=== PATIENT | female | born 1945 | race Caucasian/White ===

== ENCOUNTER → 2022-04-28 14:32 | Outpatient (BNVA) | payer MEDICARE, SELFPAY | PROVIDERS: PCP Family Medicine; Referring Provider Family Medicine; Visit Provider Physician Assistant Surgical | DX: Z13.89 Encounter for screening for other disorder (principal) ==

== ENCOUNTER → 2022-05-02 13:25 | Outpatient (BNVA) | payer MEDICARE, SELFPAY | PROVIDERS: PCP Family Medicine; Visit Provider Physician Assistant Surgical | DX: E66.9 Obesity, unspecified (principal); Z68.39 Body mass index [BMI] 39.0-39.9, adult | CPT/HCPCS: 99202 ==

== ENCOUNTER 2022-05-06 08:27 | Outpatient (REF) | payer MEDICARE, SELFPAY ==
--- NOTE | ~2022-05-06 | XR_ITS ---
EXAMINATION: XR CHEST CLINICAL INFORMATION: Obesity COMPARISON: None TECHNIQUE: 2 views of the chest were obtained. FINDINGS: No significant abnormality is noted involving the heart, lungs, mediastinum, bony thorax or soft tissues. XR/XR chest 2V IMPRESSION: Unremarkable chest examination.
--- NOTE | 2022-05-06 08:34 | ECG_ITS ---
Test Reason : e66.09 Blood Pressure : / mmHG Vent. Rate : 075 BPM Atrial Rate : 075 BPM P-R Int : 178 ms QRS Dur : 096 ms QT Int : 380 ms P-R-T Axes : 068 000 050 degrees QTc Int : 424 ms Normal sinus rhythm Inferior infarct , age undetermined Abnormal ECG No previous ECGs available Referred By: Ayo Hilario Electronically Signed By:Vincent Clifford
== END 2022-05-06 08:28 | disposition home or self-care (01) ==
LOC: HO.XRAY 08:27
PROVIDERS: PCP Family Medicine; Visit Provider Physician Assistant Surgical
DX: E66.9 Obesity, unspecified (principal); E11.9 Type 2 diabetes mellitus without complications; I10 Essential (primary) hypertension; E78.00 Pure hypercholesterolemia, unspecified
CPT/HCPCS: 71046; 93005

== ENCOUNTER 2022-05-07 07:00 | Outpatient (REF) | payer MEDICARE, SELFPAY ==
[2022-05-07 07:22] LABS: MANUAL DIFF FLAG NO
[2022-05-07 08:11] LABS: Basophils Absolute Auto 0.1 X10*3/uL (0.0-0.2); Basophils Percent Auto 0.6 % (0-2); Eosinophils Absolute Auto 0.1 X10*3/uL (0.0-0.4); Eosinophils Percent Auto 1.5 % (0-4); Hematocrit 42.8 % (37.0-47.0); Hemoglobin 14.3 g/dl (12.0-16.0); Imm Gran Abs Auto 0.03 X10*3/uL (0.00-0.03); Imm Gran Pct Auto 0.4 % (0.0-0.4); Lymphocytes Absolute Auto 2.8 X10*3/uL (1.2-4.9); Lymphocytes Percent Auto 35.1 % (20-40); Mean Corpuscular HGB Conc 33.4 g/dl (31.0-35.0); Mean Corpuscular Hemoglobin 28.8 pg (27.0-33.0); Mean Corpuscular Volume 86.3 fL (80.0-98.0); Mean Platelet Volume 10.6 fL (9.4-12.3); Monocytes Absolute Auto 0.6 X10*3/uL (0.1-1.2); Monocytes Percent Auto 7.3 % (2-11); Neutrophils Absolute Auto 4.4 x10*3/uL (2.0-8.3); Neutrophils Percent Auto 55.1 % (45-73); PLT CLUMP 1; Red Blood Count 4.96 X10*6/uL (4.20-5.50); Red Cell Distribution Width 13.8 % (11.0-16.0); SCAN SMEAR FLAG 1
[2022-05-07 08:34] LABS: Estimated Average Glucose 140 mg/dL; Hemoglobin A1c % 6.5 %
[2022-05-07 08:42] LABS: Alanine Aminotransferase 31 U/L (0-31); Albumin Level 4.6 g/dL (3.5-5.0); Alkaline Phosphatase 75 U/L (39-117); Anion Gap 20 (12-20); Aspartate Amino Transferase 29 U/L (5-31); Bilirubin Total 0.8 mg/dL (0.0-1.0); Blood Urea Nitrogen 21 mg/dL (9-16); C Reactive Protein 0.13 mg/dL (< or = 0.50); Carbon Dioxide 26 mmol/L (22-29); Chloride 98 mmol/L (96-108); Cholesterol 145 mg/dL; Estimated Glomerular Filt Rate > 60; Glucose Random 167 mg/dL (60-115); HDL Cholesterol 42 mg/dL; Iron 98 mcg/dL (30-160); LDL Cholesterol Calculated 66 mg/dl; Percent Iron Saturation 29 % (15-50); Potassium 3.7 mmol/L (3.3-5.1); Sodium 140 mmol/L (135-145); Total Iron Binding Capacity 337 mcg/dL (228-428); Triglycerides 188 mg/dL; Unsaturated Iron Binding 239 ug/dL
[2022-05-07 09:07] LABS: Ferritin 74 ng/mL (10-250); Folate 18.6 ng/mL (> or = 4.0); Insulin 14 uU/mL (2-29); TSH reflex Free T4 1.11 uIU/mL (0.32-4.0); Vitamin B12 348 pg/mL (200-900); Vitamin D 25-OH Total 44.9 ng/mL (>30)
[2022-05-09 15:44] LABS: PTHI 43 pg/mL (16-77)
[2022-05-11 18:43] LABS: Zinc 102 mcg/dL (60-130)
[2022-05-11 22:52] LABS: Vitamin A 86 mcg/dL (38-98)
[2022-05-14 11:42] LABS: Vitamin B1 10 nmol/L (8-30)
== END 2022-05-07 07:01 | disposition home or self-care (01) ==
LOC: HO.LAB 07:00
PROVIDERS: PCP Family Medicine; Visit Provider Physician Assistant Surgical
DX: I10 Essential (primary) hypertension (principal); E66.9 Obesity, unspecified; E78.00 Pure hypercholesterolemia, unspecified; E11.9 Type 2 diabetes mellitus without complications
CPT/HCPCS: 36415; 80053; 80061; 82306; 82607; 82728; 82746; 83036; 83525; 83540; 83970; 84425; 84443; 84590; 84630; 85025; 86140

== ENCOUNTER → 2022-05-12 10:26 | Outpatient (REF) | payer MEDICARE, SELFPAY ==
--- NOTE | 2022-05-12 10:30 | CA_ITS ---
Acquisition Time: 2022-05-12 11:00:06 Total Exercise Time: 00:05:35 Test Indications: R94.31 - Abnormal electrocardio Medications: Protocol: KATHERINE Max HR: 130 BPM 89% of Pred: 146 BPM Max BP: 162/068 mmHG Max Work Load: 7.0 METS Exercise stress test with exercise 5 min 35 sec of Katherine protocol, achieving 89% MPHR, 7 METs, with moderate sob and need to stop, no chest discomfort, without arrythmia, with normotensive response to exercise, without EKG changes meeting criteria for ischemia. In recovery her breathing quickly improved. Test reviewed with Dr Richardson Referred By: Ayo Hilario Overread By: DONAL JAQUEZ
== END ==
LOC: HO.CARD 10:26
PROVIDERS: Visit Provider Physician Assistant Surgical
DX: Z01.818 Encounter for other preprocedural examination (principal); R06.02 Shortness of breath; R94.31 Abnormal electrocardiogram [ECG] [EKG]
CPT/HCPCS: 93017

== ENCOUNTER → 2022-05-17 12:50 | Outpatient (BNVA) | payer MEDICARE, SELFPAY | PROVIDERS: PCP Family Medicine; Visit Provider Physician Assistant Surgical | DX: E66.9 Obesity, unspecified (principal); Z11.0 Encounter for screening for intestinal infectious diseases; Z68.37 Body mass index [BMI] 37.0-37.9, adult | CPT/HCPCS: 83013; 99211; 99212 ==

== ENCOUNTER 2022-05-17 16:43 | Outpatient (REF) | payer MEDICARE, SELFPAY ==
[2022-05-18 12:05] LABS: H Pylori Breath Test Negative (Negative)
== END 2022-05-17 16:44 | disposition home or self-care (01) ==
LOC: HO.LNP 16:43
PROVIDERS: Visit Provider Physician Assistant Surgical
DX: Z13.89 Encounter for screening for other disorder (principal)
CPT/HCPCS: 83013

== ENCOUNTER → 2022-05-24 13:51 | Outpatient (BNVA) | payer MEDICARE, SELFPAY | PROVIDERS: PCP Family Medicine; Referring Provider Family Medicine; Visit Provider Physician Assistant Surgical | DX: R94.31 Abnormal electrocardiogram [ECG] [EKG] (principal); E11.9 Type 2 diabetes mellitus without complications; E66.9 Obesity, unspecified; E78.00 Pure hypercholesterolemia, unspecified; I10 Essential (primary) hypertension; Z68.37 Body mass index [BMI] 37.0-37.9, adult | CPT/HCPCS: 99202 ==

== ENCOUNTER → 2022-05-31 13:11 | Outpatient (BNVA) | payer MEDICARE, SELFPAY | PROVIDERS: PCP Family Medicine; Visit Provider Dietitian, Registered | DX: E66.9 Obesity, unspecified (principal); Z68.36 Body mass index [BMI] 36.0-36.9, adult; E11.9 Type 2 diabetes mellitus without complications; Z79.4 Long term (current) use of insulin | CPT/HCPCS: 97802 ==

== ENCOUNTER → 2022-06-09 13:00 | Outpatient (BNVA) | payer MEDICARE, SELFPAY | PROVIDERS: PCP Family Medicine; Visit Provider Counselor Mental Health | DX: F43.20 Adjustment disorder, unspecified (principal); E66.9 Obesity, unspecified | CPT/HCPCS: 90791 ==

== ENCOUNTER → 2022-06-10 13:19 | Outpatient (BNVA) | payer MEDICARE, SELFPAY | PROVIDERS: PCP Family Medicine; Visit Provider Physician Assistant Surgical | DX: E66.9 Obesity, unspecified (principal); E11.9 Type 2 diabetes mellitus without complications; Z68.35 Body mass index [BMI] 35.0-35.9, adult | CPT/HCPCS: 99212 ==

== ENCOUNTER 2022-06-16 08:16 | Outpatient (REF) | payer MEDICARE, SELFPAY ==
--- NOTE | ~2022-06-16 | FL_ITS ---
EXAMINATION: XR FLUOROSCOPY UPPER GI WITH AIR CLINICAL INFORMATION: Obesity. COMPARISON: None available. TECHNIQUE: Routine upper GI air-contrast study was performed in upright and lying position. FINDINGS: Following oral administration of thick barium and effervescent gas there is normal propagation of bolus from the oral cavity through the pharynx, esophagus into stomach without any evidence of obstruction, narrowing or stricture. There is small hiatal hernia in upright view. On placing patient supine and prone the course, caliber and peristalsis of the stomach are normal. There is a small hiatal hernia with mild gastroesophageal reflux. There is a prominent duodenal papilloma or mucosal fold at the insertion of CBD. FLUOROSCOPY TIME: 2.2 minutes DOSE AREA PRODUCT: 47.81 uGy-m2 (microgray-meter squared) FL/FL upper GI w air IMPRESSION: Small hiatal hernia in upright and lying position with mild gastroesophageal reflux. Prominent duodenal ampulla at insertion of CBD.
--- NOTE | ~2022-06-16 | US_ITS ---
EXAMINATION: US COMPLETE ABDOMEN WITH LIVER ELASTOGRAPHY CLINICAL INFORMATION: Obesity COMPARISON: None available. TECHNIQUE: Real-time imaging of the abdominal viscera. Noninvasive ultrasound liver fibrosis assessment is performed using Kane ElastPQ point quantification shear wave elastography (2D-SWE) with a C5-2 MHz transducer. Multiple elastography samples are obtained. FINDINGS: PANCREAS: Normal. The visualized pancreatic head and body are normal in appearance. The remainder of the pancreas is obscured from visualization by the overlying bowel gas. ABDOMINAL AORTA: The proximal, middle, and distal aortic segments are normal in caliber. INFERIOR VENA CAVA: Visualized portions are normal. LIVER: Normal. The liver demonstrates normal size, contour and echogenicity. No focal lesion or intrahepatic biliary duct dilatation. The right lobe measures 16.0 cm in length. The left lobe measures 12.0 cm in length. Portal flow is hepatopedal. Shear wave liver elastography median stiffness is 1.3 m/s (reference: normal median stiffness is 1.3 m/s or less). IQR/median stiffness to assess sampling precision is 0.08 (reference: good quality data set is IQR/median stiffness of 0.15 or less). GALLBLADDER: Status post cholecystectomy. COMMON BILE DUCT: Normal in caliber measuring 0.6 cm in diameter. RIGHT KIDNEY: Normal. No hydronephrosis. No renal calculi or focal parenchymal lesions. The kidney measures 11.1 cm in maximum dimension. LEFT KIDNEY: Normal. No hydronephrosis. No renal calculi or focal parenchymal lesions. The kidney measures 10.4 cm in maximum dimension. SPLEEN: Normal. The spleen measures 10.6 cm in maximum dimension. FREE FLUID: None. US/US abdomen comp w elastography IMPRESSION: 1. Normal abdominal ultrasound study. 2. Liver elastography: Measurements are consistent with a high probability of normal liver stiffness. REFERENCE: Society of Radiologists in Ultrasound Liver Stiffness Thresholds (2020): LIVER STIFFNESS THRESHOLDS: *Liver Stiffness equal or less than 1.3 m/s: High probability of being normal. *Liver Stiffness less than 1.7 m/s: In the absence of other known clinical signs, rules out compensated advanced chronic liver disease. *Liver Stiffness 1.7-2.1 m/s: Suggestive of compensated advanced chronic liver disease but need further test for confirmation. *Liver Stiffness over 2.1 m/s: Rules in compensated advanced chronic liver disease. *Liver Stiffness over 2.4 m/s: Suggestive of clinically significant portal hypertension. QUALITY OF DATA SET: *IQR/Median value equal or less than 0.15 implies a quality data set. *IQR/Median value over 0.15 implies a poor quality data set. SIGNIFICANT CHANGE FROM PRIOR EXAM: Significant change if liver stiffness measurement is 10% or greater from prior exam. OTHER CONSIDERATIONS: The stage of liver fibrosis may be overestimated in the setting of acute hepatitis, liver inflammation, elevated liver function tests, hepatic vascular congestion, obstructive cholestasis, non-fasting state, and infiltrative diseases such as amyloidosis and lymphoma. In some patients with NAFLD, the liver stiffness thresholds for compensated advanced chronic liver disease may be lower. In causes other than viral hepatitis and NAFLD, liver stiffness thresholds are not well established.
== END 2022-06-16 08:17 | disposition home or self-care (01) ==
LOC: HO.US 08:16
PROVIDERS: PCP Family Medicine; Visit Provider Physician Assistant Surgical
DX: E66.9 Obesity, unspecified (principal); E11.9 Type 2 diabetes mellitus without complications; E78.00 Pure hypercholesterolemia, unspecified; I10 Essential (primary) hypertension
CPT/HCPCS: 74246; 76705; 76981

== ENCOUNTER → 2022-06-21 13:17 | Outpatient (BNVA) | payer MEDICARE, SELFPAY | PROVIDERS: PCP Family Medicine; Visit Provider Surgery | DX: E66.9 Obesity, unspecified (principal); E11.9 Type 2 diabetes mellitus without complications; K21.9 Gastro-esophageal reflux disease without esophagitis; I10 Essential (primary) hypertension; J45.909 Unspecified asthma, uncomplicated; E78.00 Pure hypercholesterolemia, unspecified; R94.31 Abnormal electrocardiogram [ECG] [EKG]; F43.20 Adjustment disorder, unspecified; Z68.35 Body mass index [BMI] 35.0-35.9, adult | CPT/HCPCS: 99212 ==

== ENCOUNTER → 2022-06-28 13:17 | Outpatient (BNVA) | payer MEDICARE, SELFPAY | PROVIDERS: PCP Family Medicine; Referring Provider Family Medicine; Visit Provider Dietitian, Registered | DX: E66.9 Obesity, unspecified (principal); Z68.34 Body mass index [BMI] 34.0-34.9, adult | CPT/HCPCS: 97803 ==

== ENCOUNTER → 2022-07-04 10:54 | Outpatient (BNVA) | payer MEDICARE, SELFPAY | PROVIDERS: PCP Family Medicine; Visit Provider Counselor Mental Health ==

== ENCOUNTER → 2022-07-05 13:25 | Outpatient (BNVA) | payer MEDICARE, SELFPAY | PROVIDERS: PCP Family Medicine; Visit Provider Physician Assistant Surgical | DX: E66.9 Obesity, unspecified (principal); Z68.34 Body mass index [BMI] 34.0-34.9, adult | CPT/HCPCS: 99212 ==

== ENCOUNTER → 2022-07-11 14:42 | Outpatient (REF) | payer MEDICARE, SELFPAY ==
--- NOTE | 2022-07-11 14:44 | CA_ITS ---
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 Study Quality: Technically Difficult ECG Rhythm: Sinus Conclusions: - 1. Normal LV systolic function with grade I diastolic dysfunction 2. Left atrium is moderately dilated 3. Normal cardiac valvular dopplers. 4. Normal RVSP 5. No pericardial effusion Findings Left Ventricle Normal left ventricular size, thickness, and systolic function. The visually estimated ejection fraction is between 60-65%. Spectral Doppler is indicative of an impaired relaxation filling pattern. E/E prime ratio is <8, consistent with normal filling pressures. Peak GLS is -18.2%, within acceptable limits. Right Ventricle Normal right ventricular cavity size and systolic function. Atria The left atrium is moderately dilated. There is no evidence of interatrial shunt. The right atrium is normal in size. Aortic Valve The aortic valve structure and function is likely normal. There is no aortic valve stenosis. There is no aortic valve regurgitation. Mitral Valve Normal mitral valve structure and function. There is trace mitral valve regurgitation. There is no mitral valve stenosis. Pulmonic Valve The pulmonic valve was not well visualized. Tricuspid Valve Normal tricuspid valve structure. There is trace tricuspid valve regurgitation. The right ventricular systolic pressure is normal. The right ventricular systolic pressure is 22 mmHg. Normal right atrial pressure. There is no evidence of pulmonary hypertension. Great Vessels All visible segments of the aorta are normal in size. The pulmonary artery was not well visualized. Venous The inferior vena cava is normal in size and collapses greater than 50% with inspiration. Pericardium/Pleural There is no evidence of pericardial effusion. Prior Study Comparison No prior study available for comparison. Measurements 2D Linear Measurements IVSd: 1.04 0.6-0.9/0.6-1.0 cm LVIDd: 4.37 3.9-5.3/4.2-5.9 cm LVIDd Index: 2.24 2.4-3.2/2.2-3.1 cm/m2 LVIDs: 2.94 2.0-3.6 cm LVPWd: 0.98 0.7-1.1 cm LA Diam: 3.00 2.7-3.8/3.0-4.0 cm LAIDs Index: 1.54 1.5-2.3 cm/m2 LV Mass: 184.69 67-162/88-224 g LV Mass Index: 94.71 43-95/49-115 g/m2 LVOT Diam: 2.10 3.0+(-)1.3 cm 2D Systolic Function EF 4C: 61.00 >55% EF 2C: 64.30 >55% EF BiP: 61.40 >55% Mitral Valve MV Pk E: 0.82 MV PK A: 1.08 MV Decel Time: 285.00 E/A: 0.80 E'Lateral: 13.20 E'Medial: 7.62 E/E' Med: 10.70 E/E' Lat: 6.20 PHT: 83.00 MVA PHT: 2.65 Decel [place]: 2.86 Aortic Valve AoV Pk Ray[place]undo: 1.62 AoV Mn [place]: 1.10 AoV VTI: 0.40 AoV Pk Grad: 10.00 Aov Mn Grad: 6.00 JIM Cont.VTI: 2.58 LVOT LVOT Pk Ray[place]: 1.26 LVOT Mn [place]: 0.80 LVOT VTI: 0.30 LVOT Pk Grad: 6.00 LVOT Mn Grad: 3.00 LVOT Diam: 2.10 LVOT Area: 3.46 Diastolic Function MV Pk E: 0.82 MV Pk A: 1.08 E/A: 0.80 E'Medial: 7.62 E/E' Med: 10.70 E' Laterial: 13.20 E/E' Lat: 6.20 Right Ventricle TAPSE (mm): 23.80 TVS' Raymundo: 12.30 Tricuspid Valve TR Pk Raymundo: 2.19 TR Pk Grad: 19.00 RA Press: 3.00 RVSP: 22.00 Great Vessels Aorta Sinus of Valsalva: 3.01 2.0-3.5 cm Ao Asc: 3.10 2.1-3.4 cm Updated in Other Vendor System with Status of Final Edward Richardson MD electronically signed on 07/12/2022 12:05:07 PM with status of Final
== END ==
LOC: HO.CARD 14:42
PROVIDERS: PCP Family Medicine; Visit Provider Internal Medicine
DX: I25.10 Atherosclerotic heart disease of native coronary artery without angina pectoris (principal); R94.31 Abnormal electrocardiogram [ECG] [EKG]
CPT/HCPCS: 93306; 93356

== ENCOUNTER → 2022-07-15 12:42 | Outpatient (BNVA) | payer MEDICARE, SELFPAY | PROVIDERS: PCP Family Medicine; Visit Provider Surgery ==

== ENCOUNTER → 2022-07-21 09:22 | Outpatient (BNVA) | payer MEDICARE, SELFPAY | PROVIDERS: PCP Family Medicine; Visit Provider Physician Assistant ==

== ENCOUNTER → 2022-07-22 09:49 | Outpatient (BNVA) | payer MEDICARE, SELFPAY | PROVIDERS: PCP Family Medicine; Visit Provider Dietitian, Registered | DX: E66.9 Obesity, unspecified (principal); Z68.34 Body mass index [BMI] 34.0-34.9, adult | CPT/HCPCS: 97803 ==

== ENCOUNTER → 2022-07-25 09:15 | Outpatient (BNVA) | payer MEDICARE, SELFPAY | PROVIDERS: PCP Family Medicine; Visit Provider Physician Assistant Surgical | DX: Z01.810 Encounter for preprocedural cardiovascular examination (principal); R94.31 Abnormal electrocardiogram [ECG] [EKG]; I10 Essential (primary) hypertension; E11.9 Type 2 diabetes mellitus without complications; E66.01 Morbid (severe) obesity due to excess calories; Z68.35 Body mass index [BMI] 35.0-35.9, adult | CPT/HCPCS: 99212 ==

== ENCOUNTER → 2022-07-27 13:12 | Outpatient (BNVA) | payer MEDICARE, SELFPAY | PROVIDERS: PCP Family Medicine; Visit Provider Surgery | DX: E66.01 Morbid (severe) obesity due to excess calories (principal); E11.9 Type 2 diabetes mellitus without complications; I10 Essential (primary) hypertension; K21.9 Gastro-esophageal reflux disease without esophagitis; J45.909 Unspecified asthma, uncomplicated; E78.00 Pure hypercholesterolemia, unspecified; Z68.35 Body mass index [BMI] 35.0-35.9, adult | CPT/HCPCS: 99212 ==

== ENCOUNTER 2022-08-03 06:13 | Inpatient (IN) | payer MEDICARE, SELFPAY ==
[2022-07-27 11:37] VITALS: BMI 35.4
[2022-07-28 07:00] LABS: MANUAL DIFF FLAG NO
[2022-07-28 07:46] LABS: Basophils Percent Auto 0.4 % (0-2); Eosinophils Absolute Auto 0.2 X10*3/uL (0.0-0.4); Hematocrit 41.5 % (37.0-47.0); Hemoglobin 13.6 g/dl (12.0-16.0); Imm Gran Abs Auto 0.03 X10*3/uL (0.00-0.03); Imm Gran Pct Auto 0.4 % (0.0-0.4); Lymphocytes Absolute Auto 2.8 X10*3/uL (1.2-4.9); Mean Corpuscular HGB Conc 32.8 g/dl (31.0-35.0); Mean Corpuscular Hemoglobin 28.7 pg (27.0-33.0); Mean Corpuscular Volume 87.6 fL (80.0-98.0); Mean Platelet Volume 10.4 fL (9.4-12.3); Monocytes Absolute Auto 0.5 X10*3/uL (0.1-1.2); Monocytes Percent Auto 6.3 % (2-11); Neutrophils Absolute Auto 4.5 x10*3/uL (2.0-8.3); Neutrophils Percent Auto 55.9 % (45-73); Platelet Count 336 X10*3/uL (160-400); Red Blood Count 4.74 X10*6/uL (4.20-5.50); Red Cell Distribution Width 14.6 % (11.0-16.0)
[2022-07-28 07:53] LABS: Prothrombin Time 11.2 SEC (10.0-13.1)
[2022-07-28 07:56] LABS: Estimated Average Glucose 140 mg/dL; Hemoglobin A1c % 6.5 %
[2022-07-28 08:08] LABS: Alanine Aminotransferase 35 U/L (0-31); Albumin Level 4.4 g/dL (3.5-5.0); Alkaline Phosphatase 76 U/L (39-117); Anion Gap 17 (12-20); Aspartate Amino Transferase 21 U/L (5-31); Bilirubin Total 0.8 mg/dL (0.0-1.0); Blood Urea Nitrogen 24 mg/dL (9-16); C Reactive Protein 0.17 mg/dL (< or = 0.50); Calcium 10.4 mg/dL (8.4-10.2); Carbon Dioxide 28 mmol/L (22-29); Chloride 102 mmol/L (96-108); Cholesterol 193 mg/dL; Creatinine Clr Calc Pharmacy 65.7; Estimated Glomerular Filt Rate > 60; Glucose Random 181 mg/dL (60-115); HDL Cholesterol 42 mg/dL; Iron 95 mcg/dL (30-160); LDL Cholesterol Calculated 103 mg/dl; Percent Iron Saturation 31 % (15-50); Potassium 4.7 mmol/L (3.3-5.1); Sodium 142 mmol/L (135-145); Total Iron Binding Capacity 308 mcg/dL (228-428); Total Protein 6.6 g/dL (6.5-8.0); Triglycerides 243 mg/dL; Unsaturated Iron Binding 213 ug/dL
[2022-07-28 08:35] LABS: Ferritin 75 ng/mL (10-250); Vitamin B12 388 pg/mL (200-900); Vitamin D 25-OH Total 55.5 ng/mL (>30)
[2022-07-29 14:08] LABS: Calcium (PTHI) 10.4 mg/dL (8.6-10.4); PTHI 65 pg/mL (16-77)
[2022-08-02 05:09] LABS: Zinc 91 mcg/dL (60-130)
--- NOTE | 2022-08-02 09:47 | HO.ANESPROP2 ---
Documented by User: Esther Sanchez NP 08/02/22 09:51 HPI - Anesthesia Eval Consult details Narrative: 76yo F for Gastrectomy Sleeve, EGD, poss Diaphragmatic hernia, Poss ventral Hernia Poss Open. Cardiac cleared PMFSH Active Problems Active Problems: All Active Problems (Updated 07/27/22 @ 14:06 by Donald White MD) Hiatal hernia (Acute) Obesity (BMI 30-39.9) (Acute) Diabetes (Acute) HTN (hypertension) (Acute) GERD (gastroesophageal reflux disease) (Acute) Asthma (Acute) Hypercholesterolemia (Acute) Abnormal EKG (Acute) Adjustment disorder, unspecified (Acute) Preoperative cardiovascular examination (Acute) Morbid obesity due to excess calories (Acute) Past Medical History Medical History Asthma Diabetes Dry eyes Eczema GERD (gastroesophageal reflux disease) Hiatal hernia HTN (hypertension) Obesity Osteoarthritis Family History Family History Mother No problems noted. Father No problems noted. Brother Diabetes Brother Diabetes Brother Cancer Heart disease Surgical History Surgical History Hx of appendectomy Hx of cholecystectomy Hx of colonoscopy Hx of tonsillectomy Hx of unilateral oophorectomy Hx of unilateral salpingectomy Social History Social History Are you a primary childbirth and infant care teacher to a significant other at home: No Do you presently have visiting nurse or other home services: No Alcohol intake: never Patient Tobacco Use Status: Former Tobacco user Quit Date: 25 yrs ago Tobacco use type: Cigarette Second Hand Smoke Exposure: No Use of substances other than those prescribed or required for medical reasons: No Have you been hit, kicked, punched, or otherwise hurt by someone within the past year? If so, by whom?: No Are you DNR?: No Advance Directives: No Advance Directives Information Provided: Yes (Info Mailed w/ pre-op instructions) Advance Directives on File: No Recently lost weight without trying: No How much weight loss: 14-23 pounds Nutrition Risks: No Nutritional Risk Poor oral hygiene: No (Capped teeth) Meds Allergies Allergy/AdvReac Type Severity Reaction Status Date / Time azithromycin Allergy Mild Hives Verified 07/27/22 13:19 cyclosporine Allergy Mild Hives Verified 07/27/22 13:19 iodine Allergy Mild Anaphylaxis Verified 07/27/22 13:19 Latex, Natural Rubber Allergy Mild Anaphylaxis Verified 07/27/22 13:19 morphine Allergy Mild Headache Verified 07/27/22 13:19 Penicillins Allergy Mild Hives Verified 07/27/22 13:19 umeclidinium Allergy Mild Hives Verified 07/27/22 13:19 [From [place] Ellipta] EPINEPHRINE Allergy Mild RAPID Uncoded 07/25/22 15:11 HEARTBEAT Home Medications Medication Instructions Recorded Confirmed Last Taken Type ZINC 50 mg PO DAILY 04/28/22 07/27/22 Unknown History albuterol sulfate 2.5 mg/3 mL 2.5 mg inhalation BID PRN Wheezing 04/28/22 07/27/22 Unknown History (0.083 %) solution for nebulization albuterol sulfate 90 mcg/actuation 2 inh inhalation Q4-6H PRN Wheezing 04/28/22 07/27/22 Unknown History breath activated powder inhaler amlodipine 10 mg tablet 10 mg PO DAILY 04/28/22 07/27/22 08/03/22 History atorvastatin 40 mg tablet (Lipitor) 40 mg PO QPM 04/28/22 07/27/22 Unknown History cetirizine 10 mg capsule (Zyrtec) 10 mg PO DAILY PRN Allergy Symptoms 04/28/22 07/27/22 Unknown History desoximetasone 0.25 % topical cream 1 appl topical DAILY PRN Rash 04/28/22 07/27/22 Unknown History docusate sodium 100 mg capsule 100 mg PO DAILY 04/28/22 07/27/22 Unknown History (Colace) econazole 1 % topical cream 1 appl topical DAILY 04/28/22 07/27/22 Unknown History epinephrine 0.3 mg/0.3 mL 0.3 mg IM Q4H PRN Anaphylaxis 04/28/22 07/27/22 Unknown History injection, auto-injector (EpiPen) fluocinonide 0.05 % topical 1 appl topical BID-QID PRN as 04/28/22 07/27/22 Unknown History solution directed hydroxyzine HCl 25 mg tablet 25 mg PO BEDTIME 04/28/22 07/27/22 Unknown History losartan 100 mg tablet 100 mg PO DAILY 04/28/22 07/27/22 Unknown History pen needle, diabetic 32 gauge x 04/28/22 07/27/22 Unknown History (BD Ultra-Fine Elisa Pen Needle) fluticasone 250 mcg-salmeterol 50 1 inh inhalation BID 05/24/22 07/27/22 08/03/22 History mcg/dose blistr powdr for inhalation (Advair Diskus) esomeprazole magnesium 40 mg 40 mg PO DAILY 07/05/22 07/27/22 Unknown History capsule,delayed release (Nexium) chlorthalidone 50 mg tablet 50 mg PO DAILY 07/27/22 07/27/22 Unknown History fluticasone propionate 110 1 puff inhalation BID 07/27/22 07/27/22 Unknown History mcg/actuation HFA aerosol inhaler (Flovent HFA) multivitamin 1 tab PO DAILY 07/27/22 07/27/22 Unknown History Exam Exam Date and Time: August 02, 2022 0947 Height,Weight and Vital Signs: Height 5 ft 4.5 in Weight 95.254 kg Pertinent Lab Results Pertinent Lab Results: Laboratory Tests 07/28/22 07/28/22 07/28/22 06:50 06:59 06:59 WBC 8.0 RBC 4.74 Hgb 13.6 Hct 41.5 MCV 87.6 MCH 28.7 MCHC 32.8 RDW 14.6 Plt Count 336 MPV 10.4 Immature Gran % (Auto) 0.4 Neut % (Auto) 55.9 Lymph % (Auto) 35.0 [place] % (Auto) 6.3 Eos % (Auto) 2.0 Baso % (Auto) 0.4 Lymph # (Auto) 2.8 [place] # (Auto) 0.5 Eos # (Auto) 0.2 Baso # (Auto) 0.0 Abs Immat Gran (auto) 0.03 Absolute Neuts (auto) 4.5 Absolute Nucleated RBC 0.000 Nucleated RBC % (auto) 0.0 PT 11.2 INR 1.0 APTT 30.0 Sodium Potassium Chloride Carbon Dioxide Anion Gap BUN Creatinine Estim Creat Clear Calc Estimated GFR Random Glucose Estimat Average Glucose Hemoglobin A1c % Calcium Iron TIBC % Saturation Unsat Iron Binding Ferritin Total Bilirubin AST ALT Alkaline Phosphatase C-Reactive Protein Total Protein Albumin Triglycerides Cholesterol LDL Cholesterol, Calc HDL Cholesterol Vitamin B12 25-OH Vitamin D Total TSH PTH Intact Calcium (PTH Intact) Zinc Blood Type A Positive Antibody Screen NEGATIVE 07/28/22 07/28/22 07/28/22 06:59 06:59 06:59 WBC RBC Hgb Hct MCV MCH MCHC RDW Plt Count MPV Immature Gran % (Auto) Neut % (Auto) Lymph % (Auto) [place] % (Auto) Eos % (Auto) Baso % (Auto) Lymph # (Auto) [place] # (Auto) Eos # (Auto) Baso # (Auto) Abs Immat Gran (auto) Absolute Neuts (auto) Absolute Nucleated RBC Nucleated RBC % (auto) PT INR APTT Sodium 142 Potassium 4.7 D Chloride 102 Carbon Dioxide 28 Anion Gap 17 BUN 24 H Creatinine 0.84 Estim Creat Clear Calc 65.7 Estimated GFR > 60 Random Glucose 181 H Estimat Average Glucose 140 Hemoglobin A1c % 6.5 Calcium 10.4 H Iron 95 TIBC 308 % Saturation 31 Unsat Iron Binding 213 Ferritin 75 Total Bilirubin 0.8 AST 21 ALT 35 H Alkaline Phosphatase 76 C-Reactive Protein 0.17 Total Protein 6.6 Albumin 4.4 Triglycerides 243 Cholesterol 193 LDL Cholesterol, Calc 103 HDL Cholesterol 42 Vitamin B12 388 25-OH Vitamin D Total 55.5 TSH 1.40 PTH Intact 65 Calcium (PTH Intact) 10.4 Zinc Blood Type Antibody Screen 07/28/22 06:59 WBC RBC Hgb Hct MCV MCH MCHC RDW Plt Count MPV Immature Gran % (Auto) Neut % (Auto) Lymph % (Auto) [place] % (Auto) Eos % (Auto) Baso % (Auto) Lymph # (Auto) [place] # (Auto) Eos # (Auto) Baso # (Auto) Abs Immat Gran (auto) Absolute Neuts (auto) Absolute Nucleated RBC Nucleated RBC % (auto) PT INR APTT Sodium Potassium Chloride Carbon Dioxide Anion Gap BUN Creatinine Estim Creat Clear Calc Estimated GFR Random Glucose Estimat Average Glucose Hemoglobin A1c % Calcium Iron TIBC % Saturation Unsat Iron Binding Ferritin Total Bilirubin AST ALT Alkaline Phosphatase C-Reactive Protein Total Protein Albumin Triglycerides Cholesterol LDL Cholesterol, Calc HDL Cholesterol Vitamin B12 25-OH Vitamin D Total TSH PTH Intact Calcium (PTH Intact) Zinc 91 Blood Type Antibody Screen Narrative Narrative: EKG 05/2022 Vent. Rate : 075 BPM ? ? Atrial Rate : 075 BPM ?? P-R Int : 178 ms? QRS Dur : 096 ms ? ? QT Int : 380 ms ? ? ? P-R-T Axes : 068 000 050 degrees ?? QTc Int : 424 ms ? Normal sinus rhythm Inferior infarct , age undetermined Abnormal ECG No previous ECGs available Exercise Stress 05/2022 Protocol: TRU ? Max HR: 130 BPM? 89% of? Pred: 146 BPM Max BP: 162/068 mmHG Max Work Load: 7.0 METS ? Exercise stress test with exercise 5 min 35 sec of Tru protocol, achieving 89% ?MPHR, 7 METs, with moderate sob and need to stop, no chest discomfort, without ?arrythmia, with normotensive response to exercise, without EKG changes meeting ?criteria for ischemia. In recovery her breathing quickly improved.? Test ?reviewed with Dr Richardson ECHO 07/2022 Conclusions: - 1. Normal LV systolic function with grade I diastolic? dysfunction? 2. Left atrium is moderately dilated ? 3. Normal cardiac valvular dopplers. ? 4. Normal RVSP ? 5. No pericardial effusion ?? Assessment and Plan Assessment Anesthesia Assessment: Chart Reviewed Documented by User: Daly Blum MD 08/03/22 09:46 [facility] Active Problems Active Problems: All Active Problems (Updated 08/03/22 @ 14:06 by Daly Blum MD) Hiatal hernia (Acute) Obesity (BMI 30-39.9) (Acute) Diabetes (Acute) HTN (hypertension) (Acute) GERD (gastroesophageal reflux disease) (Acute) Asthma (Acute) Hypercholesterolemia (Acute) Abnormal EKG (Acute) Adjustment disorder, unspecified (Acute) Preoperative cardiovascular examination (Acute) Morbid obesity due to excess calories (Acute) Denies RUEL Past Medical History Medical History Asthma Diabetes Dry eyes Eczema GERD (gastroesophageal reflux disease) Hiatal hernia HTN (hypertension) Obesity Osteoarthritis Family History Family History Mother No problems noted. Father No problems noted. Brother Diabetes Brother Diabetes Brother Cancer Heart disease Family history of problems with anesthesia: No Surgical History Surgical History Hx of appendectomy Hx of cholecystectomy Hx of colonoscopy Hx of tonsillectomy Hx of unilateral oophorectomy Hx of unilateral salpingectomy History of Problems with Anesthesia: No Social History Social History Are you a primary childbirth and infant care teacher to a significant other at home: No Do you presently have visiting nurse or other home services: No Alcohol intake: never Patient Tobacco Use Status: Former Tobacco user Quit Date: 25 yrs ago Tobacco use type: Cigarette Second Hand Smoke Exposure: No Use of substances other than those prescribed or required for medical reasons: No Have you been hit, kicked, punched, or otherwise hurt by someone within the past year? If so, by whom?: No Are you DNR?: No Advance Directives: No Advance Directives Information Provided: Yes (Info Mailed w/ pre-op instructions) Advance Directives on File: No Recently lost weight without trying: No How much weight loss: 14-23 pounds Nutrition Risks: No Nutritional Risk Poor oral hygiene: No (Capped teeth) Meds Allergies Allergy/AdvReac Type Severity Reaction Status Date / Time azithromycin Allergy Mild Hives Verified 07/27/22 13:19 cyclosporine Allergy Mild Hives Verified 07/27/22 13:19 iodine Allergy Mild Anaphylaxis Verified 07/27/22 13:19 Latex, Natural Rubber Allergy Mild Anaphylaxis Verified 07/27/22 13:19 morphine Allergy Mild Headache Verified 07/27/22 13:19 Penicillins Allergy Mild Hives Verified 07/27/22 13:19 umeclidinium Allergy Mild Hives Verified 07/27/22 13:19 [From [place] Ellipta] EPINEPHRINE Allergy Mild RAPID Uncoded 07/25/22 15:11 HEARTBEAT Home Medications Medication Instructions Recorded Confirmed Last Taken Type ZINC 50 mg PO DAILY 04/28/22 07/27/22 Unknown History albuterol sulfate 2.5 mg/3 mL 2.5 mg inhalation BID PRN Wheezing 04/28/22 07/27/22 Unknown History (0.083 %) solution for nebulization albuterol sulfate 90 mcg/actuation 2 inh inhalation Q4-6H PRN Wheezing 04/28/22 07/27/22 Unknown History breath activated powder inhaler amlodipine 10 mg tablet 10 mg PO DAILY 04/28/22 07/27/22 08/03/22 History atorvastatin 40 mg tablet (Lipitor) 40 mg PO QPM 04/28/22 07/27/22 Unknown History cetirizine 10 mg capsule (Zyrtec) 10 mg PO DAILY PRN Allergy Symptoms 04/28/22 07/27/22 Unknown History desoximetasone 0.25 % topical cream 1 appl topical DAILY PRN Rash 04/28/22 07/27/22 Unknown History docusate sodium 100 mg capsule 100 mg PO DAILY 04/28/22 07/27/22 Unknown History (Colace) econazole 1 % topical cream 1 appl topical DAILY 04/28/22 07/27/22 Unknown History epinephrine 0.3 mg/0.3 mL 0.3 mg IM Q4H PRN Anaphylaxis 04/28/22 07/27/22 Unknown History injection, auto-injector (EpiPen) fluocinonide 0.05 % topical 1 appl topical BID-QID PRN as 04/28/22 07/27/22 Unknown History solution directed hydroxyzine HCl 25 mg tablet 25 mg PO BEDTIME 04/28/22 07/27/22 Unknown History losartan 100 mg tablet 100 mg PO DAILY 04/28/22 07/27/22 Unknown History pen needle, diabetic 32 gauge x 04/28/22 07/27/22 Unknown History (BD Ultra-Fine Elisa Pen Needle) fluticasone 250 mcg-salmeterol 50 1 inh inhalation BID 05/24/22 07/27/22 08/03/22 History mcg/dose blistr powdr for inhalation (Advair Diskus) esomeprazole magnesium 40 mg 40 mg PO DAILY 07/05/22 07/27/22 Unknown History capsule,delayed release (Nexium) chlorthalidone 50 mg tablet 50 mg PO DAILY 07/27/22 07/27/22 Unknown History fluticasone propionate 110 1 puff inhalation BID 07/27/22 07/27/22 Unknown History mcg/actuation HFA aerosol inhaler (Flovent HFA) multivitamin 1 tab PO DAILY 07/27/22 07/27/22 Unknown History Exam Height,Weight and Vital Signs: Height 5 ft 4.5 in Weight 95.254 kg Vital Signs Temp Pulse Resp BP Pulse Ox O2 Del Method 08/03/22 06:32 97.0 F 62 18 163/60 H 95 Room Air Pertinent Lab Results Pertinent Lab Results: Laboratory Tests 07/28/22 07/28/22 07/28/22 06:50 06:59 06:59 WBC 8.0 RBC 4.74 Hgb 13.6 Hct 41.5 MCV 87.6 MCH 28.7 MCHC 32.8 RDW 14.6 Plt Count 336 MPV 10.4 Immature Gran % (Auto) 0.4 Neut % (Auto) 55.9 Lymph % (Auto) 35.0 [place] % (Auto) 6.3 Eos % (Auto) 2.0 Baso % (Auto) 0.4 Lymph # (Auto) 2.8 [place] # (Auto) 0.5 Eos # (Auto) 0.2 Baso # (Auto) 0.0 Abs Immat Gran (auto) 0.03 Absolute Neuts (auto) 4.5 Absolute Nucleated RBC 0.000 Nucleated RBC % (auto) 0.0 PT 11.2 INR 1.0 APTT 30.0 Sodium Potassium Chloride Carbon Dioxide Anion Gap BUN Creatinine Estim Creat Clear Calc Estimated GFR Random Glucose Estimat Average Glucose Hemoglobin A1c % Calcium Iron TIBC % Saturation Unsat Iron Binding Ferritin Total Bilirubin AST ALT Alkaline Phosphatase C-Reactive Protein Total Protein Albumin Triglycerides Cholesterol LDL Cholesterol, Calc HDL Cholesterol Vitamin B12 25-OH Vitamin D Total TSH PTH Intact Calcium (PTH Intact) Zinc Blood Type A Positive Antibody Screen NEGATIVE 07/28/22 07/28/22 07/28/22 06:59 06:59 06:59 WBC RBC Hgb Hct MCV MCH MCHC RDW Plt Count MPV Immature Gran % (Auto) Neut % (Auto) Lymph % (Auto) [place] % (Auto) Eos % (Auto) Baso % (Auto) Lymph # (Auto) [place] # (Auto) Eos # (Auto) Baso # (Auto) Abs Immat Gran (auto) Absolute Neuts (auto) Absolute Nucleated RBC Nucleated RBC % (auto) PT INR APTT Sodium 142 Potassium 4.7 D Chloride 102 Carbon Dioxide 28 Anion Gap 17 BUN 24 H Creatinine 0.84 Estim Creat Clear Calc 65.7 Estimated GFR > 60 Random Glucose 181 H Estimat Average Glucose 140 Hemoglobin A1c % 6.5 Calcium 10.4 H Iron 95 TIBC 308 % Saturation 31 Unsat Iron Binding 213 Ferritin 75 Total Bilirubin 0.8 AST 21 ALT 35 H Alkaline Phosphatase 76 C-Reactive Protein 0.17 Total Protein 6.6 Albumin 4.4 Triglycerides 243 Cholesterol 193 LDL Cholesterol, Calc 103 HDL Cholesterol 42 Vitamin B12 388 25-OH Vitamin D Total 55.5 TSH 1.40 PTH Intact 65 Calcium (PTH Intact) 10.4 Zinc Blood Type Antibody Screen 07/28/22 06:59 WBC RBC Hgb Hct MCV MCH MCHC RDW Plt Count MPV Immature Gran % (Auto) Neut % (Auto) Lymph % (Auto) [place] % (Auto) Eos % (Auto) Baso % (Auto) Lymph # (Auto) [place] # (Auto) Eos # (Auto) Baso # (Auto) Abs Immat Gran (auto) Absolute Neuts (auto) Absolute Nucleated RBC Nucleated RBC % (auto) PT INR APTT Sodium Potassium Chloride Carbon Dioxide Anion Gap BUN Creatinine Estim Creat Clear Calc Estimated GFR Random Glucose Estimat Average Glucose Hemoglobin A1c % Calcium Iron TIBC % Saturation Unsat Iron Binding Ferritin Total Bilirubin AST ALT Alkaline Phosphatase C-Reactive Protein Total Protein Albumin Triglycerides Cholesterol LDL Cholesterol, Calc HDL Cholesterol Vitamin B12 25-OH Vitamin D Total TSH PTH Intact Calcium (PTH Intact) Zinc 91 Blood Type Antibody Screen Laboratory Results - last 24 hr 08/02/22 08/03/22 14:00 06:29 POC Glucose 198 H COVID-19 ([facility]) Negative COVID-19 Clin Com See Note Narrative Narrative: EKG 05/2022 Vent. Rate : 075 BPM ? ? Atrial Rate : 075 BPM ?? P-R Int : 178 ms? QRS Dur : 096 ms ? ? QT Int : 380 ms ? ? ? P-R-T Axes : 068 000 050 degrees ?? QTc Int : 424 ms ? Normal sinus rhythm Inferior infarct , age undetermined Abnormal ECG No previous ECGs available Exercise Stress 05/2022 Protocol: TRU ? Max HR: 130 BPM? 89% of? Pred: 146 BPM Max BP: 162/068 mmHG Max Work Load: 7.0 METS ? Exercise stress test with exercise 5 min 35 sec of Tru protocol, achieving 89% MPHR, 7 METs, with moderate sob and need to stop, no chest discomfort, without arrythmia, with normotensive response to exercise, without EKG changes meeting criteria for ischemia. In recovery her breathing quickly improved.? Test reviewed with Dr Richardson ECHO 07/2022 Conclusions: - 1. Normal LV systolic function with grade I diastolic? dysfunction. Impaired relaxation.EF 60-65%? 2. Left atrium is moderately dilated ? 3. Normal cardiac valvular dopplers. ? 4. Normal RVSP ? 5. No pericardial effusion ?? Airway Mallampati Class: III TM Dist: >3cm Neck ROM: Full Loose/Missing/Broken Teeth: Yes (Some extractions. Small teeth with excess space in between. Denies broken or loose teeth) Heart: RRR Lungs: CTAB Assessment and Plan Assessment Anesthesia Assessment: Anesthesia Plan Discussed Final Anesthetic Review Family History of Problems with Anesthesia: No History of Problems with Anesthesia: No NPO: Yes ASA Class: III Final Preanesthetic Review: No Changes in Pt Med Stat, Meds/Allgs Chart Reviewed, Consent Obtained/Reviewed and Anes Risks/Benef Reviewed Patient Risk: Intermediate Procedure Risk: Intermediate Assessment/Block/Sedation in SS: Assess/Block/Sedation- Anesthetic Plan Anesthetic Plan: GA Disposition: Standard PACU and Inp. Admit - Standard Bed
[2022-08-02 14:49] LABS: COVID-19 Test Negative (Negative); IDNOW Serial# 08D9AD1C
[2022-08-03] VITALS (12 sets, daily range): BP systolic 137–163; BP diastolic 60–78; PULSE 62–89; RESP 16–21; TEMP 36.1–36.6; O2SAT 90–95
[2022-08-03 06:39] LABS: Glucose, Whole Blood 198 mg/dL (60-115)
--- NOTE | 2022-08-03 06:41 | P.OP_ITS ---
Operative Note Operative Note Date of Service: 08/03/22 Narrative: Preop diagnosis: [Obesity, BMI 35.6/210 lb, insulin-dependent type 2 diabetes, hypertension, hypercholesterolemia, hiatal hernia with GERD] Postop diagnosis: [Same and hepatomegaly, NAFLD, hiatal hernia] Procedure: [Laparoscopic sleeve gastrectomy, laparoscopic hiatal hernia repair, gastropexy, lysis of adhesions, intraoperative endoscopy(esophagogastroscopy)] Surgeon: Donald White MD Assist: [Ayo Hilario PA-C] Anesthesia: [GET, local, bupivacaine, 0.5% with epi ] Estimated blood loss: [20cc] Specimen: [Portion of stomach with fundus] Intraoperative findings: [Adhesions from the omentum to the umbilicus and midline up to the xiphoid and round ligament of the liver were noted, in addition to left upper quadrant and right upper quadrant adhesions. 33 minutes of lysis of adhesion was required to place all trocars for surgery. A 2.5 cm hiatal hernia was noted at the diaphragmatic hiatus and required repair. An enlarged fatty liver was noted as well as plethoric vickie gastric vessels which is suggestive of probable FERMIN.] Indications: [The patient is a 76-year-old woman with a lifelong struggle with obesity and the related comorbidities of type 2 diabetes requiring insulin, hypertension, hypercholesterolemia. The patient is also had a hiatal hernia identified on upper GI and complaints of GERD for years that have worsened with her obesity. After demonstrating healthy lifestyle changes including diet and increased activity with accompanying weight loss, that he option of continued medical management versus bariatric surgery was reviewed. Discussion of laparoscopic gastric bypass and laparoscopic sleeve gastrectomy and possible need for hiatal hernia repair was discussed at length with the patient and she wanted to proceed with a sleeve gastrectomy. We discussed the probable need for hiatal hernia repair in and the inherent risks of recurrent, especially if she regains weight. I reviewed the inherent risks of this procedure which include, but are not limited to: Bleeding that could require another operation or blood transfusion; the inherent risks of transfusion reaction infectious disease from blood transfusions; the risk of staple line leaks that could cause sepsis, multi-system organ failure and ; the risk of mesenteric or deep vein thrombosis of the lower extremities that could cause a fatal pulmonary embolism was reviewed; the risk of GERD that could require conversion to gastric bypass was discussed; the risk of recurrent hiatal hernia, especially in the setting of weight regain was reviewed. The risk of weight regain if maladaptive eating and sedentary behavior continue was discussed. We discussed the age related recommendations and bariatric surgery, and given that the patient's longevity and quality of life could be significantly shortened due to her obesity related comorbidities, I believe her decision to be sound. The importance of proper diet and increased activity to augment surgical weight loss and the fact that no operation would result in weight loss of poor dietary choices and sedentary behavior are resumed were discussed at length and apparently understood. The patient seemed understand her options and wanted to proceed.] Procedure: [The patient was identified in the preoperative holding area and again an operating room 6. Patient was placed supine on the operating table. Safety straps were utilized and a footboard utilized. The patient was induced in general endotracheal anesthesia administered with excellent effect. An appropriate time-out was performed. The patient's abdomen was then widely prepped and draped in the usual manner for surgery using Chlorprep. Antibiotics per protocol were administered by Anesthesia. The pt voided her bladder studio operations manager to surgery. SCDs were utilized. After infiltrating preemptive local in the skin and subcutaneous tissues in the left subcostal space, a stab incision was made sharply and the Veress needle inserted without incident. Appropriate drop test was performed then a pneumoperitoneum of 15 mmHg was obtained using carbon dioxide. Opening pressures were 7mm Hg. Preemptive local was used at all trocar insertion sites and I began in the epigastric midline 10 cm from the xiphoid. A transverse incision was made. Next, a 5 mm 0 degree scope over a 5 mm Optiview trocar was used to access the abdomen in the in the midline of the epigastrium approxima tely 10 cm from the xiphoid. Upon entering, the obturator was removed and the abdomen explored. There was no evidence of injury from the Veress needle in it was removed. The bowel and deep structures were examined for injury from the trocar and none identified. The scope was then switched to a 5 mm 45 degree scope. Next, using preemptive local, additional 5 mm trocars were placed under direct laparoscopic vision and the 5 mm midline trocar upsized to a 12 mm to accommodate the stapler. A lysis of adhesions which added 33 minutes to operative time was required. The patient had omental adhesions from a prior umbilical hernia repair and he jean-baptiste seen in her left and right upper quadrant that were filmy and required lysis of adhesions in order to finish placing the trocars. The patient was then positioned in reverse Trendelenburg and the liver retractor deployed through the right lateral 5 mm trocar and secured. An hiatal hernia was demonstrated once the liver retractor was positioned. The stomach was already decompressed, but the 40 Q[place] ViSiGi was inserted to the GE junction by the anesthesiologist without difficulty. Dissection was begun along the greater curvature using the 5 mm [place] LigaSure for hemostasis. Dissection was then carried towards the pylorus to 3-4 cm from the pylorus and retro gastric adhesions lysed. The gastroesophageal fat pad was carefully mobilized taking care to avoid injury to the esophagus and stomach and dissection carried towards the short gastrics taking care to avoid injury to the spleen and splenic artery. The diaphragmatic hiatus was carefully examined for a hernia which was present as described, so repair was indicated. Dissection was carried from the left roxi of the diaphragm posteriorly, anteriorly to the phrenoesophageal membrane. Next, the phrenoesophogeal memberane was open anterior and the pars flaccida opened to access the right roxi of the diaphragm. The esophagus was carefully preserved, mobilized & freed into the abdomen for 3cm by dissection carried into the mediastinum. The esophagus was then surrounded with a quarter-inch [place] drain and retracted anteriorly to facilitate posterior repair. Posterior dissection of the retroesophageal area was performed to demonstrate both crurae and hiatal hernia repair was performed using one 0 silk sutures with posterior repair. Closure was observed to be adequate with [address] Next, the 40 Q[place] ViSiGi bougie was advanced by anesthesiologist under direct vision and laparoscopic guidance and positioned in the antrum using laparoscopic graspers to serve as a guide for a stapled sleeve gastrectomy. Stapling was performed with [employer] stapler with a purple 45 and then orange 45 and 60 loads. The 10 mm clip customer training specialist was used to apply additional clips to the staple line. Care was taken to be sure that the sleeve laid flat and was without stricture. Once the sleeve was complete, the portion of stomach was placed in the lower abdomen to be sent for permanent section. The staple line, gastrocolic omentum, spleen and short gastric areas were all inspected for hemostasis which was found to be good. The lavage tube was withdrawn under laparoscopic vision. The bougie was then removed. After inspecting again for hemostasis, a gastropexy was performed using 2-0 Polysorb suture to secure the sleeve gastrectomy to the gastrocolic omentum with intracorporeal suture technique. Next, I broke scrub perform an on-table upper endoscopy to assess the sleeve and the esophagus and stomach. The patient was returned to neutral position and the Olympus 160 gastroscope was advanced taking care to preserve the endotracheal tube. The esophagus was intubated without incident. Minimal air was insufflated and the scope advanced into the newly formed sleeve. The staple line was inspected for hemostasis and the morphology of the sleeve appeared straight with a uniform diameter. Intraoperatively, there was no evidence of staple line leak as my surgical supply assistant instilled sterile saline into the operative field via endoscope. The scope was then used to aspirate the air from the sleeve withdrawn and removed. I then rescrubbed to return to the operative field and again inspected the field for hemostasis. The patient was again placed in reverse Trendelenburg. After final assessment for hemostasis, the patient was returned to neutral position, a Natalie used to withdraw the stomach which was sent for permanent section. The fascia of the 12 mm midline was closed using an 0 Polysorb figure of 8 on a suture passer under direct laparoscopic vision. The abdomen was then deflated and all trocars removed. The suture was then tied and the skin closed with 4-0 Monocryl subcuticular sutures. The abdomen was then washed and dried, benzoin and Steri-Strips, 2x2s & Tegaderms. The patient tolerated the procedure well was then extubated and sent to PACU in stable condition. All sponge needle and instrument counts were correct x2. At the patient's request, I contacted Doris Looney at [phone] to apprise her of the operation, typical postoperative course, possible need to alter the course and answered her questions. Preoperatively, the patient noted that she would buy the prescribed Carafate elixir rather than have tablets.]
--- NOTE | 2022-08-03 06:41 | MHC.SHP ---
Pre-Procedural Eval Section A Date of Service: 08/03/22 The patient is an INPATIENT: Yes The History & Physical has been completed within 30 days and I have reviewed it.: Yes Section B Chief Complaint: Obesity, BMI 35.5, DM2, HTN, Hypercholesterolemia Allergies: Allergies Allergy/AdvReac Type Severity Reaction Status Date / Time azithromycin Allergy Mild Hives Verified 07/27/22 13:19 cyclosporine Allergy Mild Hives Verified 07/27/22 13:19 iodine Allergy Mild Anaphylaxis Verified 07/27/22 13:19 Latex, Natural Rubber Allergy Mild Anaphylaxis Verified 07/27/22 13:19 morphine Allergy Mild Headache Verified 07/27/22 13:19 Penicillins Allergy Mild Hives Verified 07/27/22 13:19 umeclidinium Allergy Mild Hives Verified 07/27/22 13:19 [From Incruse Ellipta] EPINEPHRINE Allergy Mild RAPID Uncoded 07/25/22 15:11 HEARTBEAT Plan I have reviewed the history and physical and performed a pertinent physical examination on my patient. No changes have occurred unless specified. Time Spent With Patient Time: Total time managing care of this patient today ____ minutes.
[2022-08-03] MEDS: Lactated Ringers 1,000 ML 150 ML IVCONT (06:55)
[2022-08-03] MEDS: Aprepitant 32 MG/4.4 ML VIAL IVPUSH (06:55)
--- NOTE | 2022-08-03 13:16 | PM.DS ---
DS: Providers Provider Date of Service: 08/04/22 Date of admission: 08/03/22 06:13 Primary care physician: Elyse Vasquez MD DS: Summary Hospital Course Hospital Course: ADMITTING DIAGNOSIS: obesity,HTN, HLD, GERD, DM, asthma ? DISCHARGE DIAGNOSIS: same, s/p laparoscopic sleeve gastrectomy and repair diaphragmatic hernia and lysis of adhesions ? PAST SURGICAL HISTORY: appendectomy, laparoscopic cholecystectomy, oophorectomy, salpingectomy ? PROCEDURE: upper endoscopy, laparoscopic sleeve gastrectomy and repair of diaphragmatic hernia hernia and lysis of adhesions ? DISCHARGE SUMMARY: ? History of Present Illness: ? The patient is a?76 year-old woman with a BMI of?39.8? kg/m2 and associated co-morbidities as described above. The patient had extensive work-up,lost?25 lbs preoperatively and was electively scheduled for laparoscopic, possible open sleeve gastrectomy and gastropexy. Risks and complications of the surgery were discussed with the patient in advance, particularly the possibility of , pulmonary embolism, anastomotic leak, bleeding, bowel injury, GERD, cardiac, renal or pulmonary complications. The patient understood all the risks and was in agreement with the surgical plan. ? Hospital Course: ? The patient underwent an uneventful laparoscopic sleeve gastrectomy with gastropexy and repair of diaphragmatic hernia on the day of admission. Postoperatively, the patient was transferred to the surgical floor. The patient received IV Acetaminophen and IV dilaudid for pain control. Patient was started on bariatric phase 1 diet POD #0. On postoperative day one, the patient was feeling well without nausea, vomiting, fevers, or tachycardia. The patient had some mild incisional pain and the abdomen was soft. ? On the morning of postoperative day one, the patient was continued on 1 ounce of water or ice every half hour. During the day, the patient did fairly well, having some incisional pain, but able to ambulate adequately and to tolerate liquids well. ? Since the patient is doing well, we decided that the patient was ready to be discharged. The patient was given instructions to follow-up with me next week and to call my office for any fever over 101, persistent abdominal pain, nausea, vomiting, GERD, symptoms of DVT such as calf tenderness, or leg swelling, or pulmonary embolism such as chest pain or shortness of breath. The patient was also instructed to drink 40-60 ounces of liquids per day using the 1-ounce cups. The patient had been given prescriptions for Tylenol for pain, Zofran prn for nausea, and pantoprazole and carafate previously. The patient was encouraged to ambulate and use the incentive spirometer. The patient was allowed to shower, but no baths, and encouraged to stay active at home. All of these instructions were given to the patient personally. All questions were answered and the patient understood all instructions, the instructions were also given to the patient in print. Time Spent with Patient Time attestation: Total time managing care of this patient today ____ minutes. Discharge coordination time: Less than 30 minutes Quality: Safe Use of Opioids Does Pt have an Active Cancer Diagnosis on the Problem List?: No Quality: Stroke Does the patient have a stroke diagnosis?: No Physical Exam Vital Signs: Vital Signs: Last Vital Signs Temp 97.0 F 08/03/22 06:32 Pulse 62 08/03/22 06:32 Resp 18 08/03/22 06:32 BP 163/60 H 08/03/22 06:32 Pulse Ox 95 08/03/22 06:32 O2 Del Method Room Air 08/03/22 06:32 BMI result Body Mass Index 35.4 DS: Data Data Completed and Pending Pending studies at discharge: Pending at discharge 08/03/22 12:46 Surgical [PTH] Routine Labs on day of discharge: Laboratory Results - last 24 hr 08/02/22 08/03/22 14:00 06:29 POC Glucose 198 H COVID-19 ([facility]) Negative COVID-19 Clin Com See Note Discharge Plan Discharge Anticipated Discharge Date/Time: 08/04/22 10:00 Patient Disposition: Home, Self-Care Discharge Diagnosis: s/p laparoscopic sleeve gastrectomy and repair of diaphragmatic hernia Referrals: Elyse Vasquez MD [Primary Care Provider] - 1 Week Discharge Medications: Continued fluticasone propionate [Flovent HFA] 110 mcg/actuation HFA aerosol inhaler 1 puff INHALATION BID esomeprazole magnesium [Nexium] 40 mg capsule,delayed release(DR/EC) 40 mg PO DAILY hydroxyzine HCl 25 mg tablet 25 mg PO BEDTIME desoximetasone 0.25 % cream 1 appl topical DAILY PRN (Reason: Rash) econazole 1 % cream 1 appl topical DAILY fluocinonide 0.05 % solution 1 appl topical BID-QID PRN (Reason: as directed) losartan 100 mg tablet 100 mg PO DAILY atorvastatin [Lipitor] 40 mg tablet 40 mg PO QPM amlodipine 10 mg tablet 10 mg PO DAILY albuterol sulfate 90 mcg/actuation aerosol powdr breath activated 2 inh inhalation Q4-6H PRN (Reason: Wheezing) Zyrtec 10 mg capsule 10 mg PO DAILY PRN (Reason: Allergy Symptoms) epinephrine [EpiPen] 0.3 mg/0.3 mL auto-injector 0.3 mg IM Q4H PRN (Reason: Anaphylaxis) albuterol sulfate 2.5 mg /3 mL (0.083 %) solution for nebulization 2.5 mg inhalation BID PRN (Reason: Wheezing) fluticasone propion-salmeterol [Advair Diskus] 250-50 mcg/dose blister with device 1 inh inhalation BID ondansetron HCl 4 mg tablet 4 mg PO Q6H PRN (Reason: nausea and vomiting) Qty: 20 0RF sucralfate 100 mg/mL suspension 10 ml PO BID 30 Days Qty: 600 2RF acetaminophen 500 mg/15 mL liquid 500 mg PO Q6H PRN (Reason: fever or pain) Qty: 237 2RF No Action (DME) pen needle, diabetic [BD Ultra-Fine Elisa Pen Needle] 32 gauge x 5/32 needle See Rx Instructions .Route Rx Instructions: As directed Discharge Orders: Discharge Order (Routine); Ordered 08/04/22 Ordered By: Peyton Mcdermott Activity on Discharge: No heavy lifting Stand Alone Forms: Patient Portal Discharge page Care Plan Goals: weight loss Health Concerns: obesity Plan of Treatment: No tub baths, sex or returning to work until discussed at first post op appointment. No exercise, alcohol, tobacco or illegal drug use. Continue to use incentive spirometer hourly while awake. Walk in home for 5- 10 minutes every 2 hours during the first week. Follow all instructions in the bariatric handbook and call with any questions.Discharge Instructions 1. Please call your doctor or come back to the emergency room should any new symptoms arise. 2. You will receive a courtesy call from [facility] 24-48 hours after discharge. 3. Activity: abstain from alcohol, practice limited stair climbing, no bending, no driving, no exercise, no illicit substances, no lifting, no sex, no tub bath, no work. 4. Diet: continue as discussed with Dr. White. 5. Dressing Change/Wound Care: Your incision is covered by clear bandages and guaze underneath. If the area is tender, you may apply an ice pack for short intervals (no more than 20 minutes on, followed by at least 20 minutes off). Do not apply heat. Do not use creams, lotions, or topical antibiotics unless instructed to do so by your surgeon. These can cause infection or allergic reaction. 6. Call your doctor if: - Your temperature exceeds 101.5 F - You experience excessive pain or swelling - You have an unexpected reaction to medication - You have excessive bleeding - You experience continued vomiting/nausea - Your incision begins to separate - Your incision shows signs of infection such as increased redness, swelling, excessive pain, heat, or drainage (light blood or clear fluid is normal) 7. General instructions: No lifting greater than 5 lbs for the next 4 weeks[address] driving within 24 hours of taking narcotic pain medications. If you do not move your bowels in the next 2 days, please take milk of magnesia over the counter. Please follow the post op diet and do not advance your diet until you are seen in the office in about 2 weeks. Please walk around your home every hour or two to prevent blood clots from forming in your legs. You do not need to wake from sleeping to walk. Please sleep in a bed or couch to prevent kinking at the hips and knees. Please take your incentive spirometer (your lung gas operations analyst) home with you and use it for the next few days to prevent pneumonias. You may shower, no hot tubs, baths or swimming pools. Please call the office with any questions or concerns such as increasing abdominal pain, fever, chills, shortness of breath, chest pain, leg pain or swelling, or redness or drainage from your incisions. Please stay on stage 3 diet which includes sugar free clear liquids such as ice pops and jello and broth and crystal light. Avoid all carbonation. Please drink 3 protein shakes with at least 25-30 grams of protein daily or 3 of the Celebrate 4:1 shakes which can be purchased in our office. The Celebrate shakes have all of the bariatric vitamins you need if you consume these shakes. If you are drinking other protein shakes, you will need to purchase the Celebrate multivitamins and calcium that we provide in the office (they will provide all the vitamins you need). Please make sure you are consuming at least 40-60 ounces of water in addition to your 3 protein shakes daily. Do not hesitate to contact the office with any questions at . The patient's medical history has been reviewed and they are considered low risk for post op DVT and therefore DVT prophylaxis is not considered necessary. Travel after surgery was reviewed. The patient has not disclosed any travel plans during the first 30 days after surgery and they have been advised that within the first 30 days after surgery any bus, plane, train or car travel over 2 hours in duration is contraindicated due to the possibility of developing blood clots from immobility. Any travel, needs to include periods of ambulation of 10 minutes in duration every 2 hours.? The patient was instructed to discuss any plans for travel during this period with their bariatric surgeon. Assessment: stable, s/p laparoscopic sleeve gastrectomy and repair of diaphragmatic hernia Discharge Date/Time: 08/04/22 09:41
--- NOTE | 2022-08-03 13:50 | PHA.MEDREC ---
Pharmacy Consult ? Medication Reconciliation [facility] rec review against discharge notes from 08/03/22 Pharmacy has completed the medication reconciliation.
[2022-08-03 14:03] LABS: Hemoglobin 13.1 g/dl (12.0-16.0)
--- NOTE | 2022-08-03 14:17 | PM.PNGS ---
Subjective Subjective Date of Service: 08/03/22 Interval history: Patient is seen in PACU. She denies any nausea or vomiting. She is thirsty and reports expected retrosternal discomfort secondary to her hiatal hernia repair and sleeve gastrectomy. Physical Exam Vital Signs: Vital Signs: Last Vital Signs Temp 97.4 F 08/03/22 13:12 Pulse 81 08/03/22 13:42 Resp 20 08/03/22 13:42 BP 160/77 H 08/03/22 13:42 Pulse Ox 95 08/03/22 13:42 O2 Del Method Nasal Cannula wit h Capnography 08/03/22 13:42 O2 Flow Rate 2 08/03/22 13:42 FiO2 46 08/03/22 13:42 BMI result Body Mass Index 35.4 On exam, she is somnolent She is in no acute respiratory distress Dressings are intact and binder in place Objective Data Active Medications Albuterol Sulfate (Albuterol Sulfate (0.083%) 2.5 Mg/3 Ml Vial.Neb) 2.5 mg INHALE ONCE PRN PRN Reason: Shortness of Breath/Wheezing Albuterol Sulfate (Albuterol Sulfate (0.083%) 2.5 Mg/3 Ml Vial.Neb) 2.5 mg INHALE BID PRN PRN Reason: Wheezing Albuterol Sulfate (Albuterol Sulfate 90 Mcg 8 Gm Inhaler) 2 puff INHALE Q4H PRN PRN Reason: Wheezing Amlodipine Besylate (Amlodipine Besylate 10 Mg Tablet) 10 mg PO DAILY GABBY; Protocol Fentanyl (Fentanyl Citrate/Pf 100 Mcg/2 Ml Vial) 25 mcg IVPUSH Q5M PRN; Protocol PRN Reason: Pain, Moderate(Pain Scale 4-6) Fluticasone/Vilanterol (Fluticasone/Vilanterol 100/25 Blst.W.Dev) 1 puff INHALE RDAILY GABBY Hydromorphone HCl (Hydromorphone Hcl 0.5 Mg/0.5 Ml Syringe) 0.25 mg IVPUSH Q5M PRN; Protocol PRN Reason: Pain, Severe (Pain Scale 7-10) Lactated Ringer's (Lr) 1,000 mls @ 150 mls/hr IVCONT .Q6H40M [facility] Last Admin: 08/03/22 06:55 Dose: 150 mls/hr Documented By: LYNDA Promethazine HCl 6.25 mg/ (Sodium Chloride) 50.25 mls @ 201 mls/hr IV ONCE PRN PRN Reason: Nausea and Vomiting Lactated Ringer's (Lr) 1,000 mls @ 100 mls/hr IVCONT .Q10H G[facility] Ondansetron HCl (Ondansetron Hcl 4 Mg/2 Ml Vial) 4 mg IVPUSH ONCE PRN PRN Reason: Nausea and Vomiting Labs 08/03/22 13:57 07/28/22 06:59 Labs: Laboratory Results - last 24 hr 08/02/22 08/03/22 14:00 06:29 POC Glucose 198 H COVID-19 (ELIZABETH) Negative COVID-19 Clin Com See Note Procedures Date of Service Date of Service: 08/03/22 Progress Note: A&P Assessment and plan (1) S/P laparoscopic sleeve gastrectomy: Status: Acute (2) Status post repair of paraesophageal diaphragmatic hernia: Status: Acute (3) Hiatal hernia: Status: Acute (4) Obesity (BMI 30-39.9): Status: Acute (5) Diabetes: Status: Acute (6) HTN (hypertension): Status: Acute (7) GERD (gastroesophageal reflux disease): Status: Acute (8) Asthma: Status: Acute (9) Hypercholesterolemia: Status: Acute Plan See orders Start sips of water Trend labs, exam. At the patient's request, I spoke with her friend, Doris Looney, at [phone] regarding the operation, whih required ROSHNI & HHR. Time Spent With Patient Time: Total time managing care of this patient today ____ minutes. Quality Stroke Does the patient have a stroke diagnosis?: No VTE Prior VTE?: No VTE Risk Level:: Surgical - moderate VTE Device Contraindication: N/A - Device Ordered VTE Drug Contraindication: Treatment Not Tolerated
[2022-08-03 14:20] LABS: Anion Gap 13 (12-20); Blood Urea Nitrogen 17 mg/dL (9-16); Calcium 9.7 mg/dL (8.4-10.2); Carbon Dioxide 27 mmol/L (22-29); Chloride 102 mmol/L (96-108); Creatinine Clr Calc Pharmacy 57.5; Estimated Glomerular Filt Rate 57; Glucose Random 238 mg/dL (60-115); Potassium 3.4 mmol/L (3.3-5.1); Sodium 139 mmol/L (135-145)
[2022-08-03] MEDS: Acetaminophen 1,000 MG/100 ML PIGGYBACK 16.7 MG IV ×2 (15:15→21:19)
[2022-08-03] MEDS: Metoclopramide HCl 10 MG/2 ML VIAL IVPUSH (16:32)
[2022-08-03] MEDS: Insulin Lispro 100 UNIT/ML 3 ML VIAL SUBCUT ×2 (16:35→21:18)
[2022-08-03 16:37] LABS: Glucose, Whole Blood 241 mg/dL (60-115)
[2022-08-03 16:48] LABS: Vitamin B1 11 nmol/L (8-30)
[2022-08-03 20:53] LABS: Glucose, Whole Blood 201 mg/dL (60-115)
[2022-08-03] MEDS: Famotidine/PF 20 MG/2 ML VIAL IVPUSH (21:20)
[2022-08-03] MEDS: HYDROmorphone HCl 0.5 MG/0.5 ML SYRINGE 0.25 MG IVPUSH (22:14)
[2022-08-04] MEDS: Lactated Ringers 1,000 ML 100 ML IVCONT (01:29)
[2022-08-04 02:39] VITALS: BP 140/78; PULSE 82; RESP 16; TEMP 36.2; O2SAT 95
[2022-08-04 07:00] VITALS: BP 161/73; PULSE 79; RESP 18; TEMP 36.7; O2SAT 95
[2022-08-04 07:26] LABS: Glucose, Whole Blood 141 mg/dL (60-115)
--- NOTE | 2022-08-04 08:00 | P.PNGS_ITS ---
Subjective Subjective Date of Service: 08/04/22 Patient reports: feels better, pain is less and tolerating liquids well Interval history: The patient is seen walking in the halls. She went back to her room for a more thorough evaluation and discussion. She does report a headache but is having no issues with chest pain, regurgitation, nausea or vomiting. She reports that she is tolerating sips of water. She otherwise denies difficulty breathing, chest pain or shortness of breath and no leg swelling or pain. She was up to void last night. Physical Exam Vital Signs: Vital Signs: Last Vital Signs Temp 98.1 F 08/04/22 07:00 Pulse 79 08/04/22 07:00 Resp 18 08/04/22 07:00 BP 161/73 H 08/04/22 07:00 Pulse Ox 95 08/04/22 07:00 O2 Del Method Room Air 08/04/22 07:00 O2 Flow Rate 2 08/03/22 14:53 FiO2 43 08/03/22 14:27 BMI result Body Mass Index 35.4 On exam, she is in good spirits, she is nontoxic She is in no acute respiratory distress Abdominal binder dressing is intact with expected incisional pain Objective Data Active Medications Albuterol Sulfate (Albuterol Sulfate (0.083%) 2.5 Mg/3 Ml Vial.Neb) 2.5 mg INHALE ONCE PRN PRN Reason: Shortness of Breath/Wheezing Albuterol Sulfate (Albuterol Sulfate (0.083%) 2.5 Mg/3 Ml Vial.Neb) 2.5 mg INHALE BID PRN PRN Reason: Wheezing Albuterol Sulfate (Albuterol Sulfate 90 Mcg 8 Gm Inhaler) 2 puff INHALE Q4H PRN PRN Reason: Wheezing Amlodipine Besylate (Amlodipine Besylate 10 Mg Tablet) 10 mg PO DAILY [facility]; Protocol Famotidine (Famotidine/Pf 20 Mg/2 Ml Vial) 20 mg IVPUSH BID [facility] Last Admin: 08/03/22 21:20 Dose: 20 mg Documented By: ALEJANDRO Fentanyl (Fentanyl Citrate/Pf 100 Mcg/2 Ml Vial) 25 mcg IVPUSH Q5M PRN; Protocol PRN Reason: Pain, Moderate(Pain Scale 4-6) Fluticasone/Vilanterol (Fluticasone/Vilanterol 100/25 Blst.W.Dev) 1 puff INHALE [facility] Glucose (Glucose Gel 15 Gm Gel..Gram.) 15 gm PO Q15M PRN; Protocol PRN Reason: per Hypoglycemia Standing Ord. Hydromorphone HCl (Hydromorphone Hcl 0.5 Mg/0.5 Ml Syringe) 0.25 mg IVPUSH Q5M PRN; Protocol PRN Reason: Pain, Severe (Pain Scale 7-10) Hydromorphone HCl (Hydromorphone Hcl 0.5 Mg/0.5 Ml Syringe) 0.25 mg IVPUSH Q4H PRN; Protocol PRN Reason: Pain, Moderate(Pain Scale 4-6) Last Admin: 08/03/22 22:14 Dose: 0.25 mg Documented By: ALEJANDRO Promethazine HCl 6.25 mg/ (Sodium Chloride) 50.25 mls @ 201 mls/hr IV ONCE PRN PRN Reason: Nausea and Vomiting Lactated Ringer's (Lr) 1,000 mls @ 100 mls/hr IVCONT .Q10H [facility] Last Admin: 08/04/22 01:29 Dose: 100 mls/hr Documented By: ALEJANDRO Dextrose (D10) 250 mls @ 750 mls/hr IV Q15M PRN; Protocol PRN Reason: per Hypoglycemia Standing Ord. Acetaminophen (Ofirmev) 1,000 mg in 100 mls @ 16.7 mls/hr IV .Q6H [facility] Last Admin: 08/04/22 04:21 Dose: Not Given Documented By: ALEJANDRO Non-Admin Reason: IV Running Insulin Human Lispro (Insulin Lispro 100 Unit/Ml 3 Ml Vial) [facility]; Protocol Last Admin: 08/04/22 07:44 Dose: Not Given Documented By: JARAD Non-Admin Reason: No Insulin Coverage Metoclopramide HCl (Metoclopramide Hcl 10 Mg/2 Ml Vial) 10 mg IVPUSH Q6H PRN PRN Reason: Nausea Last Admin: 08/03/22 16:32 Dose: 10 mg Documented By: JARAD Ondansetron HCl (Ondansetron Hcl 4 Mg/2 Ml Vial) 4 mg IVPUSH ONCE PRN PRN Reason: Nausea and Vomiting Ondansetron HCl (Ondansetron Hcl 4 Mg/2 Ml Vial) 4 mg IVPUSH Q8H PRN PRN Reason: Nausea and Vomiting Sodium Chloride (0.9 % Sodium Chloride Flush 3 Ml Syringe) 3 ml IVFLUSH QSHIFT [facility] Last Admin: 08/04/22 07:00 Dose: Not Given Documented By: JARAD Non-Admin Reason: IV Running Labs 08/03/22 13:57 08/03/22 13:57 Labs: Laboratory Results - last 24 hr 07/28/22 08/03/22 08/03/22 06:59 13:57 16:30 Anion Gap 13 Estim Creat Clear Calc 57.5 Estimated GFR 57 POC Glucose 241 H Random Glucose 238 H Calcium 9.7 D Vitamin B1 11 08/03/22 08/04/22 20:44 07:09 Anion Gap Estim Creat Clear Calc Estimated GFR POC Glucose 201 H 141 H Random Glucose Calcium Vitamin B1 Labs from 08/04/22 are reviewed hemoglobin is stable at 13.0; white blood cell count is elevated at 16.4 which is likely due to stress response from surgery; platelet count 300 K Electrolytes are within normal parameters, BUN 11, creatinine 0.81 Glucose slightly elevated at 124 Procedures Date of Service Date of Service: 08/04/22 Progress Note: A&P Assessment and plan (1) Status post repair of paraesophageal diaphragmatic hernia: Status: Acute (2) S/P laparoscopic sleeve gastrectomy: Status: Acute (3) Hiatal hernia: Status: Acute (4) Obesity (BMI 30-39.9): Status: Acute (5) Diabetes: Status: Acute (6) HTN (hypertension): Status: Acute (7) GERD (gastroesophageal reflux disease): Status: Acute (8) Hypercholesterolemia: Status: Acute (9) Asthma: Status: Acute (10) Morbid obesity due to excess calories: Status: Acute Plan The patient appears stable for discharge. Await morning labs which were drawn at 07:30 Assuming labs are stable, the patient is okay for discharge after the PA reviews dietary instructions. 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 ADDENDUM 0830 Labs reviewed. Patient is stable for discharge assuming she is meeting high duration criteria. Can resume protein shakes today. Diabetes managed as previously outlined. Time Spent With Patient Time: Total time managing care of this patient today ____ minutes. Quality Stroke Does the patient have a stroke diagnosis?: No VTE Prior VTE?: No VTE Risk Level:: Surgical - moderate VTE Device Contraindication: N/A - Device Ordered VTE Drug Contraindication: Treatment Not Tolerated
[2022-08-04 08:04] LABS: MANUAL DIFF FLAG NO
[2022-08-04] MEDS: Famotidine/PF 20 MG/2 ML VIAL IVPUSH (08:05)
[2022-08-04] MEDS: amLODIPine Besylate 10 MG TABLET PO (08:05)
[2022-08-04 08:11] LABS: Basophils Percent Auto 0.2 % (0-2); Eosinophils Percent Auto 0.1 % (0-4); Hematocrit 38.8 % (37.0-47.0); Imm Gran Abs Auto 0.07 X10*3/uL (0.00-0.03); Imm Gran Pct Auto 0.4 % (0.0-0.4); Lymphocytes Percent Auto 12.4 % (20-40); Mean Corpuscular HGB Conc 33.5 g/dl (31.0-35.0); Mean Corpuscular Hemoglobin 28.5 pg (27.0-33.0); Mean Corpuscular Volume 85.1 fL (80.0-98.0); Mean Platelet Volume 10.3 fL (9.4-12.3); Monocytes Absolute Auto 1.2 X10*3/uL (0.1-1.2); Monocytes Percent Auto 7.1 % (2-11); Neutrophils Absolute Auto 13.1 x10*3/uL (2.0-8.3); Neutrophils Percent Auto 79.8 % (45-73); Platelet Count 300 X10*3/uL (160-400); Red Blood Count 4.56 X10*6/uL (4.20-5.50); Red Cell Distribution Width 14.2 % (11.0-16.0); White Blood Count 16.4 X10*3/uL (4.8-10.8)
[2022-08-04] MEDS: Acetaminophen 1,000 MG/100 ML PIGGYBACK 16.7 MG IV (08:12)
[2022-08-04 08:20] LABS: Anion Gap 13 (12-20); Blood Urea Nitrogen 11 mg/dL (9-16); Calcium 9.6 mg/dL (8.4-10.2); Carbon Dioxide 29 mmol/L (22-29); Chloride 102 mmol/L (96-108); Creatinine Clr Calc Pharmacy 68.2; Estimated Glomerular Filt Rate > 60; Glucose Random 142 mg/dL (60-115); Potassium 3.4 mmol/L (3.3-5.1); Sodium 141 mmol/L (135-145)
--- NOTE | 2022-08-04 09:37 | MHC.CM.PN ---
IMM 08/04/22 Female 76 s/p gastric sleeve. Patient lives w family. VAXXED,HCP+ DP home self care family transport. Patient discharged today.
--- NOTE | 2022-08-04 12:30 | HO.POSTANES ---
Post Anesthesia Evaluation Post Anesthesia Evaluation Vital Signs: Vital Signs Temp Pulse Resp BP Pulse Ox O2 Del Method 08/04/22 07:00 98.1 F 79 18 161/73 H 95 Room Air 08/04/22 02:39 97.2 F 82 16 140/78 H 95 Room Air Anesthesia: General Endotracheal-GETA Mental Status: Awake Pain Control: Satisfactory Nausea/Vomiting: None Hydration: Adequate Anesthesia-Related Issues: No Anes. Related Issues
[2022-08-04 13:33] LABS: Vitamin A 86 mcg/dL (38-98)
== END 2022-08-04 09:41 | disposition home or self-care (01) | DRG 621 ==
LOC: HO.SSSA 13:19 → HO.S3 13:39
PROVIDERS: Nurse Practitioner; Physician Assistant Surgical; Admitting Provider Surgery; PCP Family Medicine; Visit Provider Surgery
PROC: 0DB64Z3 Excision of Stomach, Percutaneous Endoscopic Approach, Vertical (ICD-10-PCS; CPT 43845; principal; 2022-08-03 08:20)
DX: E66.8 Other obesity (principal); I10 Essential (primary) hypertension; E78.00 Pure hypercholesterolemia, unspecified; K21.9 Gastro-esophageal reflux disease without esophagitis; K76.0 Fatty (change of) liver, not elsewhere classified; Z68.35 Body mass index [BMI] 35.0-35.9, adult; K44.9 Diaphragmatic hernia without obstruction or gangrene; J45.909 Unspecified asthma, uncomplicated; K66.0 Peritoneal adhesions (postprocedural) (postinfection); Z87.891 Personal history of nicotine dependence; Z91.040 Latex allergy status; Z88.1 Allergy status to other antibiotic agents; Z79.51 Long term (current) use of inhaled steroids; Z79.899 Other long term (current) drug therapy
CPT/HCPCS: 36415; 80048; 80053; 80061; 82306; 82607; 82728; 82947; 83036; 83540; 83970; 84425; 84443; 84590; 84630; 85014; 85018; 85025; 85610; 85730; 86140; 86850; 86900; 86901; 87635; 88307; 88342; C9088; C9145; J0131; J1170; J1956; J2250; J2405; J2765; J3010

== ENCOUNTER → 2022-08-10 09:44 | Outpatient (BNVA) | payer MEDICARE, SELFPAY | PROVIDERS: PCP Family Medicine; Visit Provider Physician Assistant Surgical | DX: Z98.84 Bariatric surgery status (principal) | CPT/HCPCS: 99212 ==

== ENCOUNTER → 2022-08-18 08:45 | Outpatient (BNVA) | payer MEDICARE, SELFPAY | PROVIDERS: PCP Family Medicine; Referring Provider Family Medicine; Visit Provider Physician Assistant Surgical ==

== ENCOUNTER → 2022-08-26 12:32 | Outpatient (BNVA) | payer MEDICARE, SELFPAY | PROVIDERS: PCP Family Medicine; Visit Provider Physician Assistant Surgical | DX: E66.9 Obesity, unspecified (principal); Z68.30 Body mass index [BMI] 30.0-30.9, adult; Z98.84 Bariatric surgery status | CPT/HCPCS: 99212 ==

== ENCOUNTER → 2022-09-06 13:50 | Outpatient (BNVA) | payer MEDICARE, SELFPAY | PROVIDERS: PCP Family Medicine; Visit Provider Physician Assistant Surgical | DX: E66.9 Obesity, unspecified (principal); Z68.30 Body mass index [BMI] 30.0-30.9, adult | CPT/HCPCS: 99212 ==

== ENCOUNTER 2022-10-12 14:18 | Outpatient (AMB) | payer MEDICARE, SELFPAY ==
--- NOTE | 2022-10-12 14:23 | MHC.OFFVISWM ---
Intake VS Expanded 10/12/22 14:28 Height 5 ft 4.5 in Weight 173 lb BMI 29.2 BP 128/62 Blood Pressure Location Rt brachial Blood Pressure Position Sitting Pulse 67 Pulse Source Pulse Oximeter Temp 97.7 F Temperature Source Temporal Artery Scan Pulse Oximetry 96 Oxygen Delivery Method Room Air Body Fat 60.8 Body Fat Percentage 35.2 Free Fat Mass 112.0 Muscle Mass 106.2 Visceral Mass 11.0 Water Mass 78.8 BMR 1,503 Intake Visit Reasons: (OV) PO LSG 08/03/22 Allergies azithromycin Allergy (Mild, Verified 10/12/22 14:26) Hives cyclosporine Allergy (Mild, Verified 10/12/22 14:26) Hives iodine Allergy (Mild, Verified 10/12/22 14:26) Anaphylaxis Latex, Natural Rubber Allergy (Mild, Verified 10/12/22 14:26) Anaphylaxis morphine Allergy (Mild, Verified 10/12/22 14:26) Headache Penicillins Allergy (Mild, Verified 10/12/22 14:26) Hives umeclidinium [From Incruse Ellipta] Allergy (Mild, Verified 10/12/22 14:26) Hives EPINEPHRINE Allergy (Mild, Uncoded 07/25/22 15:11) RAPID HEARTBEAT Medication List - Last Reconciled 10/12/22 by LYNN Kirby albuterol sulfate 90 mcg/actuation 2 inhalations inhalation Q4-6H PRN albuterol sulfate 2.5 mg inhalation BID PRN amlodipine 5 mg PO DAILY atorvastatin (Lipitor) 40 mg PO QPM cetirizine (Zyrtec) 10 mg PO DAILY PRN desoximetasone 0.25% 1 appl topical DAILY PRN econazole 1% 1 appl topical DAILY epinephrine (EpiPen) 0.3 mg IM Q4H PRN esomeprazole magnesium (Nexium) 40 mg PO DAILY fluocinonide 0.05% 1 appl topical BID-QID PRN fluticasone propion-salmeterol 250-50 mcg/dose (Advair Diskus) 1 inh inhalation BID fluticasone propionate 110 mcg/actuation (Flovent HFA) 1 puff inhalation BID hydroxyzine HCl 25 mg PO BEDTIME inulin 2 grams PO DAILY losartan 100 mg PO DAILY sennosides (OneLax Senna) 5 mL PO BID sucralfate 10 mL PO BID 30 days HPI HPI Comments History of Present Illness Details This?is a?77?yo female who is s/p LSG 08/03/2022[]. Presents for 9 week post op visit. Weight at last visit on 09/06/2022 was 180 pounds with a BMI of 30.4, weight today is 173 pounds, representing a 7 pound weight loss with a BMI today of 29.2.? No complaints of nausea, emesis, abdominal pain or reflux, or constipation. Reports ongoing back pain, taking liquid Tylenol and topical treatment, pain is controlled enough to let her sleep but walking is painful. Present meal plan includes: 8-10am Orgain shake, 2 scoops in 8oz Lactaid milk stopped second shake stopped bar 6pm 1oz soft solid protein this morning had 2 scrambled eggs, 1 shake taking 10 forks of protein at dinner time plus some vegetables taking MVI Exercise routine includes: walks 2.5 miles every morning, has been limited by hip pain but tries to burn 300 rogerio/day PFSH Medical History Asthma Diabetes Dry eyes Eczema GERD (gastroesophageal reflux disease) Hiatal hernia HTN (hypertension) Obesity Osteoarthritis Surgical History Hx of appendectomy Hx of cholecystectomy Hx of colonoscopy Hx of tonsillectomy Hx of unilateral oophorectomy Hx of unilateral salpingectomy Family History Mother No problems noted. Father No problems noted. Brother Diabetes Brother Diabetes Brother Cancer Heart disease Social History Are you a primary critical care unit nurse to a significant other at home: No Do you presently have visiting nurse or other home services: No Alcohol intake: never Patient Tobacco Use Status: Former Tobacco user Quit Date: 25 yrs ago Tobacco use type: Cigarette Second Hand Smoke Exposure: No service: No Current occupational status: retired Physical Exam Vital Signs: Last Vital Signs Temp 97.7 F 10/12/22 14:28 Pulse 67 10/12/22 14:28 BP 128/62 10/12/22 14:28 Pulse Ox 96 10/12/22 14:28 Oxygen Delivery Method Room Air 10/12/22 14:28 BMI result Body Mass Index 29.2 Assessment & Plan Assessment & Plan (1) S/P laparoscopic sleeve gastrectomy: Code(s): Z98.84 - Bariatric surgery status (2) Overweight: Code(s): E66.3 - Overweight Plan Pt likely low on total protein intake so weight loss is slower. We discussed that her dinnertime portions are too large. Recommended 2 eggs for breakfast, Orgain shake for lunch, Tajik yogurt for snack, 2oz protein for dinner with option for cooked veg (no raw yet). Finish carafate and PPI 3 month courses. Meal plan texted to pt. RTC 1 month. Patient is overweight and is not considered stable at this time. I spent a total of 30 minutes reviewing/updating records, examining the patient and counseling the patient on weight management as detailed above. Medications: Refilled sennosides (OneLax Senna) 5 mL PO BID 237 mL 1RF Coding Level of Care Code Est Pt Level 4 (35064) Diagnoses S/P laparoscopic sleeve gastrectomy Z98.84 Overweight E66.3
[2022-10-12 14:28] VITALS: BP 128/62; PULSE 67; TEMP 36.5; O2SAT 96; BMI 29.2
== END 2022-10-12 15:22 | disposition home or self-care (01) ==
PROVIDERS: PCP Family Medicine; Visit Provider Physician Assistant Surgical
DX: E66.3 Overweight (principal); Z68.29 Body mass index [BMI] 29.0-29.9, adult; Z90.3 Acquired absence of stomach [part of]; Z98.84 Bariatric surgery status
CPT/HCPCS: 99214

== ENCOUNTER → 2022-10-12 14:18 | Outpatient (BNVA) | payer MEDICARE, SELFPAY | PROVIDERS: PCP Family Medicine; Visit Provider Physician Assistant Surgical | DX: E66.3 Overweight (principal); M54.9 Dorsalgia, unspecified; Z68.29 Body mass index [BMI] 29.0-29.9, adult; Z90.49 Acquired absence of other specified parts of digestive tract; Z90.3 Acquired absence of stomach [part of] | CPT/HCPCS: 99212 ==

== ENCOUNTER 2022-11-16 14:12 | Outpatient (AMB) | payer MEDICARE, SELFPAY ==
--- NOTE | 2022-11-16 14:16 | MHC.OFFVISWM ---
Intake VS Expanded 11/16/22 14:23 Height 5 ft 4.5 in Weight 174 lb 6.4 oz BMI 29.5 BP 142/67 H Blood Pressure Location Rt brachial Blood Pressure Position Sitting Pulse 68 Pulse Source Pulse Oximeter Temp 96.0 F L Temperature Source Temporal Artery Scan Pulse Oximetry 97 Oxygen Delivery Method Room Air Body Fat 60.0 Body Fat Percentage 34.4 Free Fat Mass 114.4 Muscle Mass 108.6 Visceral Mass 11.0 Water Mass 80.4 BMR 1,531 Intake Visit Reasons: (OV) PO LSG 08/03/22 Allergies azithromycin Allergy (Mild, Verified 11/16/22 14:22) Hives cyclosporine Allergy (Mild, Verified 11/16/22 14:22) Hives iodine Allergy (Mild, Verified 11/16/22 14:22) Anaphylaxis Latex, Natural Rubber Allergy (Mild, Verified 11/16/22 14:22) Anaphylaxis morphine Allergy (Mild, Verified 11/16/22 14:22) Headache Penicillins Allergy (Mild, Verified 11/16/22 14:22) Hives umeclidinium [From Incruse Ellipta] Allergy (Mild, Verified 11/16/22 14:22) Hives EPINEPHRINE Allergy (Mild, Uncoded 07/25/22 15:11) RAPID HEARTBEAT Medication List - Last Reconciled 11/16/22 by LYNN Kirby albuterol sulfate 90 mcg/actuation 2 inhalations inhalation Q4-6H PRN albuterol sulfate 2.5 mg inhalation BID PRN amlodipine 5 mg PO DAILY atorvastatin (Lipitor) 40 mg PO QPM cetirizine (Zyrtec) 10 mg PO DAILY PRN desoximetasone 0.25% 1 appl topical DAILY PRN econazole 1% 1 appl topical DAILY epinephrine (EpiPen) 0.3 mg IM Q4H PRN fluocinonide 0.05% 1 appl topical BID-QID PRN fluticasone propion-salmeterol 250-50 mcg/dose (Advair Diskus) 1 inh inhalation BID fluticasone propionate 110 mcg/actuation (Flovent HFA) 1 puff inhalation BID hydroxyzine HCl 25 mg PO BEDTIME inulin 2 grams PO DAILY losartan 100 mg PO DAILY sennosides (OneLax Senna) 5 mL PO BID HPI HPI Comments History of Present Illness Details This?is a?77?yo female who is s/p LSG 08/03/2022. Presents for 3 month post op visit. Weight at last visit on 10/12/2022 was 173 pounds with a BMI of 29.2, weight today is 174.4 pounds, representing a 1.4 pound weight gain with a BMI today of 29.5.? No complaints of nausea, emesis, abdominal pain or reflux, or constipation. Present meal plan includes: for breakfast will have 2 eggs or Italian yogurt and fruit with crushed walnuts for lunch, BLT sandwich or tuna/egg salad sandwich knows her portion sizes are too large, eating a lot of bread, increased volume of vegetables thinks protein intake is low, inconsistent with AM shake frustrated by her lack of motivation taking MVI Exercise routine includes: walks up to 6 miles every morning, has been limited by hip pain but tries to burn 300 rogerio/day PFSH Medical History Asthma Diabetes Dry eyes Eczema GERD (gastroesophageal reflux disease) Hiatal hernia HTN (hypertension) Obesity Osteoarthritis Surgical History Hx of appendectomy Hx of cholecystectomy Hx of colonoscopy Hx of tonsillectomy Hx of unilateral oophorectomy Hx of unilateral salpingectomy Family History Mother No problems noted. Father No problems noted. Brother Diabetes Brother Diabetes Brother Cancer Heart disease Social History Are you a primary client care manager to a significant other at home: No Do you presently have visiting nurse or other home services: No Alcohol intake: never Patient Tobacco Use Status: Former Tobacco user Quit Date: 25 yrs ago Tobacco use type: Cigarette Second Hand Smoke Exposure: No service: No Current occupational status: retired Assessment & Plan Assessment & Plan (1) Overweight: Code(s): E66.3 - Overweight (2) S/P laparoscopic sleeve gastrectomy: Code(s): Z98.84 - Bariatric surgery status Plan Pt still not getting enough protein, eating too large portions so I explained to her how this is contributing to her hunger. Needs to prioritize protein intake, eliminate bread and another carbs, focus on protein intake with fruits/veg and avoid meals larger than 8oz total volume. Next appt with RD per pt request, to discuss meal plan options as pt is struggling to get enough protein and would like to be able to enjoy a variety of foods. Subsequent visit with me in early February for 6 month visit. Patient is overweight and is not considered stable at this time. I spent a total of 30 minutes reviewing/updating records, examining the patient and counseling the patient on weight management as detailed above. Coding Level of Care Code Est Pt Level 4 (45371) Diagnoses Overweight E66.3 S/P laparoscopic sleeve gastrectomy Z98.84
[2022-11-16 14:23] VITALS: BP 142/67; PULSE 68; TEMP 35.6; O2SAT 97; BMI 29.5
== END 2022-11-16 14:55 | disposition home or self-care (01) ==
PROVIDERS: PCP Family Medicine; Visit Provider Physician Assistant Surgical
DX: E66.3 Overweight (principal); Z68.29 Body mass index [BMI] 29.0-29.9, adult; Z90.3 Acquired absence of stomach [part of]; Z98.84 Bariatric surgery status
CPT/HCPCS: 99214

== ENCOUNTER → 2022-11-16 14:12 | Outpatient (BNVA) | payer MEDICARE, SELFPAY | PROVIDERS: PCP Family Medicine; Visit Provider Physician Assistant Surgical | DX: E66.3 Overweight (principal); Z68.29 Body mass index [BMI] 29.0-29.9, adult; Z98.84 Bariatric surgery status | CPT/HCPCS: 99212 ==

== ENCOUNTER 2022-11-25 14:44 | Outpatient (AMB) | payer MEDICARE, SELFPAY ==
--- NOTE | 2022-11-25 15:00 | MHC.AMNUTRGE ---
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 Allergies azithromycin Allergy (Mild, Verified 11/16/22 14:22) Hives cyclosporine Allergy (Mild, Verified 11/16/22 14:22) Hives iodine Allergy (Mild, Verified 11/16/22 14:22) Anaphylaxis Latex, Natural Rubber Allergy (Mild, Verified 11/16/22 14:22) Anaphylaxis morphine Allergy (Mild, Verified 11/16/22 14:22) Headache Penicillins Allergy (Mild, Verified 11/16/22 14:22) Hives umeclidinium [From Incruse Ellipta] Allergy (Mild, Verified 11/16/22 14:22) Hives EPINEPHRINE Allergy (Mild, Uncoded 07/25/22 15:11) RAPID HEARTBEAT HPI Nutrition Presentation Details LSG 08/03/22 preop weight (07/27/22) 210# weight at 1 MO PO 180# weight on 10/12 173# last weight 174# currnet weight 173 Reason for consult elevated BMI Diet Assmnt Details Patient is almost 4 months postop LSG and regaining weight. Needs help planning meals. B: protein shake 2 scoops Coffee 11am 2-3pm swedish yogurt with fruit or protein bar dinner: 8oz of protein and veg total taking MVI Exercise routine includes: Pulled a muscle in groin last week. was told by her MD to stop walking Prior, was up to 7 miles every morning Dietary counseling reduction Diagnosis Nutrition problem #1 overweight/obesity As related to (etiology) #1 excess energy intake and physical inactivity As evidenced by (sign/symptom) #1 high BMI Monitoring/Goals Nutrition problem monitoring total energy intake, level of knowledge/skill, total PRO intake, total CHO intake and weight Outcome progress progressing Learning/Education Readiness to learn excellent Stages of change action Educational materials provided Yes Most Recent Diabetes Results: No Data to Display PFSH Medical History Asthma Diabetes Dry eyes Eczema GERD (gastroesophageal reflux disease) Hiatal hernia HTN (hypertension) Obesity Osteoarthritis Surgical History Hx of appendectomy Hx of cholecystectomy Hx of colonoscopy Hx of tonsillectomy Hx of unilateral oophorectomy Hx of unilateral salpingectomy Family History Mother No problems noted. Father No problems noted. Brother Diabetes Brother Diabetes Brother Cancer Heart disease Social History Are you a primary college and career counselor to a significant other at home: No Do you presently have visiting nurse or other home services: No Alcohol intake: never Patient Tobacco Use Status: Former Tobacco user Quit Date: 25 yrs ago Tobacco use type: Cigarette Second Hand Smoke Exposure: No service: No Current occupational status: retired Assessment & Plan Assessment & Plan (1) Overweight: Code(s): E66.3 - Overweight Patient Instructions: protein goal 75g Breakfast: 2 scoops Orgain in 8oz fairlife milk = 35g protein lunch 3oz protein , 2oz vegetables - convenient options also such as bars , cottage cheese, yogurt dinner 3oz protein, 2oz veg went over food rules for post op. F/u 12/21 at 2:30pm Coding Level of Care Code Nutr Indiv Subseq (23237) Diagnoses Overweight E66.3 Time Spent (min) 30
== END 2022-11-25 15:59 | disposition home or self-care (01) ==
PROVIDERS: PCP Family Medicine; Visit Provider Dietitian, Registered
DX: E66.3 Overweight (principal)

== ENCOUNTER → 2022-11-25 14:44 | Outpatient (BNVA) | payer MEDICARE, SELFPAY | PROVIDERS: PCP Family Medicine; Visit Provider Dietitian, Registered | DX: E66.3 Overweight (principal); E11.9 Type 2 diabetes mellitus without complications; Z98.84 Bariatric surgery status; Z71.3 Dietary counseling and surveillance | CPT/HCPCS: 97803 ==

== ENCOUNTER 2022-12-21 14:12 | Outpatient (AMB) | payer MEDICARE, SELFPAY ==
--- NOTE | 2022-12-21 14:34 | MHC.AMNUTRGE ---
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 Allergies azithromycin Allergy (Mild, Verified 11/16/22 14:22) Hives cyclosporine Allergy (Mild, Verified 11/16/22 14:22) Hives iodine Allergy (Mild, Verified 11/16/22 14:22) Anaphylaxis Latex, Natural Rubber Allergy (Mild, Verified 11/16/22 14:22) Anaphylaxis morphine Allergy (Mild, Verified 11/16/22 14:22) Headache Penicillins Allergy (Mild, Verified 11/16/22 14:22) Hives umeclidinium [From Incruse Ellipta] Allergy (Mild, Verified 11/16/22 14:22) Hives EPINEPHRINE Allergy (Mild, Uncoded 07/25/22 15:11) RAPID HEARTBEAT HPI Nutrition Presentation [place] [facility] [place] pre[place] weight (07/27/22) 210# weight at 1 MO PO 180# weight on 10/12 173# last weight 174# currnet weight 173 Reason for consult elevated BMI Diet Assmnt Details Patient states, after I met with you I did excellent and made may realize I needed to meal prep she went home and prepared several weeks of meals to freeze. Reports she did excellent for 2 weeks, and then struggled with constipation, got discouraged and gave up . I need help B: protein shake 2 scoops premier with fairlife milk 8oz = 43g protein lunch yogurt or cottage cheese 2oz carrots, 3oz protein - used her food scale She is taking mag citrate pills , she reports she also saw her primary care doctor who wants her to begin taking Slow dissolving magnesium pills in addition. She also takes 3 stool softeners in the morning, 3 at night Exercise: Previous appointment she had an injury was told by her MD to stop walking. She was doing 7 miles at point. She has been medically cleared by her doctor to resume walking, and she is very happy about this progress. Dietary counseling reduction Diagnosis Nutrition problem #1 overweight/obesity As related to (etiology) #1 excess energy intake and physical inactivity As evidenced by (sign/symptom) #1 high BMI Monitoring/Goals Nutrition problem monitoring total energy intake, level of knowledge/skill, total PRO intake, total CHO intake and weight Outcome progress progressing Learning/Education Readiness to learn excellent Stages of change action Educational materials provided Yes Most Recent Diabetes Results: No Data to Display [facility] Medical History Asthma Diabetes Dry eyes Eczema GERD (gastroesophageal reflux disease) Hiatal hernia HTN (hypertension) Obesity Osteoarthritis Surgical History Hx of appendectomy Hx of cholecystectomy Hx of colonoscopy Hx of tonsillectomy Hx of unilateral oophorectomy Hx of unilateral salpingectomy Family History Mother No problems noted. Father No problems noted. Brother Diabetes Brother Diabetes Brother Cancer Heart disease Social History Are you a primary career and technology education teacher to a significant other at home: No Do you presently have visiting nurse or other home services: No Alcohol intake: never Patient Tobacco Use Status: Former Tobacco user Quit Date: 25 yrs ago Tobacco use type: Cigarette Second Hand Smoke Exposure: No service: No Current occupational status: retired Assessment & Plan Assessment & Plan (1) Overweight: Code(s): E66.3 - Overweight Patient Instructions: Does very well when she prepares and plans meals ahead of time and has structure. She will resume this . Breakfast: protein shake 2 scoops premier in 8oz fairlife milk Lunch: yogurt and fruit, or cottage cheese or a meal protein and veg - go back to using food food scale dinner protein and veg She will follow-up with me in 1 month Coding Level of Care Code Nutr Indiv Subseq ([id number]) Diagnoses Overweight E66.3 Time Spent (min) 30
[2022-12-22 10:04] VITALS: BMI 29.2
== END 2022-12-21 15:14 | disposition home or self-care (01) ==
PROVIDERS: PCP Family Medicine; Visit Provider Dietitian, Registered
DX: E66.3 Overweight (principal)

== ENCOUNTER → 2022-12-21 14:12 | Outpatient (BNVA) | payer MEDICARE, SELFPAY | PROVIDERS: PCP Family Medicine; Visit Provider Dietitian, Registered | DX: E66.3 Overweight (principal); Z68.29 Body mass index [BMI] 29.0-29.9, adult | CPT/HCPCS: 97803 ==

== ENCOUNTER → 2023-01-18 09:19 | Outpatient (BNVA) | payer MEDICARE, SELFPAY | PROVIDERS: PCP Family Medicine; Visit Provider Dietitian, Registered | DX: E66.9 Obesity, unspecified (principal) | CPT/HCPCS: 97803 ==

== ENCOUNTER → 2023-02-14 10:18 | Outpatient (BNVA) | payer MEDICARE, SELFPAY | PROVIDERS: PCP Family Medicine; Visit Provider Physician Assistant Surgical ==

== ENCOUNTER 2023-02-16 06:43 | Outpatient (REF) | payer MEDICARE, SELFPAY ==
[2023-02-16 06:59] LABS: MANUAL DIFF FLAG NO
[2023-02-16 07:41] LABS: Basophils Percent Auto 0.6 % (0-2); Eosinophils Absolute Auto 0.1 X10*3/uL (0.0-0.4); Eosinophils Percent Auto 1.8 % (0-4); Hematocrit 41.6 % (37.0-47.0); Hemoglobin 13.6 g/dl (12.0-16.0); Imm Gran Abs Auto 0.02 X10*3/uL (0.00-0.03); Imm Gran Pct Auto 0.3 % (0.0-0.4); Lymphocytes Absolute Auto 2.8 X10*3/uL (1.2-4.9); Lymphocytes Percent Auto 41.3 % (20-40); Mean Corpuscular HGB Conc 32.7 g/dl (31.0-35.0); Mean Corpuscular Hemoglobin 29.7 pg (27.0-33.0); Mean Corpuscular Volume 90.8 fL (80.0-98.0); Mean Platelet Volume 10.3 fL (9.4-12.3); Monocytes Absolute Auto 0.4 X10*3/uL (0.1-1.2); Monocytes Percent Auto 6.6 % (2-11); Neutrophils Absolute Auto 3.3 x10*3/uL (2.0-8.3); Neutrophils Percent Auto 49.4 % (45-73); Platelet Count 309 X10*3/uL (160-400); Red Blood Count 4.58 X10*6/uL (4.20-5.50); Red Cell Distribution Width 13.4 % (11.0-16.0); White Blood Count 6.7 X10*3/uL (4.8-10.8)
[2023-02-16 08:09] LABS: Alanine Aminotransferase 26 U/L (0-31); Albumin Level 4.3 g/dL (3.5-5.0); Alkaline Phosphatase 75 U/L (39-117); Anion Gap 13 (12-20); Aspartate Amino Transferase 18 U/L (5-31); Bilirubin Total 0.5 mg/dL (0.0-1.0); Blood Urea Nitrogen 20 mg/dL (9-16); C Reactive Protein < 0.10 mg/dL (< or = 0.50); Calcium 10.6 mg/dL (8.4-10.2); Carbon Dioxide 31 mmol/L (22-29); Chloride 103 mmol/L (96-108); Cholesterol 163 mg/dL (<200); Estimated Glomerular Filt Rate > 60; Glucose Random 143 mg/dL (60-115); HDL Cholesterol 51 mg/dL (>40); Iron 107 mcg/dL (30-160); LDL Cholesterol Calculated 83 mg/dL (<100); Percent Iron Saturation 38 % (15-50); Potassium 4.2 mmol/L (3.3-5.1); Sodium 141 mmol/L (135-145); Total Iron Binding Capacity 283 mcg/dL (228-428); Total Protein 6.9 g/dL (6.5-8.0); Triglycerides 145 mg/dL (<150); Unsaturated Iron Binding 176 ug/dL
[2023-02-16 08:30] LABS: TSH reflex Free T4 1.12 uIU/mL (0.32-4.0); Vitamin D 25-OH Total 52.4 ng/mL (>30)
[2023-02-16 08:37] LABS: Folate 15.5 ng/mL (> or = 4.0); Vitamin B12 637 pg/mL (200-900)
[2023-02-16 08:39] LABS: Estimated Average Glucose 128 mg/dL; Hemoglobin A1C 148.9879 umol/L; Hemoglobin A1c % 6.1 % (<6.0)
[2023-02-16 08:40] LABS: Ferritin 115 ng/mL (10-250); Insulin 5 uU/mL (2-29)
[2023-02-17 15:13] LABS: Calcium (PTHI) 10.4 mg/dL (8.6-10.4); PTHI 55 pg/mL (16-77)
[2023-02-21 00:48] LABS: Zinc 106 mcg/dL (60-130)
[2023-02-21 17:57] LABS: Vitamin A 83 mcg/dL (38-98)
[2023-02-23 08:54] LABS: Vitamin B1 19 nmol/L (8-30)
== END 2023-02-16 06:44 | disposition home or self-care (01) ==
LOC: HO.LAB 06:43
PROVIDERS: PCP Family Medicine; Visit Provider Physician Assistant Surgical
DX: Z98.84 Bariatric surgery status (principal)
CPT/HCPCS: 36415; 80053; 80061; 82306; 82607; 82728; 82746; 83036; 83525; 83540; 83970; 84425; 84443; 84590; 84630; 85025; 86140

== ENCOUNTER 2023-03-01 11:22 | Outpatient (AMB) | payer MEDICARE, SELFPAY ==
--- NOTE | 2023-03-01 11:37 | A.OFFVIS_ITS ---
Intake VS Expanded 03/01/23 11:49 Height 5 ft 4.5 in Weight 161 lb BMI 27.2 Intake Visit Reasons: (OV) PO LSG 08/03/22 Allergies azithromycin Allergy (Mild, Verified 02/14/23 10:23) Hives cyclosporine Allergy (Mild, Verified 02/14/23 10:23) Hives iodine Allergy (Mild, Verified 02/14/23 10:23) Anaphylaxis Latex, Natural Rubber Allergy (Mild, Verified 02/14/23 10:23) Anaphylaxis morphine Allergy (Mild, Verified 02/14/23 10:23) Headache Penicillins Allergy (Mild, Verified 02/14/23 10:23) Hives umeclidinium [From Incruse Ellipta] Allergy (Mild, Verified 02/14/23 10:23) Hives EPINEPHRINE Allergy (Mild, Uncoded 02/14/23 10:23) RAPID HEARTBEAT HPI Nutrition Presentation Details [facility] 08/03/22 preop weight (07/27/22) 210# weight at 1 MO PO 180# weight at 9 wks PO 173# weight at 5.5 MO PO 165 current 161# Reason for consult elevated BMI Diet Assmnt Details Breakfast- 1 scoop orgain powder with regular milk - her preference Lunch- 1/2 scoop pro and 1/2 scoop PB Orgain in 8oz Fairlife Dinner- 3oz protein, 2oz veg apple after dinner pt just saw yeni 2 weeks ago. was supposed to be scheduled with me in 1-2 months but todays appt was made in error. Pt feels she is doing well, has no questionsor concerns today Dietary counseling reduction Diagnosis Nutrition problem #1 overweight/obesity As related to (etiology) #1 excess energy intake and physical inactivity As evidenced by (sign/symptom) #1 high BMI Monitoring/Goals Nutrition problem monitoring total energy intake, level of knowledge/skill, total PRO intake, total CHO intake and weight Outcome progress progressing Learning/Education Readiness to learn excellent Stages of change action Educational materials provided Yes Most Recent Diabetes Results: Cholesterol 163 mg/dL (<200) 02/16/23 HDL Cholesterol 51 mg/dL (>40) 02/16/23 Triglycerides 145 mg/dL (<150) 02/16/23 Creatinine 0.78 mg/dL (0.5-1.4) 02/16/23 Blood Urea Nitrogen 20 mg/dL (9-16) H 02/16/23 Sodium 141 mmol/L (135-145) 02/16/23 Potassium 4.2 mmol/L (3.3-5.1) 02/16/23 Chloride 103 mmol/L (96-108) 02/16/23 Carbon Dioxide 31 mmol/L (22-29) H 02/16/23 Calcium 10.6 mg/dL (8.4-10.2) H 02/16/23 AST 18 U/L (5-31) 02/16/23 ALT 26 U/L (0-31) 02/16/23 Total Protein 6.9 g/dL (6.5-8.0) 02/16/23 Albumin 4.3 g/dL (3.5-5.0) 02/16/23 [facility] Medical History Asthma Diabetes Dry eyes Eczema GERD (gastroesophageal reflux disease) Hiatal hernia HTN (hypertension) Obesity Osteoarthritis Surgical History Hx of colonoscopy Hx of cholecystectomy Hx of unilateral salpingectomy Hx of unilateral oophorectomy Hx of tonsillectomy Hx of appendectomy Family History Mother No problems noted. Father No problems noted. Brother Diabetes Brother Diabetes Brother Cancer Heart disease Social History Are you a primary home health caregiver to a significant other at home: No Do you presently have visiting nurse or other home services: No Alcohol intake: never Patient Tobacco Use Status: Former Tobacco user Quit Date: 25 yrs ago Tobacco use type: Cigarette Second Hand Smoke Exposure: No service: No Current occupational status: retired Assessment & Plan Assessment & Plan (1) Overweight: Code(s): E66.3 - Overweight Plan doing well. no changes made. she will call office and schedule a f/u in 1-2 months [facility] and encouraged communication as needed in the meantime Patient Instructions: doing well. no changes made. she will call office and schedule a f/u in 1-2 months [facility] and encouraged communication as needed in the meantime Coding Level of Care Code Nutr Indiv Subseq ([id number]) Diagnoses Overweight E66.3 Time Spent (min) 20
[2023-03-01 11:49] VITALS: BMI 27.2
== END 2023-03-01 11:49 | disposition home or self-care (01) ==
PROVIDERS: PCP Family Medicine; Visit Provider Dietitian, Registered
DX: E66.3 Overweight (principal)

== ENCOUNTER → 2023-03-01 11:22 | Outpatient (BNVA) | payer MEDICARE, SELFPAY | PROVIDERS: PCP Family Medicine; Visit Provider Dietitian, Registered | DX: E66.3 Overweight (principal); Z68.27 Body mass index [BMI] 27.0-27.9, adult; Z98.84 Bariatric surgery status | CPT/HCPCS: 97803 ==

== ENCOUNTER 2023-06-05 09:57 | Outpatient (AMB) | payer MEDICARE, SELFPAY ==
--- NOTE | 2023-06-05 10:07 | A.OFFVIS_ITS ---
Intake VS Expanded 06/05/23 10:19 Height 5 ft 4.5 in Weight 155 lb BMI 26.2 Intake Visit Reasons: OV) PO LSG 08/03/22 Allergies azithromycin Allergy (Mild, Verified 02/14/23 10:23) Hives cyclosporine Allergy (Mild, Verified 02/14/23 10:23) Hives iodine Allergy (Mild, Verified 02/14/23 10:23) Anaphylaxis Latex, Natural Rubber Allergy (Mild, Verified 02/14/23 10:23) Anaphylaxis morphine Allergy (Mild, Verified 02/14/23 10:23) Headache Penicillins Allergy (Mild, Verified 02/14/23 10:23) Hives umeclidinium [From Incruse Ellipta] Allergy (Mild, Verified 02/14/23 10:23) Hives EPINEPHRINE Allergy (Mild, Uncoded 02/14/23 10:23) RAPID HEARTBEAT HPI Nutrition Presentation Details [facility] 08/03/22 preop weight (07/27/22) 210# weight at 1 MO PO 180# weight at 9 wks PO 173# weight at 5.5 MO PO 165 weight in Feb 2023 161# current weight at 10 MO PO 155# Reason for consult elevated BMI Diet Assmnt Details Pt has been talking with Dr. Restrepo who switched her to the below plan: 3 shakes 1/2 scoop orgain with almond mi lk 2 protein bars - 12g protein-16 g protei n 6 forks protein and 6 forks vegetables struggles with emotional eating, sitting in front of the TV, feels strong urge for food specific item. Exercise: reports she was told to do 4.2mph at an incline of 15, does this for over an hour. Has a lot of energy and lvoes it. She is interested in skin removal surgery. at a BMI of 26 now which is healthy for her age Dietary counseling reduction Diagnosis Nutrition problem #1 overweight/obesity As related to (etiology) #1 excess energy intake and physical inactivity As evidenced by (sign/symptom) #1 high BMI Monitoring/Goals Nutrition problem monitoring total energy intake, level of knowledge/skill, total PRO intake, total CHO intake and weight Most Recent Diabetes Results: Cholesterol 163 mg/dL (<200) 02/16/23 HDL Cholesterol 51 mg/dL (>40) 02/16/23 Triglycerides 145 mg/dL (<150) 02/16/23 Creatinine 0.78 mg/dL (0.5-1.4) 02/16/23 Blood Urea Nitrogen 20 mg/dL (9-16) H 02/16/23 Sodium 141 mmol/L (135-145) 02/16/23 Potassium 4.2 mmol/L (3.3-5.1) 02/16/23 Chloride 103 mmol/L (96-108) 02/16/23 Carbon Dioxide 31 mmol/L (22-29) H 02/16/23 Calcium 10.6 mg/dL (8.4-10.2) H 02/16/23 AST 18 U/L (5-31) 02/16/23 ALT 26 U/L (0-31) 02/16/23 Total Protein 6.9 g/dL (6.5-8.0) 02/16/23 Albumin 4.3 g/dL (3.5-5.0) 02/16/23 [facility] Medical History Asthma Diabetes Dry eyes Eczema GERD (gastroesophageal reflux disease) Hiatal hernia HTN (hypertension) Obesity Osteoarthritis Surgical History Hx of colonoscopy Hx of cholecystectomy Hx of unilateral salpingectomy Hx of unilateral oophorectomy Hx of tonsillectomy Hx of appendectomy Family History Mother No problems noted. Father No problems noted. Brother Diabetes Brother Diabetes Brother Cancer Heart disease Social History Are you a primary client care specialist to a significant other at home: No Do you presently have visiting nurse or other home services: No Alcohol intake: never Patient Tobacco Use Status: Former Tobacco user Quit Date: 25 yrs ago Tobacco use type: Cigarette Second Hand Smoke Exposure: No service: No Current occupational status: retired Assessment & Plan Assessment & Plan (1) Overweight (BMI 25.0-29.9): Code(s): E66.3 - Overweight Plan Did not change anything today, but I recommend more protein. is only getting about 60g per day and her level of exercise is advanced. She has been texting her surgeon every week, I encouraged she discuss changes next time she communicates. I also strongly recommend replacing some cardio time with weight training. She has a [employer] fitness membership, is receptive to beginning with a care trainer. She will f/u with Ayo BAILEY Coding Level of Care Code Nutr Indiv Subseq (07173) Diagnoses Overweight (BMI 25.0-29.9) E66.3 Time Spent (min) 30
[2023-06-05 10:19] VITALS: BMI 26.2
== END 2023-06-05 10:56 | disposition home or self-care (01) ==
PROVIDERS: PCP Family Medicine; Visit Provider Dietitian, Registered
DX: E66.3 Overweight (principal)

== ENCOUNTER → 2023-06-05 09:57 | Outpatient (BNVA) | payer MEDICARE, SELFPAY | PROVIDERS: PCP Family Medicine; Visit Provider Dietitian, Registered | DX: E66.3 Overweight (principal); Z68.26 Body mass index [BMI] 26.0-26.9, adult | CPT/HCPCS: 97803 ==

== ENCOUNTER 2023-07-31 13:46 | Outpatient (AMB) | payer MEDICARE, SELFPAY ==
--- NOTE | 2023-07-31 13:49 | A.OFFVIS_ITS ---
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 Allergies azithromycin Allergy (Mild, Verified 07/31/23 14:08) Hives cyclosporine Allergy (Mild, Verified 07/31/23 14:08) Hives iodine Allergy (Mild, Verified 07/31/23 14:08) Anaphylaxis Latex, Natural Rubber Allergy (Mild, Verified 07/31/23 14:08) Anaphylaxis morphine Allergy (Mild, Verified 07/31/23 14:08) Headache Penicillins Allergy (Mild, Verified 07/31/23 14:08) Hives umeclidinium [From Incruse Ellipta] Allergy (Mild, Verified 07/31/23 14:08) Hives EPINEPHRINE Allergy (Mild, Uncoded 07/31/23 14:08) RAPID HEARTBEAT Medication List - Last Reviewed 07/31/23 by Meena Bain, STUDENT SUPPORT COUNSELOR albuterol sulfate 90 mcg/actuation 2 inhalations inhalation Q4-6H PRN albuterol sulfate 2.5 mg inhalation BID PRN albuterol sulfate 90 mcg/actuation inhalation amlodipine 5 mg PO DAILY amlodipine 5 mg PO DAILY atorvastatin (Lipitor) 40 mg PO QPM atorvastatin (Lipitor) 40 mg PO QPM blood sugar diagnostic (FreeStyle Lite Strips) As directed cetirizine (Zyrtec) 10 mg PO DAILY PRN chlorthalidone 25 mg PO DAILY clotrimazole 1% 1 appl topical BID desoximetasone 0.25% 1 appl topical DAILY PRN econazole 1% 1 appl topical DAILY epinephrine (EpiPen) 0.3 mg IM Q4H PRN fluocinonide 0.05% 1 appl topical BID-QID PRN fluticasone propion-salmeterol 250-50 mcg/dose (Advair Diskus) 1 inh inhalation BID fluticasone propionate 110 mcg/actuation (Flovent HFA) 1 puff inhalation BID hydroxyzine HCl 25 mg PO BEDTIME losartan 100 mg PO DAILY trazodone 100 mg PO BEDTIME PRN triamcinolone acetonide 0.1% 1 appl topical BID-TID zinc gluconate 50 mg PO DAILY HPI Comments Details: This?a?77?yo female who is s/p LSG without hiatal hernia repair on?08/03/[address] White. Presents for 1 year post op visit. Weight today is 154.8 pounds, with a BMI of 26.2. There has been a 80.6 pound weight loss,(initial weight 235.4 pounds) since starting the program on 05/02/2022 reflecting a 34.2 % total body weight loss and a weight loss of 55.2 pounds since surgery (operative weight 210 pounds) reflecting a 26.2 % TBWL since surgery. No complaints of nausea, emesis, abdominal pain or reflux. Reports infrequent but normal bowel movements every 1-2 days and uses stool softeners regularly. Patient states that she is having difficulty with excess skin of the abdomen and suprapubic area. She reports a rash to that area that improves with the use of topical clotrimazole cream although recurs. She has had a recurrence of it approximately 3 times this past winter, with the upcoming warmer months, this increases the frequency of her rash. We will continue to monitor it closely. She will continue to use the clotrimazole cream as she is able. Additionally, during the warmer months, she has to maintain adequate hygiene by increasing washing and showering. When the rash occurs it causes significant discomfort and pain as well it is quite itchy. She additionally reports significant odor with the rash. Present meal plan includes: Premier protein powder half scoop in 8 oz unsweetened almond milk Protein bar 12-16 gm protein unjury protein powder half scoop with frozen blueberries and strawberries Protein bar Meal 6 forks of protein, 8 forks veg ? Exercise routine includes: elliptical 7 days per week, 35 min, 320 rogerio weights Any post op complications: None RUEL: never DM: resolved HTN: improved Hyperlipidemia: improved GERD:?0-5 scale ??0 = no symptoms ??1 = symptoms noticeable but not bothersome 2 =symptoms bothersome but not daily ? 3 = symptoms bothersome and daily 4 = symptoms affect daily activities 5 = symptoms are incapacitating, unable to do daily activities ? How bad is the heartburn: 0 ? Heartburn while lying down: 0 ? Heartburn when standing up: 0 ? Heartburn after meals: 0 ? Does heartburn change your diet: 0 ? Does heartburn wake you up from sleep: 0 ? Do you have difficulty swallowin ? Do you have pain with swallowin ? If you take medicine for your reflux, does this affect your daily life: 0 Satisfaction with present condition - satisfied or not satisfied: satisfied [facility] Medical History Hiatal hernia GERD (gastroesophageal reflux disease) Dry eyes Osteoarthritis Eczema Diabetes Asthma HTN (hypertension) Obesity Surgical History Hx of colonoscopy Hx of cholecystectomy Hx of unilateral salpingectomy Hx of unilateral oophorectomy Hx of tonsillectomy Hx of appendectomy Family History Mother No problems noted. Father No problems noted. Brother Diabetes Brother Diabetes Brother Cancer Heart disease Social History Are you a primary healthcare architect to a significant other at home: No Do you presently have visiting nurse or other home services: No Alcohol intake: never Patient Tobacco Use Status: Former Tobacco user Quit Date: 25 yrs ago Tobacco use type: Cigarette Second Hand Smoke Exposure: No service: No Current occupational status: retired Physical Exam Const General: cooperative and no acute distress Orientation/consciousness: patient oriented x3 Resp Effort & Inspection: normal respiratory effort Auscultation: clear to auscultation bilaterally Cardio Rate: regular rate Rhythm: regular rhythm GI Inspection: Yes normal to inspection and Yes incision (well healed) Palpation (GI): Soft to palpation and no masses Skin Other: grade 3 pannus of abdomen with no active rash Neuro General: patient oriented x3 Assessment & Plan Assessment & Plan (1) Status post repair of paraesophageal diaphragmatic hernia: Code(s): Z98.890 - Other specified postprocedural states; Z87.19 - Personal history of other diseases of the digestive system Category: Surgical Plan: Continue current meal plan. Continue exercise plan. She has been encouraged to text me with any questions or concerns. We will check 1 year postop labs and have her follow-up in approximately 6 weeks. (2) Excess skin: Code(s): L98.7 - Excessive and redundant skin and subcutaneous tissue Category: Medical Plan: Patient has had recurrence of rash, amenable to treatment with antifungals. We will continue to monitor closely. Consideration for medically necessary skin removal surgery at 18 months postoperatively. She will text with any worsening frequency. Orders: Orders Hemoglobin A1c Today E11.9 - Type 2 diabetes mellitus without complications, E66.3 - Overweight, E78.00 - Pure hypercholesterolemia, unspecified, I10 - Essential (primary) hypertension, Z87.19 - Personal history of other diseases of the digestive system, Z98.890 - Other specified postprocedural states Vitamin B12 and Folate Today E11.9 - Type 2 diabetes mellitus without complications, E66.3 - Overweight, E78.00 - Pure hypercholesterolemia, unspecified, I10 - Essential (primary) hypertension, Z87.19 - Personal history of other diseases of the digestive system, Z98.890 - Other specified postprocedural states Zinc Today E11.9 - Type 2 diabetes mellitus without complications, E66.3 - Overweight, E78.00 - Pure hypercholesterolemia, unspecified, I10 - Essential (primary) hypertension, Z87.19 - Personal history of other diseases of the digestive system, Z98.890 - Other specified postprocedural states C Reactive Protein Today E11.9 - Type 2 diabetes mellitus without c omplications, E66.3 - Overweight, E78.00 - Pure hypercholesterolemia, unspecified, I10 - Essential (primary) hypertension, Z87.19 - Personal history of other diseases of the digestive system, Z98.890 - Other specified postprocedural states Vitamin B1 Today E11.9 - Type 2 diabetes mellitus without complications, E66.3 - Overweight, E78.00 - Pure hypercholesterolemia, unspecified, I10 - Essential (primary) hypertension, Z87.19 - Personal history of other diseases of the digestive system, Z98.890 - Other specified postprocedural states TSH reflex Free T4 Today E11.9 - Type 2 diabetes mellitus without complications, E66.3 - Overweight, E78.00 - Pure hypercholesterolemia, unspecified, I10 - Essential (primary) hypertension, Z87.19 - Personal history of other diseases of the digestive system, Z98.890 - Other specified postprocedural states Ferritin Today E11.9 - Type 2 diabetes mellitus without complications, E66.3 - Overweight, E78.00 - Pure hypercholesterolemia, unspecified, I10 - Essential (primary) hypertension, Z87.19 - Personal history of other diseases of the digestive system, Z98.890 - Other specified postprocedural states Vitamin D 25-OH Total Today E11.9 - Type 2 diabetes mellitus without complications, E66.3 - Overweight, E78.00 - Pure hypercholesterolemia, unspecifi ed, I10 - Essential (primary) hypertension, Z87.19 - Personal history of other diseases of the digestive system, Z98.890 - Other specified postprocedural states Insulin Today E11.9 - Type 2 diabetes mellitus without complications, E66.3 - Overweight, E78.00 - Pure hypercholesterolemia, unspecified, I10 - Essential (primary) hypertension, Z87.19 - Personal history of other diseases of the digestive system, Z98.890 - Other specified postprocedural states Complete Blood Count Auto Diff Today E11.9 - Type 2 diabetes mellitus without complications, E66.3 - Overweight, E78.00 - Pure hypercholesterolemia, unspecified, I10 - Essential (primary) hypertension, Z87.19 - Personal history of other diseases of the digestive system, Z98.890 - Other specified postprocedural states Lipid Panel Today E11.9 - Type 2 diabetes mellitus without complications, E66.3 - Overweight, E78.00 - Pure hypercholesterolemia, unspecified, I10 - Essential (primary) hypertension, Z87.19 - Personal history of other diseases of the digestive system, Z98.890 - Other specified postprocedural states IRON PROFILE Today E11.9 - Type 2 diabetes mellitus without complications, E66.3 - Overweight, E78.00 - Pure hypercholesterolemia, unspecified, I10 - Essential (primary) hypertension, Z87.19 - Personal history of other diseases of the digestive system, Z98.890 - Other specified postprocedural states Vitamin A Today E11.9 - Type 2 diabetes mellitus without complications, E66.3 - Overweight, E78.00 - Pure hypercholesterolemia, unspecified, I10 - Essential (primary) hypertension, Z87.19 - Personal history of other diseases of the digestive system, Z98.890 - Other specified postprocedural states Basic Metabolic Panel Today E11.9 - Type 2 diabetes mellitus without complications, E66.3 - Overweight, E78.00 - Pure hypercholesterolemia, unspecified, I10 - Essential (primary) hypertension, Z87.19 - Personal history of other diseases of the digestive system, Z98.890 - Other specified postprocedural states
[2023-07-31 13:57] VITALS: BP 137/53; PULSE 57; TEMP 36.1; O2SAT 93; BMI 26.2
== END 2023-07-31 14:25 | disposition home or self-care (01) ==
PROVIDERS: PCP Family Medicine; Visit Provider Physician Assistant Surgical
DX: L98.7 Excessive and redundant skin and subcutaneous tissue (principal); Z87.19 Personal history of other diseases of the digestive system; Z98.890 Other specified postprocedural states
CPT/HCPCS: 99214

== ENCOUNTER → 2023-07-31 13:46 | Outpatient (BNVA) | payer MEDICARE, SELFPAY | PROVIDERS: PCP Family Medicine; Visit Provider Physician Assistant Surgical | DX: L98.7 Excessive and redundant skin and subcutaneous tissue (principal); E11.9 Type 2 diabetes mellitus without complications; E66.3 Overweight; I10 Essential (primary) hypertension; Z48.815 Encounter for surgical aftercare following surgery on the digestive system; Z71.3 Dietary counseling and surveillance; Z98.84 Bariatric surgery status; Z87.19 Personal history of other diseases of the digestive system; Z98.890 Other specified postprocedural states; Z47.89 Encounter for other orthopedic aftercare | CPT/HCPCS: 99212 ==

== ENCOUNTER 2023-08-02 06:03 | Outpatient (REF) | payer MEDICARE, SELFPAY ==
[2023-08-02 06:19] LABS: MANUAL DIFF FLAG NO
[2023-08-02 07:33] LABS: Basophils Percent Auto 0.7 % (0-2); Eosinophils Absolute Auto 0.1 X10*3/uL (0.0-0.4); Hematocrit 41.9 % (37.0-47.0); Hemoglobin 13.8 g/dl (12.0-16.0); Imm Gran Abs Auto 0.01 X10*3/uL (0.00-0.03); Imm Gran Pct Auto 0.2 % (0.0-0.4); Lymphocytes Absolute Auto 2.8 X10*3/uL (1.2-4.9); Lymphocytes Percent Auto 47.8 % (20-40); Mean Corpuscular HGB Conc 32.9 g/dl (31.0-35.0); Mean Corpuscular Hemoglobin 29.2 pg (27.0-33.0); Mean Corpuscular Volume 88.6 fL (80.0-98.0); Mean Platelet Volume 10.3 fL (9.4-12.3); Monocytes Absolute Auto 0.5 X10*3/uL (0.1-1.2); Monocytes Percent Auto 7.8 % (2-11); Neutrophils Absolute Auto 2.4 x10*3/uL (2.0-8.3); Neutrophils Percent Auto 41.5 % (45-73); Platelet Count 255 X10*3/uL (160-400); Red Blood Count 4.73 X10*6/uL (4.20-5.50); Red Cell Distribution Width 13.6 % (11.0-16.0); White Blood Count 5.9 X10*3/uL (4.8-10.8)
[2023-08-02 07:43] LABS: Estimated Average Glucose 120 mg/dL; Hemoglobin A1c % 5.8 % (<6.0)
[2023-08-02 08:09] LABS: Anion Gap 14 (12-20); Blood Urea Nitrogen 20 mg/dL (9-16); C Reactive Protein < 0.04 mg/dL (< or = 0.50); Calcium 10.3 mg/dL (8.4-10.2); Carbon Dioxide 28 mmol/L (22-29); Chloride 103 mmol/L (96-108); Cholesterol 158 mg/dL (<200); Estimated Glomerular Filt Rate > 60; Glucose Random 121 mg/dL (60-115); HDL Cholesterol 61 mg/dL (>40); Iron 111 mcg/dL (30-160); LDL Cholesterol Calculated 76 mg/dL (<100); Percent Iron Saturation 38 % (15-50); Potassium 4.2 mmol/L (3.3-5.1); Sodium 141 mmol/L (135-145); Total Iron Binding Capacity 296 mcg/dL (228-428); Triglycerides 105 mg/dL (<150); Unsaturated Iron Binding 185 ug/dL
[2023-08-02 08:21] LABS: Ferritin 88 ng/mL (10-250); Insulin 5 uU/mL (2-29); TSH reflex Free T4 0.91 uIU/mL (0.32-4.0); Vitamin D 25-OH Total 51.2 ng/mL (>30)
[2023-08-02 08:32] LABS: Folate 13.2 ng/mL (> or = 4.0); Vitamin B12 699 pg/mL (200-900)
[2023-08-05 00:24] LABS: Zinc 124 mcg/dL (60-130)
[2023-08-07 15:48] LABS: Vitamin A 73 mcg/dL (38-98)
[2023-08-09 15:13] LABS: Vitamin B1 16 nmol/L (8-30)
== END 2023-08-02 06:04 | disposition home or self-care (01) ==
LOC: HO.LAB 06:03
PROVIDERS: PCP Family Medicine; Visit Provider Physician Assistant Surgical
DX: E66.3 Overweight (principal); Z98.890 Other specified postprocedural states; Z87.19 Personal history of other diseases of the digestive system; E11.9 Type 2 diabetes mellitus without complications; I10 Essential (primary) hypertension; E78.00 Pure hypercholesterolemia, unspecified
CPT/HCPCS: 36415; 80048; 80061; 82306; 82607; 82728; 82746; 83036; 83525; 83540; 84425; 84443; 84590; 84630; 85025; 86140

== ENCOUNTER 2023-09-11 13:40 | Outpatient (AMB) | payer MEDICARE, SELFPAY ==
[2023-09-11 12:41] VITALS: BMI 26.7
--- NOTE | 2023-09-11 12:41 | A.OFFVIS_ITS ---
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 Required: No Allergies azithromycin Allergy (Mild, Verified 07/31/23 14:08) Hives cyclosporine Allergy (Mild, Verified 07/31/23 14:08) Hives iodine Allergy (Mild, Verified 07/31/23 14:08) Anaphylaxis Latex, Natural Rubber Allergy (Mild, Verified 07/31/23 14:08) Anaphylaxis morphine Allergy (Mild, Verified 07/31/23 14:08) Headache Penicillins Allergy (Mild, Verified 07/31/23 14:08) Hives umeclidinium [From Incruse Ellipta] Allergy (Mild, Verified 07/31/23 14:08) Hives EPINEPHRINE Allergy (Mild, Uncoded 07/31/23 14:08) RAPID HEARTBEAT Medication List - Last Reconciled 09/11/23 by LYNN Cortes albuterol sulfate 90 mcg/actuation 2 inhalations inhalation Q4-6H PRN albuterol sulfate 2.5 mg inhalation BID PRN albuterol sulfate 90 mcg/actuation inhalation amlodipine 5 mg PO DAILY amlodipine 5 mg PO DAILY atorvastatin (Lipitor) 40 mg PO QPM atorvastatin (Lipitor) 40 mg PO QPM blood sugar diagnostic (FreeStyle Lite Strips) As directed cetirizine (Zyrtec) 10 mg PO DAILY PRN chlorthalidone 25 mg PO DAILY clotrimazole 1% 1 appl topical BID desoximetasone 0.25% 1 appl topical DAILY PRN econazole 1% 1 appl topical DAILY epinephrine (EpiPen) 0.3 mg IM Q4H PRN fluocinonide 0.05% 1 appl topical BID-QID PRN fluticasone propion-salmeterol 250-50 mcg/dose (Advair Diskus) 1 inh inhalation BID fluticasone propionate 110 mcg/actuation (Flovent HFA) 1 puff inhalation BID hydroxyzine HCl 25 mg PO BEDTIME losartan 100 mg PO DAILY trazodone 100 mg PO BEDTIME PRN triamcinolone acetonide 0.1% 1 appl topical BID-TID zinc gluconate 50 mg PO DAILY HPI Comments Details: This?a?77?yo female who is s/p LSG without hiatal hernia repair on?08/03/[address] White. Presents for 1 year 1 month post op visit. Weight today is 158.2 pounds, with a BMI of 26.7. There has been a 77.2 pound weight loss,(initial weight 235.4 pounds) since starting the program on 05/02/2022 reflecting a 32.7 % total body weight loss and a weight loss of 51.8 pounds since surgery (operative weight 210 pounds) reflecting a 24.6 % TBWL since surgery. No complaints of nausea, emesis, abdominal pain or reflux. Reports infrequent but normal bowel movements every 1-2 days and uses stool softeners regularly. Patient states that she is having difficulty with excess skin of the abdomen and suprapubic area. She reports a rash to that area that improves with the use of topical clotrimazole cream although recurs. She has had a recurrence of it approximately 3 times this past winter, with the upcoming warmer months, this increases the frequency of her rash. We will continue to monitor it closely. She will continue to use the clotrimazole cream as she is able. Additionally, during the warmer months, she has to maintain adequate hygiene by increasing washing and showering. When the rash occurs it causes significant discomfort and pain as well it is quite itchy. She additionally reports significant odor with the rash. She states she is doing ok, hip pain form bilateral OA. Present meal plan includes: Premier protein powder 1 scoop in 8 oz unsweetened almond milk, or Orgain 1 scoop in 8 oz unsweetened almond milk or 1/2 scoop of each Protein bar 12-16 gm protein unjury protein powder (21 gm per scoop) 1 scoop with frozen blueberries and strawberries Protein bar Meal 6 forks of protein, 8 forks veg snack on popcorn, watermelon, cantalope, berries Drinking 40-50 oz water daily Exercise routine includes: treadmill and or elliptical 4 days per week 700-1200 calories burned weights 3 days per week [facility] Medical History Hiatal hernia GERD (gastroesophageal reflux disease) Dry eyes Osteoarthritis Eczema Diabetes Asthma HTN (hypertension) Obesity Surgical History Hx of colonoscopy Hx of cholecystectomy Hx of unilateral salpingectomy Hx of unilateral oophorectomy Hx of tonsillectomy Hx of appendectomy Family History Mother No problems noted. Father No problems noted. Brother Diabetes Brother Diabetes Brother Cancer Heart disease Social History Are you a primary hiv/aids care nurse to a significant other at home: No Do you presently have visiting nurse or other home services: No Alcohol intake: never Patient Tobacco Use Status: Former Tobacco user Tobacco use type: Cigarette Second Hand Smoke Exposure: No service: No Current occupational status: retired Telehealth Telehealth Telehealth Platform: Telephone Location of provider rendering services: practice address Location of patient: address on file Patient Identification confirmed using: Name, : Yes Telehealth method: voice only Patient verbally consented to treatment: Yes Patient verbally consented to billing insurance company: Yes Patient informed of any privacy concerns related to visit: Yes Minutes spent on Phone/Video with Pt.: 20 Assessment & Plan Assessment & Plan (1) S/P laparoscopic sleeve gastrectomy: Code(s): Z98.84 - Bariatric surgery status Category: Medical Plan: Overall doing well although change her meal plan. We will adjust to account for her current weight and goal of 155 lb. Premier protein powder 1 scoop in 8 oz unsweetened almond milk, or Orgain 1 scoop in 8 oz unsweetened almond milk or 1/2 scoop of each Protein bar 12-16 gm protein unjury protein powder (21 gm per scoop) 1/2 scoop with frozen blueberries and strawberries Meal 6 forks of protein, 8 forks veg berries after dinner if she wishes Return to the office in 6 weeks.
== END 2023-09-11 13:40 | disposition home or self-care (01) ==
LOC: HO.HBS 13:40
PROVIDERS: PCP Family Medicine; Visit Provider Physician Assistant Surgical
DX: E66.3 Overweight (principal); Z68.26 Body mass index [BMI] 26.0-26.9, adult; Z90.3 Acquired absence of stomach [part of]; Z98.84 Bariatric surgery status
CPT/HCPCS: 99442

== ENCOUNTER → 2023-09-11 13:40 | Outpatient (BNVA) | payer MEDICARE, SELFPAY | PROVIDERS: PCP Family Medicine; Visit Provider Physician Assistant Surgical | DX: E66.3 Overweight (principal); Z98.890 Other specified postprocedural states; Z87.19 Personal history of other diseases of the digestive system; E11.9 Type 2 diabetes mellitus without complications; I10 Essential (primary) hypertension; E78.00 Pure hypercholesterolemia, unspecified; Z98.84 Bariatric surgery status ==

== ENCOUNTER 2023-10-23 15:20 | Outpatient (AMB) | payer MEDICARE, SELFPAY ==
[2023-10-23 12:46] VITALS: BMI 26.1
--- NOTE | 2023-10-23 12:46 | MHC.OFFVISWM ---
VS Expanded 10/23/23 12:46 Height 5 ft 4.5 in Weight 154 lb 9.6 oz BMI 26.1 Intake Visit Reasons: PO LSG 08/03/22 Allergies azithromycin Allergy (Mild, Verified 07/31/23 14:08) Hives cyclosporine Allergy (Mild, Verified 07/31/23 14:08) Hives iodine Allergy (Mild, Verified 07/31/23 14:08) Anaphylaxis Latex, Natural Rubber Allergy (Mild, Verified 07/31/23 14:08) Anaphylaxis morphine Allergy (Mild, Verified 07/31/23 14:08) Headache Penicillins Allergy (Mild, Verified 07/31/23 14:08) Hives umeclidinium [From Incruse Ellipta] Allergy (Mild, Verified 07/31/23 14:08) Hives EPINEPHRINE Allergy (Mild, Uncoded 07/31/23 14:08) RAPID HEARTBEAT HPI Comments Details: This?a?77?yo female who is s/p LSG without hiatal hernia repair on?08/03/[address] White. Presents for 1 year 2 month post op visit. Weight today is 154.6 pounds, with a BMI of 26.1. There has been a 80.8 pound weight loss,(initial weight 235.4 pounds) since starting the program on 05/02/2022 reflecting a 34.3 % total body weight loss and a weight loss of 55.4 pounds since surgery (operative weight 210 pounds) reflecting a 26.3 % TBWL since surgery. No complaints of nausea, emesis, abdominal pain or reflux. Reports infrequent but normal bowel movements every 1-2 days and uses stool softeners regularly. Patient states that she is having difficulty with excess skin of the abdomen and suprapubic area. She reports a rash to that area that improves with the use of topical clotrimazole cream although recurs. She has had a recurrence of it approximately 3 times this past winter, with the upcoming warmer months, this increases the frequency of her rash. We will continue to monitor it closely. She will continue to use the clotrimazole cream as she is able. She reports she has had approx 8 occurrances in the last 3 months. She has to maintain adequate hygiene by increasing washing and showering. When the rash occurs it causes significant discomfort and pain as well it is quite itchy. She additionally reports significant odor with the rash. As well, the rash that she gets significantly impacts her exercise tolerance and endurance due to discomfort. Present meal plan includes: Premier protein powder 1 scoop in 8 oz unsweetened almond milk, or Orgain 1 scoop in 8 oz unsweetened almond milk or 1/2 scoop of each Protein bar 12-16 gm protein unjury protein powder (21 gm per scoop) 1/2 scoop with frozen blueberries and strawberries Meal 6 forks of protein, 8 forks veg Drinking 40-50 oz water daily Exercise routine includes: treadmill and or elliptical 4 days per week 700-1200 calories burned weights 3 days per week [facility] Medical History Hiatal hernia GERD (gastroesophageal reflux disease) Dry eyes Osteoarthritis Eczema Diabetes Asthma HTN (hypertension) Obesity Surgical History Hx of colonoscopy Hx of cholecystectomy Hx of unilateral salpingectomy Hx of unilateral oophorectomy Hx of tonsillectomy Hx of appendectomy Family History Mother No problems noted. Father No problems noted. Brother Diabetes Brother Diabetes Brother Cancer Heart disease Social History Are you a primary home care coordinator to a significant other at home: No Do you presently have visiting nurse or other home services: No Alcohol intake: never Patient Tobacco Use Status: Former Tobacco user Tobacco use type: Cigarette Second Hand Smoke Exposure: No service: No Current occupational status: retired Telehealth Telehealth Telehealth Platform: Telephone Location of provider rendering services: practice address Location of patient: address on file Patient Identification confirmed using: Name, : Yes Telehealth method: voice only Patient verbally consented to treatment: Yes Patient verbally consented to billing insurance company: Yes Patient informed of any privacy concerns related to visit: Yes Minutes spent on Phone/Video with Pt.: 15 Assessment & Plan Assessment & Plan (1) Overweight: Code(s): E66.3 - Overweight Category: Medical Plan: Patient continues to make excellent progress. She is adherent to the meal plan. She is exercising as much as she is able to. She does state that she is having eyelid surgery next month and will not be able to exercise per her eye surgeon. She will discuss with her surgeon what the restrictions are, specifically, so that she perhaps may be able to do some exercise. (2) Excess skin: Code(s): L98.7 - Excessive and redundant skin and subcutaneous tissue Category: Medical Plan: Patient will continue to use p.r.n. clotrimazole. She is documenting the frequency with which she is getting rashes. She will continue to monitor, she will benefit from skin removal surgery as this is now medically necessary given the recurrence of rashes. We will continue to follow clinically
== END 2023-10-23 15:43 | disposition home or self-care (01) ==
LOC: HO.HBS 15:20
PROVIDERS: PCP Family Medicine; Visit Provider Physician Assistant Surgical
DX: E66.3 Overweight (principal); L98.7 Excessive and redundant skin and subcutaneous tissue; Z68.26 Body mass index [BMI] 26.0-26.9, adult
CPT/HCPCS: 99442

== ENCOUNTER → 2023-10-23 15:20 | Outpatient (BNVA) | payer MEDICARE, SELFPAY | PROVIDERS: PCP Family Medicine; Visit Provider Physician Assistant Surgical | DX: E66.3 Overweight (principal); Z98.890 Other specified postprocedural states; Z87.19 Personal history of other diseases of the digestive system; E11.9 Type 2 diabetes mellitus without complications; I10 Essential (primary) hypertension; E78.00 Pure hypercholesterolemia, unspecified; Z98.84 Bariatric surgery status ==

== ENCOUNTER 2024-01-18 14:30 | Outpatient (AMB) | payer MEDICARE, SELFPAY ==
[2024-01-18 14:38] VITALS: BMI 27.7
--- NOTE | 2024-01-18 14:38 | MHC.OFFVISWM ---
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 Allergies azithromycin Allergy (Mild, Verified 07/31/23 14:08) Hives cyclosporine Allergy (Mild, Verified 07/31/23 14:08) Hives iodine Allergy (Mild, Verified 07/31/23 14:08) Anaphylaxis Latex, Natural Rubber Allergy (Mild, Verified 07/31/23 14:08) Anaphylaxis morphine Allergy (Mild, Verified 07/31/23 14:08) Headache Penicillins Allergy (Mild, Verified 07/31/23 14:08) Hives umeclidinium [From Incruse Ellipta] Allergy (Mild, Verified 07/31/23 14:08) Hives EPINEPHRINE Allergy (Mild, Uncoded 07/31/23 14:08) RAPID HEARTBEAT Medication List - Last Reconciled 01/18/24 by LYNN Cortes albuterol sulfate 90 mcg/actuation 2 inhalations inhalation Q4-6H PRN albuterol sulfate 2.5 mg inhalation BID PRN albuterol sulfate 90 mcg/actuation inhalation amlodipine 5 mg PO DAILY amlodipine 5 mg PO DAILY atorvastatin (Lipitor) 40 mg PO QPM atorvastatin (Lipitor) 40 mg PO QPM blood sugar diagnostic (FreeStyle Lite Strips) As directed cetirizine (Zyrtec) 10 mg PO DAILY PRN chlorthalidone 25 mg PO DAILY clotrimazole 1% 1 appl topical BID desoximetasone 0.25% 1 appl topical DAILY PRN econazole 1% 1 appl topical DAILY epinephrine (EpiPen) 0.3 mg IM Q4H PRN fluocinonide 0.05% 1 appl topical BID-QID PRN fluticasone propion-salmeterol 250-50 mcg/dose (Advair Diskus) 1 inh inhalation BID fluticasone propionate 110 mcg/actuation (Flovent HFA) 1 puff inhalation BID hydroxyzine HCl 25 mg PO BEDTIME losartan 100 mg PO DAILY trazodone 100 mg PO BEDTIME PRN triamcinolone acetonide 0.1% 1 appl topical BID-TID zinc gluconate 50 mg PO DAILY HPI Comments Details: This?a?77?yo female who is s/p LSG without hiatal hernia repair on?08/03/[address] White. Presents for 1 year 5 month post op visit. Weight today is 164 pounds, with a BMI of 27.7. There has been a 80.8 pound weight loss,(initial weight 235.4 pounds) since starting the program on 05/02/2022 reflecting a 34.3 % total body weight loss and a weight loss of 55.4 pounds since surgery (operative weight 210 pounds) reflecting a 26.3 % TBWL since surgery. No complaints of nausea, emesis, abdominal pain or reflux. Reports infrequent but normal bowel movements every 1-2 days and uses stool softeners regularly. Patient states that she is having difficulty with excess skin of the abdomen and suprapubic area. She reports a rash to that area that improves with the use of topical clotrimazole cream although recurs. She has had a recurrence of it approximately 3 times this past winter, with the upcoming warmer months, this increases the frequency of her rash. We will continue to monitor it closely. She will continue to use the clotrimazole cream as she is able. She reports she has had approx 22 occurrances since August 03, 2023. She has to maintain adequate hygiene by increasing washing and showering. When the rash occurs it causes significant discomfort and pain as well it is quite itchy. She additionally reports significant odor with the rash. As well, the rash that she gets significantly impacts her exercise tolerance and endurance due to discomfort. She has eyelid surgery and was out of the gym for a few weeks and then when she returned to the gym, she experienced pain in her back when using the treadmill and this worsened to include radiculopathy to her toes. She continued but had trouble walking to her car. She saw her PCP the next day and w/u revealed OA, and spurring at T12-L1, L2-3, L3-4. She had PT today and is seeing a environmental services specialist tomorrow at [facility]. Her PC advised her to restart her stationary bike. She reports she has been using a back brace since surgery. She has been stress eating. She has not been measuring her food. She has been having a 20 g protein bar. She has not been able to exercise. She is weight gain and is willing to return to a more strict and consistent meal plan. Present meal plan includes: Premier protein powder 1 scoop in 8 oz unsweetened almond milk, or Orgain 1 scoop in 8 oz unsweetened almond milk or 1/2 scoop of each Protein bar 20 gm protein unjury protein powder (21 gm per scoop) 1/2 scoop with frozen blueberries and strawberries Meal 6 forks of protein, 8 forks veg Drinking 40-50 oz water daily Exercise routine includes: None since hurting her back several weeks ago [facility] Medical History Hiatal hernia GERD (gastroesophageal reflux disease) Dry eyes Osteoarthritis Eczema Diabetes Asthma HTN (hypertension) Obesity Surgical History Hx of colonoscopy Hx of cholecystectomy Hx of unilateral salpingectomy Hx of unilateral oophorectomy Hx of tonsillectomy Hx of appendectomy Family History Mother No problems noted. Father No problems noted. Brother Diabetes Brother Diabetes Brother Cancer Heart disease Social History Are you a primary healthcare social worker to a significant other at home: No Do you presently have visiting nurse or other home services: No Alcohol intake: never Patient Tobacco Use Status: Former Tobacco user Tobacco use type: Cigarette Second Hand Smoke Exposure: No service: No Current occupational status: retired Telehealth Telehealth Telehealth Platform: Telephone Location of provider rendering services: practice address Location of patient: address on file Patient Identification confirmed using: Name, : Yes Telehealth method: voice only Patient verbally consented to treatment: Yes Patient verbally consented to billing insurance company: Yes Patient informed of any privacy concerns related to visit: Yes Minutes spent on Phone/Video with Pt.: 20 Assessment & Plan Assessment & Plan (1) Overweight: Code(s): E66.3 - Overweight Category: Medical Plan: Premier protein powder 1 scoop, 1 scoop, half scoop in 8 oz unsweetened almond milk, or unjury protein powder (21 gm per scoop) 1 scoop, half scoop, half scoop with 1/4 c frozen blueberries and strawberries Meal 6 forks of protein, 8 forks veg Encouraged to exercise as she is able and under the advice of her environmental services specialist but she is seeing tomorrow. We will have her return to the office in approximately 4 weeks with the understanding that she has been encouraged to text weekly with her weight and with any questions or concerns. (2) Excess skin: Code(s): L98.7 - Excessive and redundant skin and subcutaneous tissue Category: Medical Plan: Continue clotrimazole as she has been doing as needed for recurrent rashes. Was she has been encouraged to continue to track recurrence of rashes
== END 2024-01-18 15:06 | disposition home or self-care (01) ==
LOC: HO.HBS 15:00
PROVIDERS: PCP Family Medicine; Visit Provider Physician Assistant Surgical
DX: E66.3 Overweight (principal); L98.7 Excessive and redundant skin and subcutaneous tissue; Z68.27 Body mass index [BMI] 27.0-27.9, adult
CPT/HCPCS: 99442

== ENCOUNTER → 2024-01-18 14:30 | Outpatient (BNVA) | payer MEDICARE, SELFPAY | PROVIDERS: PCP Family Medicine; Visit Provider Physician Assistant Surgical | DX: E66.3 Overweight (principal); Z98.890 Other specified postprocedural states; Z87.19 Personal history of other diseases of the digestive system; E11.9 Type 2 diabetes mellitus without complications; I10 Essential (primary) hypertension; E78.00 Pure hypercholesterolemia, unspecified; Z98.84 Bariatric surgery status ==

== ENCOUNTER 2024-03-29 09:48 | Outpatient (AMB) | payer MEDICARE, SELFPAY ==
--- NOTE | 2024-03-29 09:57 | A.OFFVIS_ITS ---
VS Expanded 03/29/24 10:05 BP 142/63 H Blood Pressure Location Rt brachial Blood Pressure Position Sitting Pulse 59 Pulse Source Pulse Oximeter Temp 98.1 F Temperature Source Temporal Artery Scan Pulse Oximetry 98 Oxygen Delivery Method Room Air Height 5 ft 4.5 in Weight 154 lb 9.6 oz BMI 26.1 Body Fat % 29.8 Body Fat Mass 46.0 Fat Free Mass 108.4 Visceral Fat Rating 9.0 Body Water % 49.2 Body Water Mass 76.0 Muscle Mass/Score 103.0 Basal Metabolic Rate/Score 1,435 Intake Visit Reasons: (Ov) PO LSG 08/03/22 Medical Service Representative Required: No Allergies azithromycin Allergy (Mild, Verified 07/31/23 14:08) Hives cyclosporine Allergy (Mild, Verified 07/31/23 14:08) Hives iodine Allergy (Mild, Verified 07/31/23 14:08) Anaphylaxis Latex, Natural Rubber Allergy (Mild, Verified 07/31/23 14:08) Anaphylaxis morphine Allergy (Mild, Verified 07/31/23 14:08) Headache Penicillins Allergy (Mild, Verified 07/31/23 14:08) Hives umeclidinium [From Incruse Ellipta] Allergy (Mild, Verified 07/31/23 14:08) Hives EPINEPHRINE Allergy (Mild, Uncoded 07/31/23 14:08) RAPID HEARTBEAT Medication List - Last Reconciled 03/29/24 by LYNN Cortes albuterol sulfate 90 mcg/actuation 2 inhalations inhalation Q4-6H PRN albuterol sulfate 2.5 mg inhalation BID PRN albuterol sulfate 90 mcg/actuation inhalation amlodipine 5 mg PO DAILY amlodipine 5 mg PO DAILY atorvastatin (Lipitor) 40 mg PO QPM atorvastatin (Lipitor) 40 mg PO QPM blood sugar diagnostic (FreeStyle Lite Strips) As directed cetirizine (Zyrtec) 10 mg PO DAILY PRN chlorthalidone 25 mg PO DAILY clotrimazole 1% 1 appl topical BID desoximetasone 0.25% 1 appl topical DAILY PRN econazole 1% 1 appl topical DAILY epinephrine (EpiPen) 0.3 mg IM Q4H PRN fluocinonide 0.05% 1 appl topical BID-QID PRN fluticasone propion-salmeterol 250-50 mcg/dose (Advair Diskus) 1 inh inhalation BID fluticasone propionate 110 mcg/actuation (Flovent HFA) 1 puff inhalation BID hydroxyzine HCl 25 mg PO BEDTIME losartan 100 mg PO DAILY trazodone 100 mg PO BEDTIME PRN triamcinolone acetonide 0.1% 1 appl topical BID-TID zinc gluconate 50 mg PO DAILY HPI Comments Details: This?a?77?yo female who is s/p LSG without hiatal hernia repair on?08/03/[address] White. Presents for 1 year 7 month post op visit. Weight today is 154.6 pounds, with a BMI of 26.1. There has been a 80.8 pound weight loss,(initial weight 235.4 pounds) since starting the program on 05/02/2022 reflecting a 34.3 % total body weight loss and a weight loss of 55.4 pounds since surgery (operative weight 210 pounds) reflecting a 26.3 % TBWL since surgery. No complaints of nausea, emesis, abdominal pain or reflux. Reports infrequent but normal bowel movements every 1-2 days and uses stool softeners regularly. Patient states that she is continuing to have difficulty with excess skin of the abdomen and suprapubic area. She reports a rash to that area that improves with the use of topical clotrimazole cream and corticosteroid cream although recurs. She has had a recurrence of it approximately 3 times this past winter, with the upcoming warmer months, this increases the frequency of her rash. She will continue to use the clotrimazole and steroid creams as necessary. She reports she has had 28 occurrences since August 03, 2023. She keeps very detailed records on a spreadsheet. She has to maintain adequate hygiene by increasing washing and showering. When the rash occurs it causes significant discomfort and pain as well it is quite itchy. She additionally reports significant odor with the rash. As well, the rash that she gets significantly impacts her exercise tolerance and endurance due to discomfort. Present meal plan includes: 3 shakes per day Premier protein powder 1 scoop in 8 oz unsweetened almond milk, 6-8, 12-2, 1/2 scoop at 3-5 or Unjury (21 gm per scoop) 1 scoop in 8 oz unsweetened almond milk 6-8am, 1/2 scoop at 12-2, 3-5 ( if using Tyree's protein bar (14 gm) then use 1/4 scoop in last shake) Meal 6 forks of protein, 8 forks veg Drinking 40-50 oz water daily Exercise routine includes: exercising 6 days per week specific back exercises treadmill 0 incline, speed 3.8 PFSH Medical History Hiatal hernia GERD (gastroesophageal reflux disease) Dry eyes Osteoarthritis Eczema Diabetes Asthma HTN (hypertension) Obesity Surgical History Hx of oral surgery History of eyelid surgery Hx of colonoscopy Hx of cholecystectomy Hx of unilateral salpingectomy Hx of unilateral oophorectomy Hx of tonsillectomy Hx of appendectomy Family History Mother No problems noted. Father No problems noted. Brother Diabetes Brother Diabetes Brother Cancer Heart disease Social History Are you a primary acute care registered nurse to a significant other at home: No Do you presently have visiting nurse or other home services: No Alcohol intake: never Patient Tobacco Use Status: Former Tobacco user Tobacco use type: Cigarette Second Hand Smoke Exposure: No service: No Current occupational status: retired Physical Exam Vital Signs: Last Vital Signs Temp 98.1 F 03/29/24 10:05 Const General: healthy appearing and no acute distress Resp Effort & Inspection: normal respiratory effort Auscultation: clear to auscultation bilaterally Cardio Rate: regular rate Rhythm: regular rhythm GI Auscultation: normal bowel sounds Skin Other: Grade 2 abdominal pannus with evidence of healing rash and chronic skin inflammation. Additional smaller abdominal roll supraumbilical without rash on today's exam Extrem General: Yes normal to inspection Assessment & Plan Assessment & Plan (1) S/P laparoscopic sleeve gastrectomy: Code(s): Z98.84 - Bariatric surgery status Category: Surgical Plan: She has maintained a healthy weight. She is now more consistently exercising given her recent back pain that has improved. She is doing specific back exercises as recommended by her client resource specialist. She will continue her meal plan as listed above. We will have her return to the office as scheduled. (2) Excess skin: Code(s): L98.7 - Excessive and redundant skin and subcutaneous tissue Category: Medical Plan: Given the 80 lb weight loss since presenting to the weight management program, she has developed excess skin of the abdomen causing negative impact on her ADLs. She has had pain, poor fitting clothing and recurrent rash to the abdominal pannus despite treatment with topical antifungals and topical corticosteroid creams. She keeps very diligent records and has had 28 occurrences since 08/21/2023. She has maintained a healthy weight over the last 8 months. We will recommend medically necessary skin removal surgery of her abdomen and submit to her insurance for approval.
--- OUTSIDE RECORDS SUMMARY | 2024-03-29 09:57 | XMS_ITS | Continuity of Care Document ---
Author Organization [facility] Address [address] [facility] [address] [place] [address] Phone Care Team Providers Care Manager Agricultural Name Role Phone Patricia OD, Crystal Unavailable [...] Insulin dosing requires individualization. 0.00 - Active Januvia 100 mg tablet take [...] Diagnoses Date Provider Providers Copied on Encounter [address], [place], [place], [id number] , tel: [phone] [facility] Diabetes (chief complaint) Type 2 diabetes mellitus without complicationsHyperten sive retinopathy of both eyesAge-related nuclear cataract, bilateralDry eye syndrome of bilateral lacrimal glandsVitreous degeneration, bilateralPresbyopia May- 0 Hoffert OD Crystal. [address], [place], [place], [id number] , . tel: [phone] Referring Provider: Dionna Cuc[place]annah [place] L, [address], [place], [address] . tel:[phone] [facility], [address] [place] [address], [place], [place], [id number] , tel: [phone] [facility] Diabetic eye exam (chief complaint) Decreased vision (chief complaint) Type 2 diabetes mellitus without complicationsAge-rela mariana nuclear cataract, bilateralVitreous degeneration, bilateralDry eye syndrome of bilateral lacrimal glands 9 Hoffert OD Crystal. [address], [place], [place], [id number] , . tel: [phone] Referring Provider: Dionna C[place]annah [place] L, [address], [place], [address] . tel:[phone] [facility], [address], [place], [place], [id number] , tel: [phone] [facility] Diabetic eye exam (chief complaint) Cataract (chief complaint) Dry eye (chief complaint) Age-related nuclear cataract, bilateralDry eye syndrome of bilateral lacrimal glandsVitreous detachment of right eyeVitreous detachment of left eyeType 2 diabetes mellitus without complications 7 Hoffert OD Crystal. [address] [facility] [address] , [place], [place], [id number] , . tel: [phone] Referring Provider: Dionna Cucahannah OD L, [address] [facility] [address] , [place], [address] . tel:[phone] Offic/outpt E&m Estab Low-mod [facility], [address], [id number] , tel: [phone] [facility] Dry eye (chief complaint) Dry eye syndrome of bilateral lacrimal glands 7 Hoffert OD Dionna. [address], [id number] , . tel: [phone] Referring Provider: Dionna Gomez [place] L, [address], [address] . tel:[phone] [facility], [address], [id number] , tel: [phone] [facility] dry eye (chief complaint) Dry eye syndrome of bilateral lacrimal glands 6 Hoffert OD Dionna. [address], [address] [place] [address] , . tel: [phone] Referring Provider: Dionna Gomez [place] L, [address], [address] . tel:[phone] [facility], [address], [id number] , tel: [phone] [facility] Dry eyes (chief complaint) Dry eye syndrome of bilateral lacrimal glands 6 Hoffert [place] Crystal. [address], [id number] , . tel: [phone] Referring Provider: Dionna Gomez [place] L, [address] [facility] [address] [place], [address] . tel:[phone] [facility], [address] [facility] [address] , [place], [place], [id number] , tel: [phone] [facility] watery eyes (chief complaint) Diabetic eye exam (chief complaint) Dry eye syndrome of bilateral lacrimal glandsType 2 diabetes mellitus without complicationsType 2 diabetes mellitus with mild nonproliferative diabetic retinopathy without macular edema, left eyeVitreous degeneration, bilateralCataractAge- related nuclear cataract, bilateralDry eye syndrome of right lacrimal glandDry eye syndrome of left lacrimal gland Sondra Villareal. [address], [place], [place], [id number] , . tel:[phone] Referring Provider: Dionna Gomez OD Zenaida, [address] [facility] [address], [place], [address] . tel:[phone] Family History Family Member Type Diagnosis Age At Onset No Information Payers Payer name Insurance type Covered democrat ID Authorhugo ochoa(s) Medicare MB [id number] [employer] [id number] Social History Type Description Quantity Date Captured [...] but notices slight decrease in distance vision. Diabetic eye exam Patient presen ts for a 1 year Diabetic eye exam. Patient reports last A1C to be 10.10. Dry eye Patient presents for one year follow up for dry eyes in both eyes. Patient denies any pain or discomfort. Patient states that her eyes have felt watery in last 3 weeks. Patient informs eyes become watery while outside walking but eyes do not feel watery while indoors. Cataract Patient presents with Cataracts OU. Patient is unaware of any vision changes since last visit. Patient denies any problems with glare/halos. Dry eye Patient presents for 6 week [...] does not feel worse than the other. Paitent was prescribed restatsis, she is allergic. Patient states the last time she used artificial eye drops was last night. Diabetic eye exam Patient has elliott d [...] hazey decreased vision in her left eye. watery eyes Functional Status Date Functional Assessmen t No [...] mellitus without complications Return in 1 year wit h Hoffert OD, Crystal for Complete Dilated Fundus Exam. Related to Type 2 diabetes mellitus without complications Impression/Plan - Di scussed dry eye syndrome with patient. Begin artificial [...] bilateral lacrimal glands Follow up - Return i n 1 year with Patricia OD, Crystal for Complete Dilated Fundus Exam. Related to Type 2 diabetes mellitus without complications Impression/Plan - Up on examination, there was no diabetic retinopathy present today. The importance of good diet control and monitoring of HgA1c and blood sugar was discussed. The patient should follow up with their primary medical doctor as directed or within six to twelve months. Related to Type 2 diabetes mellitus without complications Impression/Plan - Di scussed cataract status with patient. Non visually significant at this time. Will monitor cataract status at next exam or sooner if any vision changes are noticed. Related to Age-related nuclear cataract, bilateral Impression/Plan - PV D appears stable at this time. Flashes and Floaters discussed, signs and symptoms of Retinal Detachment or Retinal tear discussed, patient is aware to be seen immediately for increased or new symptoms. Related to Vitreous detachment of left eye Impression/Plan - PV D appears stable at this time. Flashes and Floaters discussed, signs and symptoms of Retinal Detachment or Retinal tear discussed, patient is aware to be seen immediately for increased or new symptoms. Related to Vitreous detachment of right eye As scheudled with [facility] Related to Dry eye syndrome of bilateral lacrimal glands Follow up - As scheudled with [facility] Related to Dry eye syndrome of bilateral lacrimal glands Impression/Plan - Pt is noticing full relief with current treatment. CPM. RTC for annaul or sooner if any changes Related to Dry eye syndrome of bilateral lacrimal glands as scheduled for dry eye follow up Related to Dry eye syndrome of bilateral lacrimal glands Follow up - as sched uled for dry eye follow up Related to Dry eye syndrome of bilateral lacrimal glands Impression/Plan - Pt is responding well to plugs. Continue with current treatment Related to Dry eye syndrome of bilateral lacrimal glands Return in 1 week luis eduardo Gomez OD, Crystal for dry eye check. Related to Dry eye syndrome of bilateral lacrimal glands Follow up - Return i n 1 week with Hoffert OD, Crystal for dry eye check. Related to Dry eye syndrome of bilateral lacrimal glands Impression/Plan - Di scussed pathophysiology of dry eye with patient. Patient is unable to obtain relief with artificial tears alone and is allergic to Restasis. Risks/Benefits of silicone punctual plugs discussed in detail. Petite Mcgraw punctal plug OD and Small Mcgraw punctal plug OS inserted in office without complication. One drop of ofloxacin was inserted in to the eye(s) prior to insertion. See consent sheet for plug specifications. Return in 1 week for follow up or sooner if any discomfort is noted. Related to Dry eye syndrome of bilateral lacrimal glands Return in 6 weeks [facility] for dry eye eval and repeat testing. poss plugs Related to Dry eye syndrome of bilateral lacrimal glands Return in 1 year luis eduadro Gomez OD, Crystal for CEE Related to Type 2 diabetes mellitus with mild nonproliferative diabetic retinopathy without macular edema, left eye Follow up - Return i n 1 year with Hoffert OD, Crystal for CEE Related to Type 2 diabetes mellitus with mild nonproliferative diabetic retinopathy without macular edema, left eye Impression/Plan - Mi ld isolated heme today. . No macular edema present. Stressed importance of tight glucose control and importance of maintaining follow up appointments with managing doctor. Patient was educated on the effects of diabetes in the eyes. Diabetic report sent to PCP/irrigation equipment installer. Yearly dilated fundus examination recommended. Related to Type 2 diabetes mellitus with mild nonproliferative diabetic retinopathy without macular edema, left eye Impression/Plan - NO retinopathy OD, see plan for OS Related to Type 2 diabetes mellitus without complications Impression/Plan - PV D appears stable at this time. Flashes and Floaters discussed, signs and symptoms of Retinal Detachment or Retinal tear discussed, patient is aware to be seen immediately for increased or new symptoms. Related to Vitreous degeneration, bilateral Impression/Plan - Di scussed cataract status with patient. Non visually significant at this time. Will monitor cataract status at next exam or sooner if any vision changes are noticed. Related to Cataract Follow up - Return i n 6 weeks with [facility] for dry eye eval and repeat testing. poss plugs Related to Dry eye syndrome of bilateral lacrimal glands Impression/Plan - Te ar lab osmolarity and Inflammadry RPS was ordered [...]
[2024-03-29 10:05] VITALS: BP 142/63; PULSE 59; TEMP 36.7; O2SAT 98; BMI 26.1
== END 2024-03-29 10:33 | disposition home or self-care (01) ==
PROVIDERS: PCP Family Medicine; Visit Provider Physician Assistant Surgical
DX: L98.7 Excessive and redundant skin and subcutaneous tissue (principal); Z98.84 Bariatric surgery status
CPT/HCPCS: 99214; G2211

== ENCOUNTER → 2024-03-29 09:48 | Outpatient (BNVA) | payer MEDICARE, SELFPAY | PROVIDERS: PCP Family Medicine; Visit Provider Physician Assistant Surgical | DX: L98.7 Excessive and redundant skin and subcutaneous tissue (principal); E65 Localized adiposity; Z71.3 Dietary counseling and surveillance; Z98.84 Bariatric surgery status | CPT/HCPCS: 99212 ==

== ENCOUNTER 2024-06-04 10:28 | Outpatient (AMB) | payer MEDICARE, SELFPAY ==
--- NOTE | 2024-06-04 18:25 | MHC.OFFVISWM ---
VS Expanded 06/04/24 18:29 Height 5 ft 4.5 in Weight 154 lb BMI 26.0 Intake Visit Reasons: TV Pre Op Panniculectomy 06/20/24 Allergies azithromycin Allergy (Mild, Verified 06/04/24 18:31) Hives cyclosporine Allergy (Mild, Verified 06/04/24 18:31) Hives iodine Allergy (Mild, Verified 06/04/24 18:31) Anaphylaxis Latex, Natural Rubber Allergy (Mild, Verified 06/04/24 18:31) Anaphylaxis morphine Allergy (Mild, Verified 06/04/24 18:31) Headache Penicillins Allergy (Mild, Verified 06/04/24 18:31) Hives umeclidinium [From Incruse Ellipta] Allergy (Mild, Verified 06/04/24 18:31) Hives EPINEPHRINE Allergy (Mild, Uncoded 06/04/24 18:31) RAPID HEARTBEAT Medication List - Last Reconciled 06/04/24 by Dc Restrepo MD albuterol sulfate 90 mcg/actuation 2 inhalations inhalation Q4-6H PRN albuterol sulfate 2.5 mg inhalation BID PRN amlodipine 5 mg PO DAILY atorvastatin (Lipitor) 40 mg PO QPM blood sugar diagnostic (FreeStyle Lite Strips) As directed cetirizine (Zyrtec) 10 mg PO DAILY chlorthalidone 25 mg PO DAILY ciprofloxacin HCl (Cipro) 500 mg PO Q12H clotrimazole 1% 1 appl topical BID PRN desoximetasone 0.25% 1 appl topical DAILY PRN docusate sodium (Colace) 400 mg PO BID econazole nitrate 1% 1 appl topical DAILY PRN epinephrine (EpiPen) 0.3 mg IM Q4H PRN fluocinonide 0.05% 1 appl topical BID-QID PRN fluticasone propion-salmeterol 230-21 mcg/actuation 1 puff inhalation BID hydroxyzine HCl 25 mg PO BEDTIME losartan 100 mg PO DAILY [magnesium 1 tab PO BID] ondansetron 4 mg PO Q12H polyethylene glycol 3350 (Miralax) 17 grams PO DAILY trazodone 100 mg PO BEDTIME triamcinolone acetonide 0.1% 1 appl topical BID-TID PRN zinc gluconate 50 mg PO DAILY HPI HPI TV Pre Op Panniculectomy 06/20/24: Details: Start time: 2.45pm, End time: 3.15pm I spent 25 minutes speaking with the patient on the phone plus an additional 5 minutes reviewing and updating records for a total of 30 minutes HPI Comments Details: This?a?78?yo female who is s/p LSG without hiatal hernia repair on?08/03/[address] White. Presents for 1 year 7 month post op visit. Weight today is 154.6 pounds, with a BMI of 26.1. There has been a 80.8 pound weight loss,(initial weight 235.4 pounds) since starting the program on 05/02/2022 reflecting a 34.3 % total body weight loss and a weight loss of 55.4 pounds since surgery (operative weight 210 pounds) reflecting a 26.3 % TBWL since surgery. 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 Father No problems noted. Brother Diabetes Brother Diabetes Brother Cancer Heart disease Social History Are you a primary hospice care transitions coordinator to a significant other at home: No Do you presently have visiting nurse or other home services: No Alcohol intake: never Patient Tobacco Use Status: Former Tobacco user Tobacco use type: Cigarette Second Hand Smoke Exposure: No service: No Current occupational status: retired Telehealth Telehealth Telehealth Platform: Telephone Location of provider rendering services: practice address Location of patient: address on file Patient Identification confirmed using: Name, : Yes Telehealth method: voice only Patient verbally consented to treatment: Yes Patient verbally consented to billing insurance company: Yes Patient informed of any privacy concerns related to visit: Yes Minutes spent on Phone/Video with Pt.: 30 Assessment & Plan Assessment & Plan (1) Excess skin: Code(s): L98.7 - Excessive and redundant skin and subcutaneous tissue Category: Medical Plan: 1. Plan for panniculectomy. Risks of infection, bleeding, asymmetry, wound dehiscence and blood clots were discussed with the patient. 2. You will have a drain the abdomen that may stay a few weeks before it may be removed 3. You will need to be doing sponge baths the first 1-2 weeks. No showers. You need to have help at home to get you up and limit your activities as much as possible for at least the 4-6 weeks after surgery 4. We will arrange for a visiting nurse to come at home to help you with dressing changes and send me pictures of the procedures. We will send at your home supplies for the dressing changes. 5. Continue nutritional plan with two Unjury protein shakes (HALF scoop with 8oz almond milk for each shake), one Unjury protein shake with one scoop in 8oz almond milk and one meal (6 forks of protein and 8 forks of salad or vegetables). This will improve weight loss and healing after surgery. 6. Continue all vitamins 7. Do blood work not fasting any day between Monday06/10/24 and Monday06/15/24 and cloth picker the antibiotic prescription from your pharmacy 8. Risks and complications were discussed the possibility of bleeding that may require transfusion, loss of the umbilicus, wound dehiscence or infection, dog ears , flap asymmetry. We also discussed the importance of strict avoidance of weight lifting. 9. Avoid aspirin, motrin, ibuprofen, Aleve, Advil, Naproxyn. Only Tylenol is OK 10. Please measure your blood pressure daily in the morning. If your blood pressure is: less than 120/70: do not take the Chlorthalidone or the Amlodipine 121/71 to 135/85: take HALF pill of Chlorthlidone and HALF pill of Amlodipine over 136/86: take the whole pill of Chlorthalidone and whole pill of Amlodipine Do not take the Chlorthalidone the day of surgery regardless of the blood pressure reading that day Orders: Orders TSH reflex Free T4 Today K91.2 - Postsurgical malabsorption, not elsewhere classified, Z90.3 - Acquired absence of stomach [part of] Prothrombin Time INR Today K91.2 - Postsurgical malabsorption, not elsewhere classified, Z90.3 - Acquired absence of stomach [part of] Partial Thromboplastin Time Today K91.2 - Postsurgical malabsorption, not elsewhere classified, Z90.3 - Acquired absence of stomach [part of] Comprehensive Met. Panel Today K91.2 - Postsurgical malabsorption, not elsewhere classified, Z90.3 - Acquired absence of stomach [part of] Complete Blood Count Auto Diff Today K91.2 - Postsurgical malabsorption, not elsewhere classified, Z90.3 - Acquired absence of stomach [part of] Hemoglobin A1c Today K91.2 - Postsurgical malabsorption, not elsewhere classified, Z90.3 - Acquired absence of stomach [part of] Vitamin A Today K91.2 - Postsurgical malabsorption, not elsewhere classified, Z90.3 - Acquired absence of stomach [part of] Zinc Today K91.2 - Postsurgical malabsorption, not elsewhere classified, Z90.3 - Acquired absence of stomach [part of] IRON PROFILE Today K91.2 - Postsurgical malabsorption, not elsewhere classified, Z90.3 - Acquired absence of stomach [part of] Type and Screen Today K91.2 - Postsurgical malabsorption, not elsewhere classified, Z90.3 - Acquired absence of stomach [part of] Vitamin B12 Today K91.2 - Postsurgical malabsorption, not elsewhere classified, Z90.3 - Acquired absence of stomach [part of] Vitamin D 25-OH Total Today K91.2 - Postsurgical malabsorption, not elsewhere classified, Z90.3 - Acquired absence of stomach [part of] Ferritin Today K91.2 - Postsurgical malabsorption, not elsewhere classified, Z90.3 - Acquired absence of stomach [part of] Medications: New ciprofloxacin HCl (Cipro) 500 mg PO Q12H 60 tabs 2RF L03.90 - Cellulitis, unspecified ondansetron 4 mg PO Q12H 20 tabs 0RF nausea and vomiting R11.0 - Nausea
[2024-06-04 18:29] VITALS: BMI 26.0
== END 2024-06-04 18:35 | disposition home or self-care (01) ==
LOC: HO.HBS 10:28
PROVIDERS: PCP Family Medicine; Visit Provider Surgery
DX: L98.7 Excessive and redundant skin and subcutaneous tissue (principal)
CPT/HCPCS: 99214

== ENCOUNTER 2024-06-11 07:49 | Outpatient (REF) | payer MEDICARE, SELFPAY ==
--- OUTSIDE RECORDS SUMMARY | 2024-06-11 07:53 | XMS_ITS | Continuity of Care Document ---
Author Organization [facility] Address [address] [facility] [address] [place] [address] Phone Care Team Providers Care Technical Inspector Name Role Phone Patricia OD, Crystal Unavailable [...] Diagnoses Date Provider Providers Copied on Encounter [facility], [address] [place] [address] [address], [place], [place], [id number] , tel: [phone] [facility] Diabetes (chief complaint) Type 2 diabetes mellitus without complicationsHyperten sive retinopathy of both eyesAge-related nuclear cataract, bilateralDry eye syndrome of bilateral lacrimal glandsVitreous degeneration, bilateralPresbyopia May- 0 Hoffert OD Crystal. [address], [place], [place], [id number] , . tel: [phone] Referring Provider: Dionna Gomez [place] L, [address], [place], [address] . tel:[phone] [facility], [address], [place], [place], [id number] , tel: [phone] [facility] Diabetic eye exam (chief complaint) Decreased vision (chief complaint) Type 2 diabetes mellitus without complicationsAge-rela mariana nuclear cataract, bilateralVitreous degeneration, bilateralDry eye syndrome of bilateral lacrimal glands 9 Hoffert [place]. [address], [place], [place], [id number] , . tel: [phone] Referring Provider: Dionna Gomez [place] L, [address], [place], [address] . tel:[phone] [facility], [address], [place], [place], [id number] , tel: [phone] [facility] Diabetic eye exam (chief complaint) Cataract (chief complaint) Dry eye (chief complaint) Age-related nuclear cataract, bilateralDry eye syndrome of bilateral lacrimal glandsVitreous detachment of right eyeVitreous detachment of left eyeType 2 diabetes mellitus without complications 7 Hoff[address] [place], [place], [place], [id number] , . tel: [phone] Referring Provider: Dionna Gomez [place], [address], [place], [address] . tel:[phone] Offic/outpt E&m Estab Low-mod [facility] [place], [address], [address] [place] [address] , tel: [phone] [facility] Dry eye (chief complaint) Dry eye syndrome of bilateral lacrimal glands 7 Hoffert OD [place]. [address], [address] [place] [address] , . tel: [phone] Referring Provider: Dionna Gomez OD L, [id number] [place] [address], [address] . tel:[phone] [facility], [address] [place] [address], [address] [place] [address] , tel: [phone] [facility] dry eye (chief complaint) Dry eye syndrome of bilateral lacrimal glands 6 Hoffert OD Crystal. [address] [place] [address], [address] [place] [address] , . tel: [phone] Referring Provider: Dionna Gomez OD L, [address] [place] [address], [address] . tel:[phone] [facility], [address], [address] [place] [address] , tel: [phone] [facility] Dry eyes (chief complaint) Dry eye syndrome of bilateral lacrimal glands 6 Hoffert OD [place]. [address], [address] [place] [address] , . tel: [phone] Referring Provider: Dionna Gomez [place], [address], [address] [place] [address] . tel:[phone] [facility], [address], [place], [place], [id number] , tel: [phone] [facility] watery eyes (chief complaint) Diabetic eye exam (chief complaint) Dry eye syndrome of bilateral lacrimal glandsType 2 diabetes mellitus without complicationsType 2 diabetes mellitus with mild nonproliferative diabetic retinopathy without macular edema, left eyeVitreous degeneration, bilateralCataractAge- related nuclear cataract, bilateralDry eye syndrome of right lacrimal glandDry eye syndrome of left lacrimal gland Sondra Villareal. [address], [place], [place], [id number] , . [phone] Referring Provider: Dionna Gomez OD Zenaida, [address] [facility] [address], [place], [address] . tel:[phone] Family History Family Member Type Diagnosis Age At Onset No Information Payers Payer name Insurance type Covered democrat ID Melissa ochoa(s) Medicare MB [id number] [employer] [id number] Social History Type Description Quantity Date Captured [...] visit. Patient denies any problems with glare/halos. Diabetic eye exam Patient presen ts for [...] eyes do not feel watery while indoors. Dry eye Patient presents for 6 week [...] silicone punctual plugs discussed in detail. Petite [place] punctal plug OD and Small [place] punctal plug OS inserted in office without complication. One drop of ofloxacin was inserted in to the eye(s) prior to insertion. See consent sheet for plug specifications. Return in 1 week for follow up or sooner if any discomfort is noted. Related to Dry eye syndrome of bilateral lacrimal glands Return in [address] [facility] for dry eye eval and repeat [...] in the eyes. 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 Yearly dilated fundus examination recommended. Related to [...] up - Return in 6 weeks with [facility] for dry eye eval and repeat testing. [...]
--- NOTE | 2024-06-11 08:23 | ECG_ITS ---
Test Reason : preproc Blood Pressure : */* mmHG Vent. 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
[2024-06-11 09:05] LABS: Alanine Aminotransferase 27 U/L (0-31); Albumin Level 4.1 g/dL (3.5-5.0); Alkaline Phosphatase 64 U/L (39-117); Anion Gap 7 (12-20); Aspartate Amino Transferase 20 U/L (5-31); Bilirubin Total 0.4 mg/dL (0.0-1.0); Blood Urea Nitrogen 19 mg/dL (9-16); Calcium 9.8 mg/dL (8.4-10.2); Carbon Dioxide 31 mmol/L (22-29); Chloride 108 mmol/L (96-108); Estimated Glomerular Filt Rate > 60; Glucose Random 88 mg/dL (60-115); Iron 102 mcg/dL (30-160); Percent Iron Saturation 40 % (15-50); Potassium 4.2 mmol/L (3.3-5.1); Sodium 142 mmol/L (135-145); Total Iron Binding Capacity 254 mcg/dL (228-428); Total Protein 6.6 g/dL (6.5-8.0); Unsaturated Iron Binding 152 ug/dL
[2024-06-11 09:20] LABS: Vitamin B12 562 pg/mL (200-900)
[2024-06-11 09:21] LABS: Ferritin 92 ng/mL (10-250); TSH reflex Free T4 0.69 uIU/mL (0.32-4.0); Vitamin D 25-OH Total 48.8 ng/mL (>30)
[2024-06-15 13:34] LABS: Vitamin A 73 mcg/dL (38-98)
== END 2024-06-11 07:50 | disposition home or self-care (01) ==
LOC: HO.LAB 07:49
PROVIDERS: Visit Provider Physician Assistant Surgical
DX: Z01.818 Encounter for other preprocedural examination (principal)
CPT/HCPCS: 36415; 80053; 82306; 82607; 82728; 83540; 84443; 84590; 93005

== ENCOUNTER → 2024-06-11 08:23 | Outpatient (BNV) | payer MEDICARE, SELFPAY | PROVIDERS: Visit Provider Internal Medicine | DX: R00.1 Bradycardia, unspecified (principal); R94.31 Abnormal electrocardiogram [ECG] [EKG] | CPT/HCPCS: 93010 ==

== ENCOUNTER 2024-06-20 07:48 | Day surgery (SDC) | payer MEDICARE, SELFPAY ==
[2024-05-29 12:49] VITALS: BMI 25.9
[2024-06-07 08:05] LABS: MANUAL DIFF FLAG NO
[2024-06-07 08:30] LABS: Basophils Percent Auto 0.6 % (0-2); Eosinophils Absolute Auto 0.1 X10*3/uL (0.0-0.4); Eosinophils Percent Auto 1.7 % (0-4); Hematocrit 40.1 % (37.0-47.0); Hemoglobin 13.3 g/dl (12.0-16.0); Imm Gran Abs Auto 0.01 X10*3/uL (0.00-0.03); Imm Gran Pct Auto 0.2 % (0.0-0.4); Lymphocytes Absolute Auto 1.9 X10*3/uL (1.2-4.9); Mean Corpuscular HGB Conc 33.2 g/dl (31.0-35.0); Mean Corpuscular Hemoglobin 29.5 pg (27.0-33.0); Mean Corpuscular Volume 88.9 fL (80.0-98.0); Mean Platelet Volume 10.4 fL (9.4-12.3); Monocytes Absolute Auto 0.3 X10*3/uL (0.1-1.2); Monocytes Percent Auto 6.6 % (2-11); Neutrophils Absolute Auto 2.5 x10*3/uL (2.0-8.3); Neutrophils Percent Auto 50.9 % (45-73); Platelet Count 260 X10*3/uL (160-400); Red Blood Count 4.51 X10*6/uL (4.20-5.50); Red Cell Distribution Width 13.7 % (11.0-16.0); White Blood Count 4.8 X10*3/uL (4.8-10.8)
[2024-06-07 08:31] LABS: Prothrombin Time 11.4 SEC (10.9-12.4)
[2024-06-07 08:34] LABS: Partial Thromboplastin Time 29.2 SEC (26.0-36.8)
[2024-06-07 10:07] LABS: Estimated Average Glucose 114 mg/dL; Hemoglobin A1C 123.2725 umol/L; Hemoglobin A1c % 5.6 % (<6.0); Total Hemoglobin (HGBA1C) 3271.9775 umol/L
[2024-06-10 22:34] LABS: Zinc 93 mcg/dL (60-130)
--- NOTE | 2024-06-19 09:09 | P.CONAN_ITS ---
Documented by User: Esther Sanchez NP 06/19/24 09:11 HPI - Anesthesia Eval Consult details Narrative: 78yo F for Panniculectomy PMFSH Active Problems Active Problems: All Active Problems Pre-op evaluation (Acute) Excess skin (Acute) Overweight (Acute) Status post repair of paraesophageal diaphragmatic hernia (Acute) S/P laparoscopic sleeve gastrectomy (Acute) Morbid obesity due to excess calories (Acute) Preoperative cardiovascular examination (Acute) Adjustment disorder, unspecified (Acute) Abnormal EKG (Acute) Hypercholesterolemia (Acute) Asthma (Acute) GERD (gastroesophageal reflux disease) (Acute) HTN (hypertension) (Acute) Diabetes (Acute) Obesity (BMI 30-39.9) (Acute) Hiatal hernia (Acute) Past Medical History Medical History Back pain Hiatal hernia GERD (gastroesophageal reflux disease) Dry eyes Osteoarthritis Eczema Diabetes Asthma HTN (hypertension) Obesity Family History Family History Mother No problems noted. Father No problems noted. Brother Diabetes Brother Diabetes Brother Cancer Heart disease Family history of problems with anesthesia: No Surgical History Surgical History History of sleeve gastrectomy (08/03/22) Hx of oral surgery History of eyelid surgery Hx of colonoscopy Hx of cholecystectomy Hx of unilateral salpingectomy Hx of unilateral oophorectomy Hx of tonsillectomy Hx of appendectomy History of Problems with Anesthesia: No Social History Social History Are you a primary veterinarian laboratory animal care to a significant other at home: No Do you presently have visiting nurse or other home services: No Alcohol intake: never Patient Tobacco Use Status: Former Tobacco user Tobacco use type: Cigarette Second Hand Smoke Exposure: No Use of substances other than those prescribed or required for medical reasons: No Have you been hit, kicked, punched, or otherwise hurt by someone within the past year? If so, by whom?: No Are you DNR?: No Advance Directives: No Advance Directives Information Provided: Yes Advance Directives on File: No Recently lost weight without trying: No Eating poorly because of decreased appetite: No Nutrition Risks: No Nutritional Risk Patient : No : No Poor oral hygiene: Yes (UPPER CAP AND IMPLANT) service: No Current occupational status: retired Meds Allergies Allergy/AdvReac Type Severity Reaction Status Date / Time azithromycin Allergy Mild Hives Verified 06/07/24 08:45 cyclosporine Allergy Mild Hives Verified 06/07/24 08:45 iodine Allergy Mild Anaphylaxis Verified 06/07/24 08:45 Latex, Natural Rubber Allergy Mild Anaphylaxis Verified 06/07/24 08:45 morphine Allergy Mild Headache Verified 06/07/24 08:45 Penicillins Allergy Mild Hives Verified 06/07/24 08:45 umeclidinium Allergy Mild Hives Verified 06/07/24 08:45 [From Incruse Ellipta] EPINEPHRINE Allergy Mild RAPID Uncoded 06/07/24 08:45 HEARTBEAT Home Medications ?Medication ?Instructions ?Recorded ?Confirmed ?Last Taken ?Type albuterol sulfate 2.5 mg/3 mL 2.5 mg inhalation BID PRN Wheezing 04/28/22 06/04/24 Unknown History (0.083 %) solution for nebulization albuterol sulfate 90 mcg/actuation 2 inh inhalation Q4-6H PRN Wheezing 04/28/22 06/04/24 Unknown History breath activated powder inhaler atorvastatin 40 mg tablet (Lipitor) 40 mg PO QPM 04/28/22 06/04/24 Unknown History cetirizine 10 mg capsule (Zyrtec) 10 mg PO DAILY Allergy Symptoms 04/28/22 06/04/24 Unknown History desoximetasone 0.25 % topical cream 1 appl topical DAILY PRN Rash 04/28/22 06/04/24 Unknown History econazole nitrate 1 % topical cream 1 appl topical DAILY PRN Rash 04/28/22 06/04/24 Unknown History epinephrine 0.3 mg/0.3 mL 0.3 mg IM Q4H PRN Anaphylaxis 04/28/22 06/04/24 Unknown History injection, auto-injector (EpiPen) fluocinonide 0.05 % topical 1 appl topical BID-QID PRN as 04/28/22 06/04/24 Unknown History solution directed hydroxyzine HCl 25 mg tablet 25 mg PO BEDTIME 04/28/22 06/04/24 Unknown History losartan 100 mg tablet 100 mg PO DAILY 04/28/22 06/04/24 Unknown History amlodipine 5 mg tablet 5 mg PO DAILY 07/31/23 06/04/24 Unknown History blood sugar diagnostic (FreeStyle #10 ea 07/31/23 06/04/24 Unknown History Lite Strips) chlorthalidone 25 mg tablet 25 mg PO DAILY 07/31/23 06/04/24 Unknown History trazodone 50 mg tablet 100 mg PO BEDTIME 07/31/23 06/04/24 Unknown History triamcinolone acetonide 0.1 % 1 appl topical BID-TID PRN Rash 07/31/23 06/04/24 Unknown History topical cream zinc gluconate 50 mg tablet 50 mg PO DAILY 07/31/23 06/04/24 Unknown History clotrimazole 1 % topical cream 1 appl topical BID PRN Rash 05/29/24 06/04/24 Unknown History docusate sodium 100 mg capsule 400 mg PO BID 05/29/24 06/04/24 Unknown History (Colace) fluticasone propionate 230 1 puff inhalation BID 05/29/24 06/04/24 Unknown History mcg-salmeterol 21 mcg/actuation HFA inhaler magnesium 1 tab PO BID 05/29/24 06/04/24 Unknown History polyethylene glycol 3350 17 gram 17 g PO DAILY 05/29/24 06/04/24 Unknown History oral powder packet (Miralax) Exam Height,Weight and Vital Signs: Height 5 ft 4.5 in Weight 69.4 kg Pertinent Lab Results Pertinent Lab Results: Laboratory Tests 06/07/24 06/07/24 07:40 08:03 WBC 4.8 RBC 4.51 Hgb 13.3 Hct 40.1 MCV 88.9 MCH 29.5 MCHC 33.2 RDW 13.7 Plt Count 260 MPV 10.4 Immature Gran % (Auto) 0.2 Neut % (Auto) 50.9 Lymph % (Auto) 40.0 Bates % (Auto) 6.6 Eos % (Auto) 1.7 Baso % (Auto) 0.6 Lymph # (Auto) 1.9 Bates # (Auto) 0.3 Eos # (Auto) 0.1 Baso # (Auto) 0.0 Abs Immat Gran (auto) 0.01 Absolute Neuts (auto) 2.5 Absolute Nucleated RBC 0.000 Nucleated RBC % (auto) 0.0 PT 11.4 INR 1.0 APTT 29.2 Sodium Cancelled Potassium Cancelled Chloride Cancelled Carbon Dioxide Cancelled Anion Gap Cancelled BUN Cancelled Creatinine Cancelled Estim Creat Clear Calc Cancelled Estimated GFR Cancelled Random Glucose Cancelled Estimat Average Glucose 114 Hemoglobin A1c % 5.6 Calcium Cancelled Iron Cancelled TIBC Cancelled % Saturation Cancelled Unsat Iron Binding Cancelled Ferritin Cancelled Total Bilirubin Cancelled AST Cancelled ALT Cancelled Alkaline Phosphatase Cancelled Total Protein Cancelled Albumin Cancelled Vitamin A Cancelled Vitamin B12 Cancelled 25-OH Vitamin D Total Cancelled TSH Cancelled Cancelled Chem Test SEE NOTE Zinc 93 Blood Type A Positive Antibody Screen NEGATIVE Narrative Narrative: EKG 06/2024 Vent. 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 Father No problems noted. Brother Diabetes Brother Diabetes Brother Cancer Heart disease Surgical History Surgical History History of sleeve gastrectomy (08/03/22) Hx of oral surgery History of eyelid surgery Hx of colonoscopy Hx of cholecystectomy Hx of unilateral salpingectomy Hx of unilateral oophorectomy Hx of tonsillectomy Hx of appendectomy Social History Social History Are you a primary veterinarian laboratory animal care to a significant other at home: No Do you presently have visiting nurse or other home services: No Alcohol intake: never Patient Tobacco Use Status: Former Tobacco user Tobacco use type: Cigarette Second Hand Smoke Exposure: No Use of substances other than those prescribed or required for medical reasons: No Have you been hit, kicked, punched, or otherwise hurt by someone within the past year? If so, by whom?: No Are you DNR?: No Advance Directives: No Advance Directives Information Provided: Yes Advance Directives on File: No Recently lost weight without trying: No Eating poorly because of decreased appetite: No Nutrition Risks: No Nutritional Risk Patient : No : No Poor oral hygiene: Yes (UPPER CAP AND IMPLANT) service: No Current occupational status: retired Meds Allergies Allergy/AdvReac Type Severity Reaction Status Date / Time azithromycin Allergy Mild Hives Verified 06/07/24 08:45 cyclosporine Allergy Mild Hives Verified 06/07/24 08:45 iodine Allergy Mild Anaphylaxis Verified 06/07/24 08:45 Latex, Natural Rubber Allergy Mild Anaphylaxis Verified 06/07/24 08:45 morphine Allergy Mild Headache Verified 06/07/24 08:45 Penicillins Allergy Mild Hives Verified 06/07/24 08:45 umeclidinium Allergy Mild Hives Verified 06/07/24 08:45 [From Incruse Ellipta] EPINEPHRINE Allergy Mild RAPID Uncoded 06/07/24 08:45 HEARTBEAT Home Medications ?Medication ?Instructions ?Recorded ?Confirmed ?Last Taken ?Type albuterol sulfate 2.5 mg/3 mL 2.5 mg inhalation BID PRN Wheezing 04/28/22 06/04/24 Unknown History (0.083 %) solution for nebulization albuterol sulfate 90 mcg/actuation 2 inh inhalation Q4-6H PRN Wheezing 04/28/22 06/04/24 Unknown History breath activated powder inhaler atorvastatin 40 mg tablet (Lipitor) 40 mg PO QPM 04/28/22 06/04/24 Unknown History cetirizine 10 mg capsule (Zyrtec) 10 mg PO DAILY Allergy Symptoms 04/28/22 06/04/24 Unknown History desoximetasone 0.25 % topical cream 1 appl topical DAILY PRN Rash 04/28/22 06/04/24 Unknown History econazole nitrate 1 % topical cream 1 appl topical DAILY PRN Rash 04/28/22 06/04/24 Unknown History epinephrine 0.3 mg/0.3 mL 0.3 mg IM Q4H PRN Anaphylaxis 04/28/22 06/04/24 Unknown History injection, auto-injector (EpiPen) fluocinonide 0.05 % topical 1 appl topical BID-QID PRN as 04/28/22 06/04/24 Unknown History solution directed hydroxyzine HCl 25 mg tablet 25 mg PO BEDTIME 04/28/22 06/04/24 Unknown History losartan 100 mg tablet 100 mg PO DAILY 04/28/22 06/04/24 Unknown History amlodipine 5 mg tablet 5 mg PO DAILY 07/31/23 06/04/24 Unknown History blood sugar diagnostic ([place] #10 ea 07/31/23 06/04/24 Unknown History Lite Strips) chlorthalidone 25 mg tablet 25 mg PO DAILY 07/31/23 06/04/24 Unknown History trazodone 50 mg tablet 100 mg PO BEDTIME 07/31/23 06/04/24 Unknown History triamcinolone acetonide 0.1 % 1 appl topical BID-TID PRN Rash 07/31/23 06/04/24 Unknown History topical cream zinc gluconate 50 mg tablet 50 mg PO DAILY 07/31/23 06/04/24 Unknown History clotrimazole 1 % topical cream 1 appl topical BID PRN Rash 05/29/24 06/04/24 Unknown History docusate sodium 100 mg capsule 400 mg PO BID 05/29/24 06/04/24 Unknown History (Colace) fluticasone propionate 230 1 puff inhalation BID 05/29/24 06/04/24 Unknown History mcg-salmeterol 21 mcg/actuation HFA inhaler magnesium 1 tab PO BID 05/29/24 06/04/24 Unknown History polyethylene glycol 3350 17 gram 17 g PO DAILY 05/29/24 06/04/24 Unknown History oral powder packet (Miralax) Exam Airway Mallampati Class: II TM Dist: >3cm Neck ROM: Full Heart: rrr Lungs: cta Assessment and Plan Assessment Anesthesia Assessment: Anesthesia Plan Discussed Final Anesthetic Review NPO: Yes ASA Class: III Final Preanesthetic Review: No Changes in Pt Med Stat, Meds/Allgs Chart Reviewed and Consent Obtained/Reviewed Patient Risk: Intermediate Procedure Risk: Intermediate Anesthetic Plan Anesthetic Plan: GA Disposition: Standard PACU
[2024-06-20] VITALS (20 sets, daily range): BP systolic 116–135; BP diastolic 43–59; PULSE 53–70; RESP 14–20; TEMP 36.6–36.7; O2SAT 93–98
[2024-06-20] MEDS: Lactated Ringers 1,000 ML 100 ML IVCONT (08:39)
[2024-06-20 08:41] LABS: Glucose, Whole Blood 122 mg/dL (60-115)
--- NOTE | 2024-06-20 09:55 | MHC.SHP ---
Pre-Procedural Eval Section A - 24 Hr Update-Section A only Date of Service: 06/20/24 The patient is an INPATIENT: No The patient has been examined within 24 hours of the surgical procedure. The History & Physical has been completed within 30 days and I have reviewed it.: Yes Section B - Complete if H&P > 30 days Chief Complaint: Excessive and redundant skin and subcutaneous tiss Relevant Family History (Specify if Yes): No Relevant Social History: None Present Medications: None Medical History: No relevant PMH History of Previous Operations: Relevant previous surgery/procedure and date(s) (Lap sleeve gastrectomy) Allergies: Allergies Allergy/AdvReac Type Severity Reaction Status Date / Time azithromycin Allergy Mild Hives Verified 06/20/24 08:21 cyclosporine Allergy Mild Hives Verified 06/20/24 08:21 iodine Allergy Mild Anaphylaxis Verified 06/20/24 08:21 Latex, Natural Rubber Allergy Mild Anaphylaxis Verified 06/20/24 08:21 morphine Allergy Mild Headache Verified 06/20/24 08:21 Penicillins Allergy Mild Hives Verified 06/20/24 08:21 umeclidinium Allergy Mild Hives Verified 06/20/24 08:21 [From Incruse Ellipta] EPINEPHRINE Allergy Mild RAPID Uncoded 06/20/24 08:21 HEARTBEAT Review of Systems Sugical H&P ROS: Negative: Constitution, Cardiovascular, Respiratory, Neurological, Psychiatric, Hem-Onc, Allergic/Immunologic, Gastrointestinal, Genitourinary, Musculoskeletal, Integumentary, Endocrine and Eyes/Ears/Nose/Throat Exam Surgical H&P Exam: Normal: HEENT, Normal: Heart, Normal: Lungs, Normal: Extremities, Normal: Abdomen, Normal: Skin and Normal: Neurological Plan Diagnosis/Plan: Unchanged I have reviewed the history and physical and performed a pertinent physical examination on my patient. No changes have occurred unless specified. Time Spent With Patient Time: Total time managing care of this patient today ____ minutes.
--- NOTE | 2024-06-20 10:02 | PM.OP ---
Brief Operative Note Date of Service: 06/20/24 Pre-op diagnosis: Excess skin Post-op diagnosis: same Procedure: PROCEDURE: Panniculectomy with umbilical transposition and bilateral subcutaneous fat flaps INDICATION: This a 78 year old female who underwent laparoscopic sleeve gastrectomy on 08/23/2022. She had an excellent result achieving a BMI of 26 kg/m2 with a total weight loss of 80.8lbs, or 34.3% of her TBWL. 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 On exam she has extreme skin laxity due to massive weight loss, with the abdominal pannus completely hanging 4cm below the pubis. Panniculectomy was recommended. We discussed the two options for the panniculectomy of using a combined vertical and horizontal incisions or just a horizontal (bikini) incision. It was my recommendation to do only horizontal incision based on her body habitus and skin laxity. The patient agreed with this. Risks and complications were discussed with the patient including bleeding, infection, umbilical loss, flap necrosis, asymmetry, dehiscence, seroma, VTE. The patient understood the risks and was in agreement to proceed with surgery. PROCEDURE: The incisions were appropriately marked at the preop area with the patient standing and laying down. After induction of general anesthesia a Juan catheter and pneumatic compression devices were placed. The patient was prepped and draped in the usual sterile manner and the incisions were marked again and confirmed. The skin was infiltrated with lidocaine and epinephrine. The #10 blade scalpel was used for the large incisions and the #15 blade scalpel for the umbilicus. Cautery was used to divide the subcutaneous tissues until the fascia was identified. Then I used the cautery to separate the pannus from the fascia. The inferior incision was made initially and I mobilized the flap for a several centimeters cephalad to the umbilicus. The umbilicus was incised circumferentially and detached from the surrounding tissues all the way to the fascia while its stalk was preserved. With the patient in reflex position I confirmed that the skin flaps were appropriate and would allow for the tissues to come together with reasonable tension. At that point a horizontal incision was made 4 cm above the umbilicus. #10 blade was used for the skin, cautery for the dermis and for the remaining tissues. A subcutaneous fat flap was raised from the upper skin flap in order to fill the space under the skin and support the closure of the two flaps. In addition the inferior flap was mobilized caudally for a few centimeters to create a space for the subcutaneous fat flap as well as relieve tension from the closure. A circumferential incision was made at the area where the umbilicus would be re-implanted. The umbilicus was appropriately oriented and was delivered through the defect and was secured in place with a [place]. No bleeding was noted anywhere. One PRECIOUS drain was placed from the left corner of the horizontal incision across the wound and was secured in place with a silk suture. The subcutaneous fat flap was secured under the inferior flap with several interrupted 3.0 Monocryl sutures. The two flaps were brought together and were attached at the midline of the horizontal incision with a #3.0 Monocryl suture. At that point the umbilicus was properly oriented and was re-approximated to the skin with 8 interrupted 3.0 Monocryl sutures. In a similar fashion the skin flaps were re-approximated with multiple 3.0 Monocryl sutures. The skin was closed in all incisions and umbilicus with 4.0 Monocryl sutures. Steri-strips, xeroform gauzes and gauzes were used to cover the incisions. An abdominal binder was also placed. The was awaken and was transferred to the recover room in a stable condition. I was present and performed the entire procedure. Fabiola was the first breaker feeder. Mirza Restrepo MD, PhD, FACS Surgeon: Dc Restrepo MD Surgeon: Dc Restrepo MD Anesthesia: GETA and local Was an Supervising Floorperson used for this Procedure?: No Supervising Floorperson: Bailee Hicks Estimated blood loss (mL): 10 IV fluids (mL): 500 Urine output (mL): 0 (No Juan to record output) Pathology: other (Abdominal pannus) Condition: stable Disposition: PACU
--- NOTE | 2024-06-20 10:18 | W.MHC.F2F ---
Service Date Service Date: 06/20/24 Encounter Date of encounter: 06/20/24 Reasons for Services Signs and symptoms assessed: s/p panniculectomy with drain placement, requires group home visits for wound care and drain care 3x/week Reason for group home: wound care and other (drain care) Homebound: Leaving the home is medically contraindicated at this time without the asist of a device and/or another person due th the listed conditions above and below. Reason homebound: unable to drive Certification: Based on the above findings, I certify that this patient is confined to the home and needs intermittent group home care, physical therapy and/or speech therapy, or continues to need occupational therapy. The patient is under my care, and I have initiated the establishment of the plan of care. The patient will be followed by a physician who will periodically review the plan of care. Time Spent With Patient Time: Total time managing care of this patient today __30__ minutes.
[2024-06-20] MEDS: fentaNYL citrate/PF 100 MCG/2 ML VIAL 25 MCG IVPUSH ×4 (14:20→14:55)
== END 2024-06-20 17:36 | disposition home or self-care (01) ==
PROVIDERS: PCP Family Medicine; Visit Provider Surgery
PROC: 0JB80ZZ Excision of Abdomen Subcutaneous Tissue and Fascia, Open Approach (ICD-10-PCS; CPT 15830; principal; 2024-06-20 10:10)
DX: L98.7 Excessive and redundant skin and subcutaneous tissue (principal); M79.3 Panniculitis, unspecified; E65 Localized adiposity; K91.2 Postsurgical malabsorption, not elsewhere classified; Z90.3 Acquired absence of stomach [part of]; R11.0 Nausea; L30.9 Dermatitis, unspecified; L03.90 Cellulitis, unspecified; E66.3 Overweight; Z68.26 Body mass index [BMI] 26.0-26.9, adult; K21.9 Gastro-esophageal reflux disease without esophagitis; I10 Essential (primary) hypertension; E11.9 Type 2 diabetes mellitus without complications; J45.909 Unspecified asthma, uncomplicated; K44.9 Diaphragmatic hernia without obstruction or gangrene; Z79.51 Long term (current) use of inhaled steroids; Z79.899 Other long term (current) drug therapy; Z88.0 Allergy status to penicillin; Z88.1 Allergy status to other antibiotic agents; Z88.5 Allergy status to narcotic agent; Z91.040 Latex allergy status; Z98.890 Other specified postprocedural states; Z87.891 Personal history of nicotine dependence
CPT/HCPCS: 15830; 15847; 36415; 80053; 82306; 82607; 82728; 82947; 83036; 83540; 84443; 84590; 84630; 85025; 85610; 85730; 86850; 86900; 86901; 88304; J0131; J1100; J1956; J2003; J2004; J2250; J2405; J2704; J3010; J3370

== ENCOUNTER → 2024-06-20 07:48 | Outpatient (BNV) | payer MEDICARE, SELFPAY | PROVIDERS: PCP Family Medicine; Visit Provider Physician Assistant Surgical | DX: M79.3 Panniculitis, unspecified (principal); L98.7 Excessive and redundant skin and subcutaneous tissue | CPT/HCPCS: 15830; G0180 ==

== ENCOUNTER 2024-06-27 09:34 | Outpatient (AMB) | payer MEDICARE, SELFPAY ==
--- NOTE | 2024-06-27 09:42 | A.OFFVIS_ITS ---
VS Expanded 06/27/24 09:47 BP 139/61 Blood Pressure Location Lt brachial Blood Pressure Position Sitting Pulse 54 Pulse Oximetry 99 Intake Visit Reasons: (OV) s/p Panniculectomy 06/20/24 World [employer] Required: No Allergies azithromycin Allergy (Mild, Verified 06/27/24 09:44) Hives cyclosporine Allergy (Mild, Verified 06/27/24 09:44) Hives iodine Allergy (Mild, Verified 06/27/24 09:44) Anaphylaxis Latex, Natural Rubber Allergy (Mild, Verified 06/27/24 09:44) Anaphylaxis morphine Allergy (Mild, Verified 06/27/24 09:44) Headache Penicillins Allergy (Mild, Verified 06/27/24 09:44) Hives umeclidinium [From Incruse Ellipta] Allergy (Mild, Verified 06/27/24 09:44) Hives EPINEPHRINE Allergy (Mild, Uncoded 06/27/24 09:44) RAPID HEARTBEAT HPI Comments Details: Patient is a pleasant 78-year-old female who is post panniculectomy performed on 06/2024. She reports approximately 80 mL serosanguineous fluid within the collection bulb daily. She denies any pain. She is feeling very well. Following the meal plan and continues antibiotics as directed by Dr. Restrepo. [facility] Medical History Back pain Hiatal hernia GERD (gastroesophageal reflux disease) Dry eyes Osteoarthritis Eczema Diabetes Asthma HTN (hypertension) Obesity Surgical History History of sleeve gastrectomy (08/03/22) Hx of oral surgery History of eyelid surgery Hx of colonoscopy Hx of cholecystectomy Hx of unilateral salpingectomy Hx of unilateral oophorectomy Hx of tonsillectomy Hx of appendectomy Family History Mother No problems noted. Father No problems noted. Brother Diabetes Brother Diabetes Brother Cancer Heart disease Social History Are you a primary long term acute care registered nurse to a significant other at home: No Do you presently have visiting nurse or other home services: No Alcohol intake: never Patient Tobacco Use Status: Former Tobacco user Tobacco use type: Cigarette Second Hand Smoke Exposure: No service: No Current occupational status: retired Physical Exam Vital Signs: Last Vital Signs Pulse 54 06/27/24 09:47 BP 139/61 06/27/24 09:47 Pulse Ox 99 06/27/24 09:47 Skin Other: Incision is clean, dry, intact. Assessment & Plan Assessment & Plan (1) S/P panniculectomy: Code(s): Z98.890 - Other specified postprocedural states Category: Surgical Plan: Patient is doing well post panniculectomy. Continue meal plan and antibiotics as directed by Dr. Restrepo. She may walk in the house as she is able. Return to clinic 1 week
[2024-06-27 09:47] VITALS: BP 139/61; PULSE 54; O2SAT 99
== END 2024-06-27 10:38 | disposition home or self-care (01) ==
LOC: HO.HBS 09:35
PROVIDERS: PCP Family Medicine; Visit Provider Physician Assistant Surgical
DX: Z98.890 Other specified postprocedural states (principal)
CPT/HCPCS: 99024

== ENCOUNTER → 2024-06-27 09:34 | Outpatient (BNVA) | payer MEDICARE, SELFPAY | PROVIDERS: PCP Family Medicine; Visit Provider Physician Assistant Surgical | DX: Z48.817 Encounter for surgical aftercare following surgery on the skin and subcutaneous tissue (principal); Z98.890 Other specified postprocedural states | CPT/HCPCS: 99212 ==

== ENCOUNTER 2024-07-04 10:06 | Outpatient (AMB) | payer MEDICARE, SELFPAY ==
--- NOTE | 2024-07-04 10:10 | MHC.OFFVISWM ---
VS Expanded 07/04/24 10:13 BP 132/60 Blood Pressure Location Lt brachial Blood Pressure Position Sitting Pulse 81 Pulse Source Pulse Oximeter Pulse Oximetry 97 Intake Visit Reasons: (OV) s/p Panniculectomy 06/20/24 Allergies azithromycin Allergy (Mild, Verified 07/04/24 10:10) Hives cyclosporine Allergy (Mild, Verified 07/04/24 10:10) Hives iodine Allergy (Mild, Verified 07/04/24 10:10) Anaphylaxis Latex, Natural Rubber Allergy (Mild, Verified 07/04/24 10:10) Anaphylaxis morphine Allergy (Mild, Verified 07/04/24 10:10) Headache Penicillins Allergy (Mild, Verified 07/04/24 10:10) Hives umeclidinium [From Incruse Ellipta] Allergy (Mild, Verified 07/04/24 10:10) Hives EPINEPHRINE Allergy (Mild, Uncoded 07/04/24 10:10) RAPID HEARTBEAT HPI Comments Details: Patient is a very pleasant 78-year-old female who returns to the office today in follow-up. She is status post panniculectomy on 06/2024. Reports about 60-75 mL of serosanguineous fluid per day. No complaints of pain. [facility] Medical History Back pain Hiatal hernia GERD (gastroesophageal reflux disease) Dry eyes Osteoarthritis Eczema Diabetes Asthma HTN (hypertension) Obesity Surgical History History of sleeve gastrectomy (08/03/22) Hx of oral surgery History of eyelid surgery Hx of colonoscopy Hx of cholecystectomy Hx of unilateral salpingectomy Hx of unilateral oophorectomy Hx of tonsillectomy Hx of appendectomy Family History Mother No problems noted. Father No problems noted. Brother Diabetes Brother Diabetes Brother Cancer Heart disease Social History Are you a primary insurance healthcare consultant to a significant other at home: No Do you presently have visiting nurse or other home services: No Alcohol intake: never Patient Tobacco Use Status: Former Tobacco user Tobacco use type: Cigarette Second Hand Smoke Exposure: No service: No Current occupational status: retired Physical Exam Vital Signs: Last Vital Signs Pulse 81 07/04/24 10:13 BP 132/60 07/04/24 10:13 Pulse Ox 97 07/04/24 10:13 Skin Other: Transverse incision healing nicely. No evidence of dehiscence or infection. Umbilical is viable. No evidence of dehiscence or infection. Assessment & Plan Assessment & Plan (1) S/P panniculectomy: Code(s): Z98.890 - Other specified postprocedural states Category: Surgical Plan: Patient is doing well postoperatively. Continue current treatment plans. Return to the office next week for follow-up visit
[2024-07-04 10:13] VITALS: BP 132/60; PULSE 81; O2SAT 97
--- OUTSIDE RECORDS SUMMARY | 2024-07-04 10:56 | XMS_ITS | Continuity of Care Document ---
Author Organization [facility] Address [address] [facility] [address] [place] [address] Phone Care Team Providers Care Gem Stone Cutter Name Role Phone Patricia OD, Crystal Unavailable [...] Diagnoses Date Provider Providers Copied on Encounter [facility], [address] [place] [address] [address], [place], [place], [address] , tel: [phone] [facility] Diabetes (chief complaint) Type 2 diabetes mellitus without complicationsHyperten sive retinopathy of both eyesAge-related nuclear cataract, bilateralDry eye syndrome of bilateral lacrimal glandsVitreous degeneration, bilateralPresbyopia May- 0 Hoffert OD Crystal. [address], [place], [place], [address] , . tel: [phone] Referring Provider: Dionna Gomez [place] L, [address], [place], [address] . tel:[phone] [facility], [address], [place], [place], [address] , tel: [phone] [facility] Diabetic eye exam (chief complaint) Decreased vision (chief complaint) Type 2 diabetes mellitus without complicationsAge-rela mariana nuclear cataract, bilateralVitreous degeneration, bilateralDry eye syndrome of bilateral lacrimal glands 9 [place] [place], [place], [place], [address] , . tel: [phone] Referring Provider: [place] L, [address], [place], [address] . tel:[phone] [facility], [address], [place], [place], [address] , tel: [phone] [facility] Diabetic eye exam (chief complaint) Cataract (chief complaint) Dry eye (chief complaint) Age-related nuclear cataract, bilateralDry eye syndrome of bilateral lacrimal glandsVitreous detachment of right eyeVitreous detachment of left eyeType 2 diabetes mellitus without complications 7 [place] [place], [place], [place], [address] , . tel: [phone] Referring Provider: Dionna Gomez [place] L, [address], [place], [address] . tel:[phone] Offic/outpt E&m Estab Low-mod St [place], [address], [address] [place] [address] , tel: [phone] [facility] Dry eye (chief complaint) Dry eye syndrome of bilateral lacrimal glands 7 Hoffert OD Crystal. [address], [address] [place] [address] , . tel: [phone] Referring Provider: Dionna Gomez OD L, [address] [place] [address], [address] . tel:[phone] [facility], [address] [place] [address], [address] [place] [address] , tel: [phone] [facility] dry eye (chief complaint) Dry eye syndrome of bilateral lacrimal glands 6 Hoffert OD Crystal[address] [place] [address], [address] [place] [address] , . tel: [phone] Referring Provider: Dionna Gomez OD L, [address] [place] [address], [address] . tel:[phone] [facility], [address], [address] [place] [address] , tel: [phone] [facility] Dry eyes (chief complaint) Dry eye syndrome of bilateral lacrimal glands 6 Hoffert OD Crystal. [address], [address] [place] [address] , . tel: [phone] Referring Provider: Dionna Gomez OD L, [address], [address] [place] [address] . tel:[phone] [facility], [address], [place], [place], [address] , tel: [phone] [facility] watery eyes (chief complaint) Diabetic eye exam (chief complaint) Dry eye syndrome of bilateral lacrimal glandsType 2 diabetes mellitus without complicationsType 2 diabetes mellitus with mild nonproliferative diabetic retinopathy without macular edema, left eyeVitreous degeneration, bilateralCataractAge- related nuclear cataract, bilateralDry eye syndrome of right lacrimal glandDry eye syndrome of left lacrimal gland Sondra Villareal. [address], [place], [place], [address] , . [phone] Referring Provider: Dionna Gomez OD Zenaida, [address] [facility] [address], [place], [address] . tel:[phone] Family History Family Member Type Diagnosis Age At Onset No Information Payers Payer name Insurance type Covered democrat ID Melissa ochoa(s) Medicare MB [id number] Scancell [id number] Social History Type Description Quantity Date Captured [...] silicone punctual plugs discussed in detail. Petite [place] punctal plug OD and Small [place] punctal plug OS inserted in office without complication. One drop of ofloxacin was inserted in to the eye(s) prior to insertion. See consent sheet for plug specifications. Return in 1 week for follow up or sooner if any discomfort is noted. Related to Dry eye syndrome of bilateral lacrimal glands Return in [address] [facility] for dry eye eval and repeat testing. [...] in the eyes. Diabetic report sent to PCP/corporate attorney. Yearly dilated fundus examination recommended. Related to [...] up - Return in 6 weeks with [facility] for dry eye eval and repeat testing. [...]
== END 2024-07-04 10:42 | disposition home or self-care (01) ==
LOC: HO.HBS 10:07
PROVIDERS: PCP Family Medicine; Visit Provider Physician Assistant Surgical
DX: Z98.890 Other specified postprocedural states (principal)
CPT/HCPCS: 99024

== ENCOUNTER → 2024-07-04 10:06 | Outpatient (BNVA) | payer MEDICARE, SELFPAY | PROVIDERS: PCP Family Medicine; Visit Provider Physician Assistant Surgical | DX: Z48.817 Encounter for surgical aftercare following surgery on the skin and subcutaneous tissue (principal); Z98.890 Other specified postprocedural states | CPT/HCPCS: 99212 ==

== ENCOUNTER 2024-07-12 14:42 | Outpatient (AMB) | payer MEDICARE, SELFPAY ==
--- OUTSIDE RECORDS SUMMARY | 2024-07-12 14:58 | XMS_ITS | Continuity of Care Document ---
Author Organization [facility] Address [address] [facility] [address] [place] [address] Phone Care Team Providers Care Ciaio Counter Molder Name Role Phone Patricia OD, Crystal Unavailable [...] Diagnoses Date Provider Providers Copied on Encounter [facility], [address] [place] [address] [address], [place], [place], [address] , tel: [phone] [facility] Diabetes (chief complaint) Type 2 diabetes mellitus without complicationsHyperten sive retinopathy of both eyesAge-related nuclear cataract, bilateralDry eye syndrome of bilateral lacrimal glandsVitreous degeneration, bilateralPresbyopia May- 0 Hoffert OD Crystal. [address] [facility], [place], [place], [address] , . tel: [phone] Referring Provider: Dionna Gomez OD L, [address], [place], [address] . tel:[phone] [facility], [address], [place], [place], [address] , tel: [phone] [facility] Diabetic eye exam (chief complaint) Decreased vision (chief complaint) Type 2 diabetes mellitus without complicationsAge-rela mariana nuclear cataract, bilateralVitreous degeneration, bilateralDry eye syndrome of bilateral lacrimal glands 9 [place] [place], [place], [place], [address] , . tel: [phone] Referring Provider: Dionna Gomez OD L, [address], [place], [address] . tel:[phone] [facility], [address], [place], [place], [address] , tel: [phone] [facility] Diabetic eye exam (chief complaint) Cataract (chief complaint) Dry eye (chief complaint) Age-related nuclear cataract, bilateralDry eye syndrome of bilateral lacrimal glandsVitreous detachment of right eyeVitreous detachment of left eyeType 2 diabetes mellitus without complications 7 [place] [place], [place], [place], [address] , . tel: [phone] Referring Provider: Dionna Gomez [place] L, [address], [place], [address] . tel:[phone] Offic/outpt E&m Estab Low-mod St [place], [address], [address] [place] [address] , tel: [phone] [facility] Dry eye (chief complaint) Dry eye syndrome of bilateral lacrimal glands 7 Hoffert OD Crystal. [address], [address] [place] [address] , . tel: [phone] Referring Provider: Dionna Gomez OD L, [address] [place] [address], [address] . tel:[phone] [facility], [address] [place] [address], [address] [place] [address] , tel: [phone] [facility] dry eye (chief complaint) Dry eye syndrome of bilateral lacrimal glands 6 Hoffert OD Crystal. [address] [place] [address], [address] [place] [address] , . tel: [phone] Referring Provider: Dionna Gomez OD L, [address] [place] [address], [address] . tel:[phone] [facility], [address], [address] [place] [address] , tel: [phone] [facility] Dry eyes (chief complaint) Dry eye syndrome of bilateral lacrimal glands 6 Hoffert OD Crystal. [address], [address] [place] [address] , . tel: [phone] Referring Provider: Dionna Gomez [place] L, [address], [address] [place] [address] . tel:[phone] [facility], [address], [place], [place], [address] , tel: [phone] [facility] watery eyes (chief complaint) Diabetic eye exam (chief complaint) Dry eye syndrome of bilateral lacrimal glandsType 2 diabetes mellitus without complicationsType 2 diabetes mellitus with mild nonproliferative diabetic retinopathy without macular edema, left eyeVitreous degeneration, bilateralCataractAge- related nuclear cataract, bilateralDry eye syndrome of right lacrimal glandDry eye syndrome of left lacrimal gland Sondra Villareal. [address], [place], [place], [address] , . [phone] Referring Provider: Dionna Gomez OD Zenaida, [address] [facility] [address], [place], [address] . tel:[phone] Family History Family Member Type Diagnosis Age At Onset No Information Payers Payer name Insurance type Covered libertarian ID Melissa ochoa(s) Medicare MB [id number] Smarp. [id number] Social History Type Description Quantity Date Captured [...] silicone punctual plugs discussed in detail. Petite [place] punctal plug OD and Small [place] punctal plug OS inserted in office without complication. One drop of ofloxacin was inserted in to the eye(s) prior to insertion. See consent sheet for plug specifications. Return in 1 week for follow up or sooner if any discomfort is noted. Related to Dry eye syndrome of bilateral lacrimal glands Return in 6 weeks [facility] for dry eye eval and repeat [...] in the eyes. Diabetic report sent to PCP/spanish literature professor. Yearly dilated fundus examination recommended. Related to [...] up - Return in 6 weeks with [facility] for dry eye eval and repeat [...]
--- NOTE | 2024-07-12 15:55 | MHC.OFFVISWM ---
Intake Visit Reasons: (OV) s/p Panniculectomy 06/20/24 Allergies azithromycin Allergy (Mild, Verified 07/04/24 10:10) Hives cyclosporine Allergy (Mild, Verified 07/04/24 10:10) Hives iodine Allergy (Mild, Verified 07/04/24 10:10) Anaphylaxis Latex, Natural Rubber Allergy (Mild, Verified 07/04/24 10:10) Anaphylaxis morphine Allergy (Mild, Verified 07/04/24 10:10) Headache Penicillins Allergy (Mild, Verified 07/04/24 10:10) Hives umeclidinium [From Incruse Ellipta] Allergy (Mild, Verified 07/04/24 10:10) Hives EPINEPHRINE Allergy (Mild, Uncoded 07/04/24 10:10) RAPID HEARTBEAT Medication List - Last Reconciled 07/12/24 by LYNN Kirby albuterol sulfate 90 mcg/actuation 2 inhalations inhalation Q4-6H PRN albuterol sulfate 2.5 mg inhalation BID PRN amlodipine 5 mg PO DAILY atorvastatin (Lipitor) 40 mg PO QPM blood sugar diagnostic (FreeStyle Lite Strips) As directed cetirizine (Zyrtec) 10 mg PO DAILY chlorthalidone 50 mg PO DAILY ciprofloxacin HCl (Cipro) 500 mg PO Q12H clotrimazole 1% 1 appl topical BID PRN desoximetasone 0.25% 1 appl topical DAILY PRN docusate sodium (Colace) 400 mg PO BID docusate sodium (Colace) 100 mg PO DAILY econazole nitrate 1% 1 appl topical DAILY PRN epinephrine (EpiPen) 0.3 mg IM Q4H PRN fluocinonide 0.05% 1 appl topical BID-QID PRN fluticasone propion-salmeterol 230-21 mcg/actuation 1 puff inhalation BID hydroxyzine HCl 25 mg PO BEDTIME losartan 100 mg PO DAILY [magnesium 1 tab PO BID] ondansetron 4 mg PO Q12H polyethylene glycol 3350 (Miralax) 17 grams PO DAILY trazodone 100 mg PO BEDTIME triamcinolone acetonide 0.1% 1 appl topical BID-TID PRN zinc gluconate 50 mg PO DAILY HPI Comments Details: Pt is s/p panniculectomy 06/20/2024. No fevers at home. Following meal plan. Drain output has been 25-40cc daily. Wearing binder. Taking abx. 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 Father No problems noted. Brother Diabetes Brother Diabetes Brother Cancer Heart disease Social History Are you a primary pharmacy customer care specialist to a significant other at home: No Do you presently have visiting nurse or other home services: No Alcohol intake: never Patient Tobacco Use Status: Former Tobacco user Tobacco use type: Cigarette Second Hand Smoke Exposure: No service: No Current occupational status: retired Physical Exam Const General: cooperative, comfortable and no acute distress Orientation/consciousness: patient oriented x3 GI Other: soft, nontender, nondistended incisions healing well with steri-strips c/d/i. Sutures from umbilicus removed. There is some eschar here with perhaps a small area of dehiscence in LUQ but only 1-2mm and it is clean, superficial, no erythema. drain output SS Neuro General: patient oriented x3 Assessment & Plan Assessment & Plan (1) S/P panniculectomy: Code(s): Z98.890 - Other specified postprocedural states Category: Surgical Plan Umbilical sutures removed today. Drain kept in place. Continue high protein diet. ABX keflex 500 BID x 2 weeks, extended as needed?(at least until drain comes out plus 1 week).? Drain out after consistently 20 mL or less daily.? Abdominal binder at all times except for care x 1 month?MINIMUM. If there are concerns longer.? No driving?until drain out.? No walking outside or exercise for 6 weeks minimum. Assistance getting up for 4 weeks minimum.?No lifting greater than?10 pounds x 2 months and no abdominal exercises x 3 months. RTC 1 week.
== END 2024-07-12 15:57 | disposition home or self-care (01) ==
LOC: HO.HBS 14:43
PROVIDERS: PCP Family Medicine; Visit Provider Physician Assistant Surgical
DX: Z98.890 Other specified postprocedural states (principal)
CPT/HCPCS: 99024

== ENCOUNTER → 2024-07-12 14:42 | Outpatient (BNVA) | payer MEDICARE, SELFPAY | PROVIDERS: PCP Family Medicine; Visit Provider Physician Assistant Surgical | DX: Z48.817 Encounter for surgical aftercare following surgery on the skin and subcutaneous tissue (principal); Z98.890 Other specified postprocedural states | CPT/HCPCS: 99212 ==

== ENCOUNTER 2024-07-19 09:45 | Outpatient (AMB) | payer MEDICARE, SELFPAY ==
--- NOTE | 2024-07-19 09:54 | A.OFFVIS_ITS ---
VS Expanded 07/19/24 10:04 BP 119/58 L Blood Pressure Location Rt brachial Blood Pressure Position Sitting Pulse 64 Pulse Source Pulse Oximeter Temp 97.9 F Temperature Source Temporal Artery Scan Pulse Oximetry 96 Oxygen Delivery Method Room Air Intake Visit Reasons: (OV) s/p Panniculectomy 06/20/24 Allergies azithromycin Allergy (Mild, Verified 07/19/24 10:05) Hives cyclosporine Allergy (Mild, Verified 07/19/24 10:05) Hives iodine Allergy (Mild, Verified 07/19/24 10:05) Anaphylaxis Latex, Natural Rubber Allergy (Mild, Verified 07/19/24 10:05) Anaphylaxis morphine Allergy (Mild, Verified 07/19/24 10:05) Headache Penicillins Allergy (Mild, Verified 07/19/24 10:05) Hives umeclidinium [From Incruse Ellipta] Allergy (Mild, Verified 07/19/24 10:05) Hives EPINEPHRINE Allergy (Mild, Uncoded 07/04/24 10:10) RAPID HEARTBEAT HPI Comments Details: Very pleasant 78-year-old female who returns to the office today. She is status post panniculectomy performed on 06/2024. Reports approximately 30-35 mL serosang fluid in the collection bulb. Minor skin tear along the left abdomen. 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 Father No problems noted. Brother Diabetes Brother Diabetes Brother Cancer Heart disease Social History Are you a primary transitional care liaison to a significant other at home: No Do you presently have visiting nurse or other home services: No Alcohol intake: never Patient Tobacco Use Status: Former Tobacco user Tobacco use type: Cigarette Second Hand Smoke Exposure: No service: No Current occupational status: retired Physical Exam Skin Other: Transverse abdominal incision healing nicely. No evidence of dehiscence or infection. Umbilical incision shows slight dehiscence of approximately 1.5 mm from 02:00 to 5 o'clock position. Assessment & Plan Assessment & Plan (1) S/P panniculectomy: Code(s): Z98.890 - Other specified postprocedural states Category: Surgical Plan: Continue to monitor drain output. Likely remove next week. She may ambulate in her cul-de-sac. Continue antibiotics, meal plan. Return to clinic 1 week.
[2024-07-19 10:04] VITALS: BP 119/58; PULSE 64; TEMP 36.6; O2SAT 96
--- OUTSIDE RECORDS SUMMARY | 2024-07-19 10:23 | XMS_ITS | Continuity of Care Document ---
Author Organization [facility] Address [address] [facility] [address] [place] [address] Phone Care Team Providers Care Commissary Helper Name Role Phone Patricia OD, Crystal Unavailable [...] Providers Copied on Encounter [facility], [address] [place] [address] [address], [place], [place], [address] , tel: [phone] [facility] Diabetes (chief complaint) Type 2 diabetes mellitus without complicationsHyperten sive retinopathy of both eyesAge-related nuclear cataract, bilateralDry eye syndrome of bilateral lacrimal glandsVitreous degeneration, bilateralPresbyopia May- 0 Hoffert OD Crystal. [address], [place], [place], [address] , . tel: [phone] Referring Provider: Dionna Gomez OD L, [address], [place], [address] . tel:[phone] [facility], [address], [place], [place], [address] , tel: [phone] [facility] Diabetic eye exam (chief complaint) Decreased vision (chief complaint) Type 2 diabetes mellitus without complicationsAge-rela mariana nuclear cataract, bilateralVitreous degeneration, bilateralDry eye syndrome of bilateral lacrimal glands 9 Hoff[address] [place], [place], [place], [address] , . tel: [phone] Referring Provider: Dionna Gomez OD L, [address], [place], [address] . tel:[phone] [facility], [address], [place], [place], [address] , tel: [phone] [facility] Diabetic eye exam (chief complaint) Cataract (chief complaint) Dry eye (chief complaint) Age-related nuclear cataract, bilateralDry eye syndrome of bilateral lacrimal glandsVitreous detachment of right eyeVitreous detachment of left eyeType 2 diabetes mellitus without complications 7 [address], [place], [place], [address] , . tel: [phone] Referring Provider: Dionna Gomez OD L, [address], [place], [address] . tel:[phone] Offic/outpt E&m Estab Low-mod St Gan, [address], [address] [place] [address] , tel: [phone] [facility] Dry eye (chief complaint) Dry eye syndrome of bilateral lacrimal glands 7 Hoffert OD Crystal. [address], [address] [place] [address] , . tel: [phone] Referring Provider: Dionna Gomez OD L, [address] [place] [address], [address] . tel:[phone] [facility], [address] [place] [address], [address] [place] [address] , tel: [phone] [facility] dry eye (chief complaint) Dry eye syndrome of bilateral lacrimal glands 6 Hoffert OD Crystal. [address] [place] [address], [address] [place] [address] , . tel: [phone] Referring Provider: Dionna Gomez OD L, [address] [place] [address], [address] . tel:[phone] [facility], [address], [address] [place] [address] , tel: [phone] [facility] Dry eyes (chief complaint) Dry eye syndrome of bilateral lacrimal glands 6 Hoffert OD Crystal. [address], [address] [place] [address] , . tel: [phone] Referring Provider: Dionna [place] L, [address], [address] [place] [address] . tel:[phone] [facility], [address], [place], [place], [address] , tel: [phone] [facility] watery eyes (chief complaint) Diabetic eye exam (chief complaint) Dry eye syndrome of bilateral lacrimal glandsType 2 diabetes mellitus without complicationsType 2 diabetes mellitus with mild nonproliferative diabetic retinopathy without macular edema, left eyeVitreous degeneration, bilateralCataractAge- related nuclear cataract, bilateralDry eye syndrome of right lacrimal glandDry eye syndrome of left lacrimal gland Sondra Villareal. [address], [place], [place], [address] , . [phone] Referring Provider: Dionna Gomez OD Zenaida, [address] [facility] [address], [place], [address] . tel:[phone] Family History Family Member Type Diagnosis Age At Onset No Information Payers Payer name Insurance type Covered green party ID Melissa ochoa(s) Medicare MB [id number] Sqord [id number] Social History Type Description Quantity Date Captured [...] uses AT to alleviate. Diabetic eye exam Patient presen ts for [...] silicone punctual plugs discussed in detail. Petite [place] punctal plug OD and Small [place] punctal plug OS inserted in office without complication. One drop of ofloxacin was inserted in to the eye(s) prior to insertion. See consent sheet for plug specifications. Return in 1 week for follow up or sooner if any discomfort is noted. Related to Dry eye syndrome of bilateral lacrimal glands Return in 6 weeks [facility] for dry eye eval and repeat testing. [...] in the eyes. Diabetic report sent to PCP/milk runner. Yearly dilated fundus examination recommended. Related to [...] up - Return in 6 weeks with [facility] for dry eye eval and repeat [...]
== END 2024-07-19 10:28 | disposition home or self-care (01) ==
LOC: HO.HBS 09:45
PROVIDERS: PCP Family Medicine; Visit Provider Physician Assistant Surgical
DX: Z98.890 Other specified postprocedural states (principal)
CPT/HCPCS: 99024

== ENCOUNTER → 2024-07-19 09:45 | Outpatient (BNVA) | payer MEDICARE, SELFPAY | PROVIDERS: PCP Family Medicine; Visit Provider Physician Assistant Surgical | DX: T81.31XA Disruption of external operation (surgical) wound, not elsewhere classified, initial encounter (principal); X58.XXXA Exposure to other specified factors, initial encounter; Y93.9 Activity, unspecified; Y92.9 Unspecified place or not applicable; Y99.9 Unspecified external cause status; Z98.890 Other specified postprocedural states | CPT/HCPCS: 99212 ==

== ENCOUNTER 2024-07-25 09:42 | Outpatient (AMB) | payer MEDICARE, SELFPAY ==
[2024-07-25 09:55] VITALS: BP 147/63; PULSE 68; TEMP 36.8; O2SAT 97
--- NOTE | 2024-07-25 09:55 | A.OFFVIS_ITS ---
VS Expanded 07/25/24 09:55 BP 147/63 H Blood Pressure Location Rt brachial Blood Pressure Position Sitting Pulse 68 Pulse Source Pulse Oximeter Temp 98.2 F Temperature Source Temporal Artery Scan Pulse Oximetry 97 Oxygen Delivery Method Room Air Intake Visit Reasons: (OV) s/p Panniculectomy 06/20/24 Allergies azithromycin Allergy (Mild, Verified 07/25/24 09:56) Hives cyclosporine Allergy (Mild, Verified 07/25/24 09:56) Hives iodine Allergy (Mild, Verified 07/25/24 09:56) Anaphylaxis Latex, Natural Rubber Allergy (Mild, Verified 07/25/24 09:56) Anaphylaxis morphine Allergy (Mild, Verified 07/25/24 09:56) Headache Penicillins Allergy (Mild, Verified 07/25/24 09:56) Hives umeclidinium [From Incruse Ellipta] Allergy (Mild, Verified 07/25/24 09:56) Hives EPINEPHRINE Allergy (Mild, Uncoded 07/04/24 10:10) RAPID HEARTBEAT HPI Comments Details: Patient is a very pleasant 72-year-old female who returns to the office today. She is status post panniculectomy performed on 06/2024. She reports that she is having periods of ?good nights and ?bad nights?. The bad nights would consist of hypersensitivity to her skin. She reports no change in laundry detergent, she reports no dietary indiscretions or changes from her meal plan. She is not eating additional salty foods. On the nights that she has no trouble her output is approximately 20 mL in the collection bulb, on nights that she has more difficulty, output is approximately 40-50 mL of serous fluid. Otherwise denies any complaints. 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 Father No problems noted. Brother Diabetes Brother Diabetes Brother Cancer Heart disease Social History Are you a primary care navigator to a significant other at home: No Do you presently have visiting nurse or other home services: No Alcohol intake: never Patient Tobacco Use Status: Former Tobacco user Tobacco use type: Cigarette Second Hand Smoke Exposure: No service: No Current occupational status: retired Physical Exam Vital Signs: Last Vital Signs Temp 98.2 F 07/25/24 09:55 Pulse 68 07/25/24 09:55 BP 147/63 H 07/25/24 09:55 Pulse Ox 97 07/25/24 09:55 Oxygen Delivery Method Room Air 07/25/24 09:55 Skin Other: Transverse abdominal incision healing very nicely. Umbilical incision with slight crusting although no signs of infection. Assessment & Plan Assessment & Plan (1) S/P panniculectomy: Code(s): Z98.890 - Other specified postprocedural states Category: Surgical Plan: She does state that several days ago her umbilicus was itching, she scratched it and there was very minor self-limited bleeding. We will continue with the abdominal binder, no dressing to her transverse incision, 2 x 2 dressing to her umbilical incision, drain sponge to the exit site. Monitor output, return to clinic 1 week.
--- OUTSIDE RECORDS SUMMARY | 2024-07-25 10:49 | XMS_ITS | Continuity of Care Document ---
Author Organization [facility] Address [address] [place] [address] Phone Care Team Providers Care Assembler Motor Vehicle Name Role Phone Patricia OD, Crystal Unavailable [...] Diagnoses Date Provider Providers Copied on Encounter [facility], [address] [place] [address] [address], [place], [place], [id number] , tel: [phone] [facility] Diabetes (chief complaint) Type 2 diabetes mellitus without complicationsHyperten sive retinopathy of both eyesAge-related nuclear cataract, bilateralDry eye syndrome of bilateral lacrimal glandsVitreous degeneration, bilateralPresbyopia May- 0 Hoffert OD Crystal. [address], [place], [place], [id number] , . tel: [phone] Referring Provider: Dionna Gomez [place] L, [address], [place], [address] . tel:[phone] [facility], [address], [place], [place], [address] , tel: [phone] [facility] Diabetic eye exam (chief complaint) Decreased vision (chief complaint) Type 2 diabetes mellitus without complicationsAge-rela mariana nuclear cataract, bilateralVitreous degeneration, bilateralDry eye syndrome of bilateral lacrimal glands 9 Hoff[address] [place], [place], [place], [id number] , . tel: [phone] Referring Provider: Dionna Gomez OD L, [address], [place], [address] . tel:[phone] [facility], [address], [place], [place], [address] , tel: [phone] [facility] Diabetic eye exam (chief complaint) Cataract (chief complaint) Dry eye (chief complaint) Age-related nuclear cataract, bilateralDry eye syndrome of bilateral lacrimal glandsVitreous detachment of right eyeVitreous detachment of left eyeType 2 diabetes mellitus without complications 7 Hoff[address] [place], [place], [place], [id number] , . tel: [phone] Referring Provider: Dionna Gomez OD L, [address], [place], [address] . tel:[phone] Offic/outpt E&m Estab Low-mod [facility], [address], [address] [place] [address] , tel: [phone] [facility] Dry eye (chief complaint) Dry eye syndrome of bilateral lacrimal glands 7 Hoffert OD Crystal. [address], [address] [place] [address] , . tel: [phone] Referring Provider: Dionna Gomez OD L, [address] [place] [address], [address] . tel:[phone] [facility], [address] [place] [address], [address] [place] [address] , tel: [phone] [facility] dry eye (chief complaint) Dry eye syndrome of bilateral lacrimal glands 6 Hoffert OD Crystal. [address] [place] [address], [address] [place] [address] , . tel: [phone] Referring Provider: Dionna Gomez OD L, [address] [place] [address], [address] . tel:[phone] [facility], [address], [address] [place] [address] , tel: [phone] [facility] Dry eyes (chief complaint) Dry eye syndrome of bilateral lacrimal glands 6 Hoffert OD Crystal. [address], [address] [place] [address] , . tel: [phone] Referring Provider: Dionna Gomez [place] L, [address], [address] [place] [address] . tel:[phone] [facility], [address], [place], [place], [address] , tel: [phone] [facility] watery eyes (chief complaint) Diabetic eye exam (chief complaint) Dry eye syndrome of bilateral lacrimal glandsType 2 diabetes mellitus without complicationsType 2 diabetes mellitus with mild nonproliferative diabetic retinopathy without macular edema, left eyeVitreous degeneration, bilateralCataractAge- related nuclear cataract, bilateralDry eye syndrome of right lacrimal glandDry eye syndrome of left lacrimal gland Sondra Villareal. [address], [place], [place], [id number] , . [phone] Referring Provider: Dionna Gomez OD Zenaida, [address], [place], [address] . tel:[phone] Family History Family Member Type Diagnosis Age At Onset No Information Payers Payer name Insurance type Covered alliance party ID Melissa ochoa(s) Medicare MB [id number] [employer] [id number] Social History Type Description Quantity Date Captured [...] silicone punctual plugs discussed in detail. [place] punctal plug OD and [place] punctal plug OS inserted in office without complication. One drop of ofloxacin was inserted in to the eye(s) prior to insertion. See consent sheet for plug specifications. Return in 1 week for follow up or sooner if any discomfort is noted. Related to Dry eye syndrome of bilateral lacrimal glands Return in 6 weeks [facility] for dry eye eval and [...] in the eyes. Diabetic report sent to PCP/tufter operator. Yearly dilated fundus examination recommended. Related to [...] up - Return in 6 weeks with [facility] for dry eye eval and repeat [...]
== END 2024-07-25 10:26 | disposition home or self-care (01) ==
LOC: HO.HBS 09:42
PROVIDERS: PCP Family Medicine; Visit Provider Physician Assistant Surgical
DX: Z98.890 Other specified postprocedural states (principal)
CPT/HCPCS: 99024

== ENCOUNTER → 2024-07-25 09:42 | Outpatient (BNVA) | payer MEDICARE, SELFPAY | PROVIDERS: PCP Family Medicine; Visit Provider Physician Assistant Surgical | DX: Z48.817 Encounter for surgical aftercare following surgery on the skin and subcutaneous tissue (principal); Z98.890 Other specified postprocedural states | CPT/HCPCS: 99212 ==

== ENCOUNTER 2024-08-01 09:45 | Outpatient (AMB) | payer MEDICARE, SELFPAY ==
[2024-08-01 10:09] VITALS: BP 131/60; PULSE 57; TEMP 36.6; O2SAT 97; BMI 27.0
--- NOTE | 2024-08-01 10:09 | A.OFFVIS_ITS ---
VS Expanded 08/01/24 10:09 BP 131/60 Blood Pressure Location Lt brachial Blood Pressure Position Sitting Pulse 57 Pulse Source Pulse Oximeter Temp 97.9 F Temperature Source Temporal Artery Scan Pulse Oximetry 97 Oxygen Delivery Method Room Air Height 5 ft 4.5 in Weight 159 lb 9.6 oz BMI 27.0 Body Fat % 30.6 Body Fat Mass 48.8 Fat Free Mass 110.6 Visceral Fat Rating 9.0 Body Water % 48.7 Body Water Mass 77.6 Muscle Mass/Score 105.2 Basal Metabolic Rate/Score 1,466 Intake Visit Reasons: (OV) s/p Panniculectomy 06/20/24 Allergies azithromycin Allergy (Mild, Verified 07/25/24 09:56) Hives cyclosporine Allergy (Mild, Verified 07/25/24 09:56) Hives iodine Allergy (Mild, Verified 07/25/24 09:56) Anaphylaxis Latex, Natural Rubber Allergy (Mild, Verified 07/25/24 09:56) Anaphylaxis morphine Allergy (Mild, Verified 07/25/24 09:56) Headache Penicillins Allergy (Mild, Verified 07/25/24 09:56) Hives umeclidinium [From Incruse Ellipta] Allergy (Mild, Verified 07/25/24 09:56) Hives EPINEPHRINE Allergy (Mild, Uncoded 07/04/24 10:10) RAPID HEARTBEAT HPI Comments Details: Patient is a very pleasant 78-year-old female who returns to the office today in follow-up. She is post panniculectomy on 06/2024. She reports approximately 20 mL of serous fluid within the collection bulb. This is daily over the last 5 days. She offers no other complaints. 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 Father No problems noted. Brother Diabetes Brother Diabetes Brother Cancer Heart disease Social History Are you a primary career development associate to a significant other at home: No Do you presently have visiting nurse or other home services: No Alcohol intake: never Patient Tobacco Use Status: Former Tobacco user Tobacco use type: Cigarette Second Hand Smoke Exposure: No service: No Current occupational status: retired Physical Exam Vital Signs: Last Vital Signs Temp 97.9 F 08/01/24 10:09 Pulse 57 08/01/24 10:09 BP 131/60 08/01/24 10:09 Pulse Ox 97 08/01/24 10:09 Oxygen Delivery Method Room Air 08/01/24 10:09 BMI result Body Mass Index 27.0 Skin Other: Umbilical incision has a 2 mm area of dehiscence in the 6 o'clock position, otherwise viable. Transverse abdominal incision is healed very nicely. Assessment & Plan Assessment & Plan (1) S/P panniculectomy: Code(s): Z98.890 - Other specified postprocedural states Category: Surgical Plan: Drain was removed without incident. She was told no showering for 48 hours. She will continue antibiotics for another week. She will continue abdominal binder. Continue meal plan as directed by Dr. Restrepo. We will have her return to the office in approximately 2 weeks.
--- OUTSIDE RECORDS SUMMARY | 2024-08-01 10:52 | XMS_ITS | Continuity of Care Document ---
Author Organization [facility] Address [address] [place] [address] Phone Care Team Providers Care Crossing Watchman Name Role Phone Patricia OD, Crystal Unavailable [...] Provider Providers Copied on Encounter [facility], [address] [place] [address] [address], [place], [place], [id number] , tel: [phone] [facility] Diabetes (chief complaint) Type 2 diabetes mellitus without complicationsHyperten sive retinopathy of both eyesAge-related nuclear cataract, bilateralDry eye syndrome of bilateral lacrimal glandsVitreous degeneration, bilateralPresbyopia May- 0 Hoffert OD Crystal. [address], [place], [place], [id number] , . tel: [phone] Referring Provider: Dionna Gomez [place] L, [address], [place], [address] . tel:[phone] [facility], [address], [place], [place], [address] , tel: [phone] [facility] Diabetic eye exam (chief complaint) Decreased vision (chief complaint) Type 2 diabetes mellitus without complicationsAge-rela mariana nuclear cataract, bilateralVitreous degeneration, bilateralDry eye syndrome of bilateral lacrimal glands 9 Hoffert OD [place], [place], [place], [address] , . tel: [phone] Referring Provider: Dionna Gomez OD L, [address], [place], [address] . tel:[phone] [facility], [address], [place], [place], [address] , tel: [phone] [facility] Diabetic eye exam (chief complaint) Cataract (chief complaint) Dry eye (chief complaint) Age-related nuclear cataract, bilateralDry eye syndrome of bilateral lacrimal glandsVitreous detachment of right eyeVitreous detachment of left eyeType 2 diabetes mellitus without complications 7 Hoffert OD Crystal[address], [place], [place], [id number] , . tel: [phone] Referring Provider: Dionna Gomez OD L, [address], [place], [address] . tel:[phone] Offic/outpt E&m Estab Low-mod [facility], [address], [address] [place] [address] , tel: [phone] [facility] Dry eye (chief complaint) Dry eye syndrome of bilateral lacrimal glands 7 Hoffert OD Crystal. [address], [address] [place] [address] , . tel: [phone] Referring Provider: Dionna Gomez OD L, [address] [place] [address], [address] . tel:[phone] [facility], [address] [place] [address], [address] [place] [address] , tel: [phone] [facility] dry eye (chief complaint) Dry eye syndrome of bilateral lacrimal glands 6 Hoffert OD Crystal. [address] [place] [address], [address] [place] [address] , . tel: [phone] Referring Provider: Dionna Gomez OD L, [address] [place] [address], [address] . tel:[phone] [facility], [address], [address] [place] [address] , tel: [phone] [facility] Dry eyes (chief complaint) Dry eye syndrome of bilateral lacrimal glands 6 Hoffert OD [place]. [address], [address] [place] [address] , . tel: [phone] Referring Provider: Dionna Gomez OD L, [address], [address] [place] [address] . tel:[phone] [facility], [address], [place], [place], [id number] , tel: [phone] [facility] watery eyes (chief complaint) Diabetic eye exam (chief complaint) Dry eye syndrome of bilateral lacrimal glandsType 2 diabetes mellitus without complicationsType 2 diabetes mellitus with mild nonproliferative diabetic retinopathy without macular edema, left eyeVitreous degeneration, bilateralCataractAge- related nuclear cataract, bilateralDry eye syndrome of right lacrimal glandDry eye syndrome of left lacrimal gland Sondra Villareal. [address], [place], [place], [address] , . [phone] Referring Provider: Dionna Gomez OD Zenaida, [address] [facility], [place], [address] . tel:[phone] Family History Family Member Type Diagnosis Age At Onset No Information Payers Payer name Insurance type Covered libertarian ID Melissa ochoa(s) Medicare MB [id number] [employer] [id number] Social History Type Description Quantity Date Captured [...] Return in 1 week luis eduardo jason Patriica OD, Crystal for dry eye check. Related [...] silicone punctual plugs discussed in detail. Petite [place] punctal plug OD and Small [place] punctal plug OS inserted in office without complication. One drop of ofloxacin was inserted in to the eye(s) prior to insertion. See consent sheet for plug specifications. Return in 1 week for follow up or sooner if any discomfort is noted. Related to Dry eye syndrome of bilateral lacrimal glands Return in 6 weeks [facility] for dry eye eval and repeat [...] in the eyes. Diabetic report sent to PCP/fur blender. Yearly dilated fundus examination recommended. Related to [...] up - Return in 6 weeks with [facility] for dry eye eval and [...]
== END 2024-08-01 10:36 | disposition home or self-care (01) ==
LOC: HO.HBS 09:46
PROVIDERS: PCP Family Medicine; Visit Provider Physician Assistant Surgical
DX: Z98.890 Other specified postprocedural states (principal)
CPT/HCPCS: 99024

== ENCOUNTER → 2024-08-01 09:45 | Outpatient (BNVA) | payer MEDICARE, SELFPAY | PROVIDERS: PCP Family Medicine; Visit Provider Physician Assistant Surgical | DX: T81.31XA Disruption of external operation (surgical) wound, not elsewhere classified, initial encounter (principal); X58.XXXA Exposure to other specified factors, initial encounter; Y93.9 Activity, unspecified; Y92.9 Unspecified place or not applicable; Y99.9 Unspecified external cause status; Z79.2 Long term (current) use of antibiotics; Z98.84 Bariatric surgery status; Z98.890 Other specified postprocedural states | CPT/HCPCS: 99212 ==

== ENCOUNTER 2024-08-22 08:47 | Outpatient (AMB) | payer MEDICARE, SELFPAY ==
--- NOTE | 2024-08-22 08:56 | MHC.OFFVISWM ---
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 Allergies azithromycin Allergy (Mild, Verified 07/25/24 09:56) Hives cyclosporine Allergy (Mild, Verified 07/25/24 09:56) Hives iodine Allergy (Mild, Verified 07/25/24 09:56) Anaphylaxis Latex, Natural Rubber Allergy (Mild, Verified 07/25/24 09:56) Anaphylaxis morphine Allergy (Mild, Verified 07/25/24 09:56) Headache Penicillins Allergy (Mild, Verified 07/25/24 09:56) Hives umeclidinium [From Incruse Ellipta] Allergy (Mild, Verified 07/25/24 09:56) Hives EPINEPHRINE Allergy (Mild, Uncoded 07/04/24 10:10) RAPID HEARTBEAT Medication List - Last Reconciled 08/22/24 by LYNN Cortes albuterol sulfate 90 mcg/actuation 2 inhalations inhalation Q4-6H PRN albuterol sulfate 2.5 mg inhalation BID PRN amlodipine 5 mg PO DAILY atorvastatin (Lipitor) 40 mg PO QPM blood sugar diagnostic (FreeStyle Lite Strips) As directed cetirizine (Zyrtec) 10 mg PO DAILY chlorthalidone 50 mg PO DAILY clotrimazole 1% 1 appl topical BID PRN desoximetasone 0.25% 1 appl topical DAILY PRN docusate sodium (Colace) 400 mg PO BID docusate sodium (Colace) 100 mg PO DAILY econazole nitrate 1% 1 appl topical DAILY PRN epinephrine (EpiPen) 0.3 mg IM Q4H PRN fluocinonide 0.05% 1 appl topical BID-QID PRN fluticasone propion-salmeterol 230-21 mcg/actuation 1 puff inhalation BID hydroxyzine HCl 25 mg PO BEDTIME losartan 100 mg PO DAILY [magnesium 1 tab PO BID] ondansetron 4 mg PO Q12H polyethylene glycol 3350 (Miralax) 17 grams PO DAILY trazodone 100 mg PO BEDTIME triamcinolone acetonide 0.1% 1 appl topical BID-TID PRN zinc gluconate 50 mg PO DAILY HPI Comments Details: Patient is a very pleasant 78-year-old female who returns to the office today in follow-up. She is approximately 2 months post panniculectomy performed on 06/2024. She states she has been using unjury protein powder although snacking at night and not having as structured of a meal plan. We will give her a meal plan. She denies any pain of the abdomen. She is doing very well postoperatively. 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 Father No problems noted. Brother Diabetes Brother Diabetes Brother Cancer Heart disease Social History Are you a primary resident care aide to a significant other at home: No Do you presently have visiting nurse or other home services: No Alcohol intake: never Patient Tobacco Use Status: Former Tobacco user Tobacco use type: Cigarette Second Hand Smoke Exposure: No service: No Current occupational status: retired Physical Exam Skin Other: Transverse and umbilical incisions have healed nicely. Assessment & Plan Assessment & Plan (1) S/P panniculectomy: Code(s): Z98.890 - Other specified postprocedural states Category: Surgical Plan: Doing very well postoperatively. She may return to the gym although no lifting greater than 10 lb and no abdominal work or core work. We will recommend changing her meal plan to include: unjury 1 scoop (21 gm protein) Another shake or protein bar and shake with half scoop Meal with 6 forks protein and 6 forks vegetables. We will have her return to the office in approximately 1 month. Encouraged to text weights weekly and with any questions or concerns.
--- OUTSIDE RECORDS SUMMARY | 2024-08-22 08:59 | XMS_ITS | Continuity of Care Document ---
Author Organization [facility] Address [address] [facility] [address] [place] [address] Phone Care Team Providers Care Crester Name Role Phone Patricia OD, Crystal Unavailable [...] Diagnoses Date Provider Providers Copied on Encounter [facility], [address] [place] [address] [address], [place], [place], [id number] , tel: [phone] [facility] Diabetes (chief complaint) Type 2 diabetes mellitus without complicationsHyperten sive retinopathy of both eyesAge-related nuclear cataract, bilateralDry eye syndrome of bilateral lacrimal glandsVitreous degeneration, bilateralPresbyopia May- 0 Hoffert [place] [facility] [address], [place], [place], [id number] , . tel: [phone] Referring Provider: Dionna Gomez [place] L, [address], [place], [address] . tel:[phone] [facility], [address], [place], [place], [address] , tel: [phone] [facility] Diabetic eye exam (chief complaint) Decreased vision (chief complaint) Type 2 diabetes mellitus without complicationsAge-rela mariana nuclear cataract, bilateralVitreous degeneration, bilateralDry eye syndrome of bilateral lacrimal glands 9 Hoffert OD [place]. [address], [place], [place], [id number] , . tel: [phone] Referring Provider: Dionna Gomez OD L, [address], [place], [address] . tel:[phone] [facility], [address], [place], [place], [address] , tel: [phone] [facility] Diabetic eye exam (chief complaint) Cataract (chief complaint) Dry eye (chief complaint) Age-related nuclear cataract, bilateralDry eye syndrome of bilateral lacrimal glandsVitreous detachment of right eyeVitreous detachment of left eyeType 2 diabetes mellitus without complications 7 Hoffert [place], [place], [place], [address] , . tel: [phone] Referring Provider: Dionna Gomez [place] L, [address], [place], [address] . tel:[phone] Offic/outpt E&m Estab Low-mod [facility], [address], [address] [place] [address] , tel: [phone] [facility] Dry eye (chief complaint) Dry eye syndrome of bilateral lacrimal glands 7 Hoffert OD Crystal. [address], [address] [place] [address] , . tel: [phone] Referring Provider: Dionna Gomez OD L, [address] [place] [address], [address] . tel:[phone] [facility], [address] [place] [address], [address] [place] [address] , tel: [phone] [facility] dry eye (chief complaint) Dry eye syndrome of bilateral lacrimal glands 6 Hoffert OD Crystal. [address] [place] [address], [address] [place] [address] , . tel: [phone] Referring Provider: Dionna Gomez OD L, [address] [place] [address], [address] . tel:[phone] [facility], [address], [address] [place] [address] , tel: [phone] [facility] Dry eyes (chief complaint) Dry eye syndrome of bilateral lacrimal glands 6 Hoffert OD Crystal. [address], [address] [place] [address] , . tel: [phone] Referring Provider: Dionna Gomez [place], [address], [address] [place] [address] . tel:[phone] [facility], [address], [place], [place], [address] , tel: [phone] [facility] watery eyes (chief complaint) Diabetic eye exam (chief complaint) Dry eye syndrome of bilateral lacrimal glandsType 2 diabetes mellitus without complicationsType 2 diabetes mellitus with mild nonproliferative diabetic retinopathy without macular edema, left eyeVitreous degeneration, bilateralCataractAge- related nuclear cataract, bilateralDry eye syndrome of right lacrimal glandDry eye syndrome of left lacrimal gland Sondra Villareal. [address], [place], [place], [id number] , . [phone] Referring Provider: Dionna Gomez OD Zenaida, [address] [facility] [address], [place], [address] . tel:[phone] Family History Family Member Type Diagnosis Age At Onset No Information Payers Payer name Insurance type Covered constitution party ID Melissa ochoa(s) Medicare MB [id number] [employer] [id number] Social History Type Description Quantity Date Captured [...] silicone punctual plugs discussed in detail. Petite [place] punctal plug OD and Small [place] punctal plug OS inserted in office without complication. One drop of ofloxacin was inserted in to the eye(s) prior to insertion. See consent sheet for plug specifications. Return in 1 week for follow up or sooner if any discomfort is noted. Related to Dry eye syndrome of bilateral lacrimal glands Return in 6 weeks [facility] for dry eye eval and repeat [...] in the eyes. Diabetic report sent to PCP/color blender. Yearly dilated fundus examination recommended. Related [...] up - Return in 6 weeks with [facility] for dry eye eval and repeat [...]
[2024-08-22 09:07] VITALS: BP 143/63; PULSE 67; TEMP 36.3; O2SAT 96; BMI 27.1
== END 2024-08-22 09:33 | disposition home or self-care (01) ==
LOC: HO.HBS 08:48
PROVIDERS: PCP Family Medicine; Visit Provider Physician Assistant Surgical
DX: Z98.890 Other specified postprocedural states (principal)
CPT/HCPCS: 99024

== ENCOUNTER → 2024-08-22 08:47 | Outpatient (BNVA) | payer MEDICARE, SELFPAY | PROVIDERS: PCP Family Medicine; Visit Provider Physician Assistant Surgical | DX: Z98.890 Other specified postprocedural states (principal) | CPT/HCPCS: 99212 ==

== ENCOUNTER 2024-09-30 08:57 | Outpatient (AMB) | payer MEDICARE, SELFPAY ==
--- NOTE | 2024-09-30 09:00 | A.OFFVIS_ITS ---
VS Expanded 09/30/24 09:11 BP 141/65 H Blood Pressure Location Rt brachial Blood Pressure Position Sitting Pulse 54 Pulse Source Pulse Oximeter Temp 96.8 F Temperature Source Temporal Artery Scan Pulse Oximetry 54 L Oxygen Delivery Method Room Air Height 5 ft 4.5 in Weight 160 lb 9.6 oz BMI 27.1 Body Fat % 33.2 Body Fat Mass 53.4 Fat Free Mass 107.2 Visceral Fat Rating 10.0 Body Water % 46.8 Body Water Mass 5.2 Muscle Mass/Score 101.6 Basal Metabolic Rate/Score 1,431 Intake Visit Reasons: (OV) s/p Panniculectomy 06/20/24 Allergies azithromycin Allergy (Mild, Verified 09/30/24 09:06) Hives cyclosporine Allergy (Mild, Verified 09/30/24 09:06) Hives iodine Allergy (Mild, Verified 09/30/24 09:06) Anaphylaxis Latex, Natural Rubber Allergy (Mild, Verified 09/30/24 09:06) Anaphylaxis morphine Allergy (Mild, Verified 09/30/24 09:06) Headache Penicillins Allergy (Mild, Verified 09/30/24 09:06) Hives umeclidinium (From Incruse Ellipta) Allergy (Mild, Verified 09/30/24 09:06) Hives EPINEPHRINE Allergy (Mild, Uncoded 07/04/24 10:10) RAPID HEARTBEAT HPI Comments Details: Patient is a very pleasant 78-year-old female who returns to the office today in follow-up she is status post panniculectomy on 06/2024 and sleeve gastrectomy performed by Dr. White on 08/03/2022. She has done very well overall. Weight today is 160.6 lb with a BMI of 27.1. She is doing very well overall. Has no significant complaints. She is happy with the results of her panniculectomy. Meal plan: Unjury protein shake, 1 scoop in the morning, half scoop mid day and a meal in the evening with 6 forks of protein and 8 forks of vegetables. Exercise plan: Walking 7 miles 3-4 times per week and she will be returning to the gym. COUNTS INCLUDE 234 BEDS AT THE [facility] Medical History Back pain Hiatal hernia GERD (gastroesophageal reflux disease) Dry eyes Osteoarthritis Eczema Diabetes Asthma HTN (hypertension) Obesity Surgical History S/P panniculectomy History of sleeve gastrectomy (08/03/22) Hx of oral surgery History of eyelid surgery Hx of colonoscopy Hx of cholecystectomy Hx of unilateral salpingectomy Hx of unilateral oophorectomy Hx of tonsillectomy Hx of appendectomy Family History Mother No problems noted. Father No problems noted. Brother Diabetes Brother Diabetes Brother Cancer Heart disease Social History Are you a primary pet caregiver to a significant other at home: No Do you presently have visiting nurse or other home services: No Alcohol intake: never Patient Tobacco Use Status: Former Tobacco user Tobacco use type: Cigarette Second Hand Smoke Exposure: No service: No Current occupational status: retired Physical Exam Const General: healthy appearing and no acute distress Resp Effort & Inspection: normal respiratory effort Auscultation: clear to auscultation bilaterally Cardio Rate: regular rate Rhythm: regular rhythm GI Auscultation: normal bowel sounds Skin Other: Transverse abdominal incisions healed perfectly Extrem General: Yes normal to inspection Assessment & Plan Assessment & Plan (1) S/P laparoscopic sleeve gastrectomy: Code(s): Z98.84 - Bariatric surgery status Category: Surgical Plan: Continue current meal plan. She may return to the gym and continue walking. Encouraged to do some form of exercise daily. (2) S/P panniculectomy: Code(s): Z98.890 - Other specified postprocedural states Category: Surgical Plan: Incisions have healed perfectly. She has no further restrictions.
[2024-09-30 09:11] VITALS: BP 141/65; PULSE 54; TEMP 36; O2SAT 54; BMI 27.1
== END 2024-09-30 09:24 | disposition home or self-care (01) ==
LOC: HO.HBS 08:57
PROVIDERS: PCP Family Medicine; Visit Provider Physician Assistant Surgical
DX: E66.3 Overweight (principal); Z68.27 Body mass index [BMI] 27.0-27.9, adult; Z90.3 Acquired absence of stomach [part of]; Z98.84 Bariatric surgery status
CPT/HCPCS: 99213

== ENCOUNTER → 2024-09-30 08:57 | Outpatient (BNVA) | payer MEDICARE, SELFPAY | PROVIDERS: PCP Family Medicine; Visit Provider Physician Assistant Surgical | DX: Z98.890 Other specified postprocedural states (principal); Z98.84 Bariatric surgery status | CPT/HCPCS: 99212 ==

== ENCOUNTER 2024-11-22 09:25 | Outpatient (AMB) | payer MEDICARE, SELFPAY ==
--- OUTSIDE RECORDS SUMMARY | 2019-05-30 10:55 | XMS_ITS | Continuity of Care Document ---
Author Organization [facility] Address [address] [facility] [address] [place] [address] Phone Care Team Providers Care Judo Instructor Name Role Phone Patricia OD, Crystal Unavailable Unavailable Allergies, Adverse Reactions, Alerts Substance Reaction Status Criticality epinephrine Active No Information cyclosporine Hives/Skin Rash Active No Informati on IODINE Active No Information morphine Active No Information azithromycin Active No Information latex Active No Information PENICILLIN Active No Information Medications Medication Instructions Dosage Effective Dates (start - stop) Status Comments zinc 50 mg tablet - Active Multi Vitamin 9 mg iron/15 mL oral liquid - Active Vitamin D3 1,000 unit tablet take 1 tablet by oral route every day 1 tablet - Active losartan 100 mg tablet take 1 tablet by oral route every day 100 MG - Active Nexium 40 mg capsule,delayed release take 1 capsule by oral route every day 40 MG - Active hydroxyzine HCl 25 mg tablet take 1 tablet by oral route 3 times every day as needed 25 MG - Active Zyrtec 10 mg tablet take 1 tablet by oral route every day 10 MG - Active cod liver oil 240 mg-1,000 mg capsule - Active CALCIUM SOFT CHEW (unknown strength) Not Available - Active vitamin E 400 unit capsule take 1 capsule by oral route every day 1 capsule - Active econazole 1 % topical cream [...] Diagnoses Date Provider Providers Copied on Encounter [facility], [address] [place] [address] [address], [place], [place], [id number] , tel: [phone] [facility] Diabetes (chief complaint) Type 2 diabetes mellitus without complicationsHyperten sive retinopathy of both eyesAge-related nuclear cataract, bilateralDry eye syndrome of bilateral lacrimal glandsVitreous degeneration, bilateralPresbyopia May- 0 Hoffert OD [place]. [address] [facility] [address], [place], [place], [id number] , . tel: [phone] Referring Provider: Dionna [place], [address], [place], [address] . tel:[phone] [facility], [address], [place], [place], [id number] , tel: [phone] [facility] Diabetic eye exam (chief complaint) Decreased vision (chief complaint) Type 2 diabetes mellitus without complicationsAge-rela mariana nuclear cataract, bilateralVitreous degeneration, bilateralDry eye syndrome of bilateral lacrimal glands 9 Hoffert OD [place]. [address], [place], [place], [id number] , . tel: [phone] Referring Provider: Dionna Gomez [place] L, [address], [place], [address] . tel:[phone] [facility], [address], [place], [place], [id number] , tel: [phone] [facility] Diabetic eye exam (chief complaint) Cataract (chief complaint) Dry eye (chief complaint) Age-related nuclear cataract, bilateralDry eye syndrome of bilateral lacrimal glandsVitreous detachment of right eyeVitreous detachment of left eyeType 2 diabetes mellitus without complications [address] [place], [place], [place], [id number] , . tel: [phone] Referring Provider: Dionna Gomez [place] L, [address], [place], [address] . tel:[phone] Offic/outpt E&m Estab Low-mod [facility], [address], [address] [place] [address] , tel: [phone] [facility] Dry eye (chief complaint) Dry eye syndrome of bilateral lacrimal glands 7 Hoffert OD [place]. [address], [address] [place] [address] , . tel: [phone] Referring Provider: Dionna Gomez OD L, [address] [place] [address], [address] . tel:[phone] [facility], [address] [place] [address], [address] [place] [address] , tel: [phone] [facility] dry eye (chief complaint) Dry eye syndrome of bilateral lacrimal glands 6 Hoffert OD Crystal. [address] [place] [address], [address] [place] [address] , . tel: [phone] Referring Provider: Dionna Gomez OD L, [address] [place] [address], [address] . tel:[phone] [facility], [address], [address] [place] [address] , tel: [phone] [facility] Dry eyes (chief complaint) Dry eye syndrome of bilateral lacrimal glands 6 Hoffert OD Crystal. [address], [address] [place] [address] , . tel: [phone] Referring Provider: Dionna Gomez OD L, [address], [address] [place] [address] . tel:[phone] [facility], [address], [place], [place], [address] , tel: [phone] [facility] watery eyes (chief complaint) Diabetic eye exam (chief complaint) Dry eye syndrome of bilateral lacrimal glandsType 2 diabetes mellitus without complicationsType 2 diabetes mellitus with mild nonproliferative diabetic retinopathy without macular edema, left eyeVitreous degeneration, bilateralCataractAge- related nuclear cataract, bilateralDry eye syndrome of right lacrimal glandDry eye syndrome of left lacrimal gland Sondra Villareal. [address], [place], [place], [id number] , . [phone] Referring Provider: Dionna Gomez OD Zenaida, [address] [facility] [address], [place], [address] . tel:[phone] Family History Family Member Type Diagnosis Age At Onset No Information Payers Payer name Insurance type Covered constitution party ID Melissa ochoa(s) Medicare MB [id number] Fineline [id number] Social History Type Description Quantity Date Captured [...] readings have been higher than normal lately. Decreased vision The 72 year old female patient presents for an evaluation of decrease vision OU.Feels that there has been a slight change to DVA. Feels vision is slightly blurry and tries not to drive at night. Notes itchy, dry eyes and uses AT to alleviate. Diabetic eye exam The 72 year ol d female patient presents for a 1 year follow up of diabetes type II.Monitors blood sugar regularly and last A1C was 6.2. Vision adequate for daily tasks, but notices slight decrease in distance vision. Cataract Patient presents with Cataracts OU. Patient [...] - Return in 1 year with Dionna Gmoez OD for Complete Dilated Fundus Exam. Related [...] silicone punctual plugs discussed in detail. Petite [place] punctal plug OD and Small [place] punctal plug OS inserted in office without complication. One drop of ofloxacin was inserted in to the eye(s) prior to insertion. See consent sheet for plug specifications. Return in 1 week for follow up or sooner if any discomfort is noted. Related to Dry eye syndrome of bilateral lacrimal glands Return in 6 weeks [facility] for dry eye eval and repeat testing. [...] in the eyes. 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 Yearly dilated fundus examination recommended. Related to [...] up - Return in [address] [facility] for dry eye eval and repeat testing. [...]
--- NOTE | 2024-11-22 09:27 | A.OFFVIS_ITS ---
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: No Allergies azithromycin Allergy (Mild, Verified 11/22/24 09:30) Hives cyclosporine Allergy (Mild, Verified 11/22/24 09:30) Hives iodine Allergy (Mild, Verified 11/22/24 09:30) Anaphylaxis Latex, Natural Rubber Allergy (Mild, Verified 11/22/24 09:30) Anaphylaxis morphine Allergy (Mild, Verified 11/22/24 09:30) Headache Penicillins Allergy (Mild, Verified 11/22/24 09:30) Hives umeclidinium (From Incruse Ellipta) Allergy (Mild, Verified 11/22/24 09:30) Hives EPINEPHRINE Allergy (Mild, Uncoded 07/04/24 10:10) RAPID HEARTBEAT Medication List - Last Reconciled 11/22/24 by LYNN Cortes albuterol sulfate 90 mcg/actuation 2 inhalations inhalation Q4-6H PRN albuterol sulfate 2.5 mg inhalation BID PRN amlodipine 5 mg PO DAILY atorvastatin (Lipitor) 40 mg PO QPM blood sugar diagnostic (FreeStyle Lite Strips) As directed cetirizine (Zyrtec) 10 mg PO DAILY chlorthalidone 50 mg PO DAILY clotrimazole 1% 1 appl topical BID PRN desoximetasone 0.25% 1 appl topical DAILY PRN docusate sodium (Colace) 400 mg PO BID docusate sodium (Colace) 100 mg PO DAILY econazole nitrate 1% 1 appl topical DAILY PRN epinephrine (EpiPen) 0.3 mg IM Q4H PRN fluocinonide 0.05% 1 appl topical BID-QID PRN fluticasone propion-salmeterol 230-21 mcg/actuation 1 puff inhalation BID hydroxyzine HCl 25 mg PO BEDTIME losartan 100 mg PO DAILY [magnesium 1 tab PO BID] ondansetron 4 mg PO Q12H polyethylene glycol 3350 (Miralax) 17 grams PO DAILY trazodone 100 mg PO BEDTIME triamcinolone acetonide 0.1% 1 appl topical BID-TID PRN zinc gluconate 50 mg PO DAILY HPI Comments Details: This?a?79?yo female who is s/p LSG without hiatal hernia repair on?08/03/[address] White. Presents for 2 year 2 month post op visit. She is also status post panniculectomy performed on 06/20/[address] Restrepo. Weight today is 163 pounds, with a BMI of 27.5. There has been a 72.4 pound weight loss,(initial weight 235.4 pounds) since starting the program on 05/02/2022 reflecting a 30.7 % total body weight loss and a weight loss of 47 pounds since surgery (operative weight 210 pounds) reflecting a 22.3 % TBWL since surgery. No complaints of nausea, emesis, abdominal pain or reflux. Reports infrequent but normal bowel movements every 1-2 days and uses stool softeners regularly. Meal plan: Premier protein 2 scoops at 6-8 unjury fruit shake 1 scoop (21 gm) meal with 6 forks protein and 6 forks veg snacks at night popcorn, crackers or fruit 40 oz fluids Exercise plan: walk 5 mi daily PFSH Medical History Back pain Hiatal hernia GERD (gastroesophageal reflux disease) Dry eyes Osteoarthritis Eczema Diabetes Asthma HTN (hypertension) Obesity Surgical History Hx of bladder endoscopy S/P panniculectomy History of sleeve gastrectomy (08/03/22) Hx of oral surgery History of eyelid surgery Hx of colonoscopy Hx of cholecystectomy Hx of unilateral salpingectomy Hx of unilateral oophorectomy Hx of tonsillectomy Hx of appendectomy Family History Mother No problems noted. Father No problems noted. Brother Diabetes Brother Diabetes Brother Cancer Heart disease Social History Are you a primary childcare administrator to a significant other at home: No Do you presently have visiting nurse or other home services: No Alcohol intake: never Patient Tobacco Use Status: Former Tobacco user Tobacco use type: Cigarette Second Hand Smoke Exposure: No service: No Current occupational status: retired Physical Exam Const General: healthy appearing and no acute distress Resp Effort & Inspection: normal respiratory effort Auscultation: clear to auscultation bilaterally Cardio Rate: regular rate Rhythm: regular rhythm GI Auscultation: normal bowel sounds Extrem General: Yes normal to inspection Assessment & Plan Assessment & Plan (1) S/P laparoscopic sleeve gastrectomy: Code(s): Z98.84 - Bariatric surgery status Category: Surgical Plan: Premier protein 2 scoops at 6-8 unjury fruit shake 1/2 scoop (21 gm) meal with 6 forks protein and 6 forks veg No further snacking at night. She may have half an apple if necessary although recommend increasing water intake Return to the gym as she had done previously, goal of burning 300 calories per day. Follow-up in the office 3-4 months
--- OUTSIDE RECORDS SUMMARY | 2024-11-22 09:31 | XMS_ITS | Encounter Summary ---
Author Organization [facility] Address [address] [facility] [address] [place] [address] Phone Care Team Providers Care Sorter/Assay Tech Name Role Phone Elyse Vasquez MD Primary Care Provider [phone] Encounter Details Date Type Department Care Team (Late st Contact Info) Description 09/15/2021 Procedure Pass [address] [address] Social History Tobacco Use Types Packs/Day Years Used Date Smoking Tobacco: Former Cigarettes 0 11/01/1966 - 05/04/1996 Smokeless Tobacco: Never Alcohol Use Standard Drinks/Week Comments Never 0 (1 standard drink = 0.6 oz pur e alcohol) Comments No Sex and Gender Information Value Date Recorded Sex Assigned at Female 02/09/2019 6:21 AM EST Legal Sex Female 11:29 AM EDT Gender Identity Female 02/09/2019 6:21 AM EST Sexual Orientation Straight 02/09/2019 6 :21 AM EST documented as of this encounter Plan of Treatment Upcoming Encounters Date Type Department Care Team (Late st Contact Info) Description 09/27/2024 Procedure Pass [address] [address] 05/06/2025 10:15 AM EST Appointment [address] [address] Elyse Vasquez MD [address] [place] [address] [phone] [email or web address] documented as of this encounter Visit Diagnoses Not on filedocumented in this encounter Care Teams Sorter/Assay Tech Relationship Specialty Start Date End Date Elyse Vasquez MD [email or web address] PCP - General Family Medicine 10/10/17 documented as of this encounter Additional Source Comments The information contained in this document represents components of the legal health record. It is not the complete legal health record.[facility]
[2024-11-22 09:36] VITALS: BP 156/73; PULSE 59; TEMP 36.1; O2SAT 95; BMI 27.5
== END 2024-11-22 09:55 | disposition home or self-care (01) ==
LOC: HO.HBS 09:26
PROVIDERS: PCP Family Medicine; Visit Provider Physician Assistant Surgical
DX: E66.3 Overweight (principal); Z68.27 Body mass index [BMI] 27.0-27.9, adult; Z90.3 Acquired absence of stomach [part of]; Z98.84 Bariatric surgery status
CPT/HCPCS: 99213; G2211

== ENCOUNTER → 2024-11-22 09:25 | Outpatient (BNVA) | payer MEDICARE, SELFPAY | PROVIDERS: PCP Family Medicine; Visit Provider Physician Assistant Surgical | DX: Z98.84 Bariatric surgery status (principal) | CPT/HCPCS: 99212 ==

== ENCOUNTER 2025-03-05 11:48 | Outpatient (AMB) | payer MEDICARE, SELFPAY ==
--- OUTSIDE RECORDS SUMMARY | 2019-05-30 09:55 | XMS_ITS | Continuity of Care Document ---
Author Organization [facility] Address [address] [address] [place] [address] Phone Care Team Providers Care Research Quality Assurance Analyst Name Role Phone Patricia OD, Crystal Unavailable Unavailable Allergies, Adverse Reactions, Alerts Substance Reaction Status Criticality epinephrine Active No Information cyclosporine Hives/Skin Rash Active No Informati on IODINE Active No Information morphine Active No Information azithromycin Active No Information latex Active No Information PENICILLIN Active No Information Medications Medication Instructions Dosage Effective Dates (start - stop) Status Comments hydroxyzine HCl 25 mg tablet take 1 tablet by oral route 3 times every day as needed 25 MG - Active Nexium 40 mg capsule,delayed release take 1 capsule by oral route every day 40 MG - Active losartan 100 mg tablet take 1 tablet by oral route every day 100 MG - Active Vitamin D3 1,000 unit tablet take 1 tablet by oral route every day 1 tablet - Active Multi Vitamin 9 mg iron/15 mL oral liquid - Active zinc 50 mg tablet - Active vitamin E 400 unit capsule take 1 capsule by oral route every day 1 capsule - Active CALCIUM SOFT CHEW (unknown strength) Not Available - Active cod liver oil 240 mg-1,000 mg capsule - Active Zyrtec 10 mg tablet take 1 tablet by oral route every day 10 MG - Active econazole 1 % topical cream apply by topical route 2 times every day to the affected and surrounding areas of skin 0.00 - Active Novolog Flexpen 100 unit/mL subcutaneous inject by subcutaneous route per prescriber's instructions. Insulin dosing requires individualization. 0.00 - Active Nexium 40 mg capsule,delayed release take 1 capsule by oral route every day 40 MG - Active meloxicam 15 mg tablet take 1 tablet by oral route every day 15 MG - Active Lipitor 40 mg tablet take 1 tablet by oral route every day 40 MG - Active Levemir Flexpen 100 unit/mL (3 mL) solution subcutaneous insulin pen inject by subcutaneous route per prescriber's instructions. Insulin dosing requires individualization. - Active Januvia 100 mg tablet take 1 tablet by oral route every day 100 MG - Active hydrochlorothiazide 25 mg tablet take 1 tablet by oral route every day 25 MG - Active fluocinonide 0.05 % topical gel apply by topical route 2 times every day to the affected area(s) 0.00 - Active EpiPen 2-Vini 0.3 mg/0.3 mL injection, auto-injector inject 0.3 milliliter by intramuscular route once as needed for anaphylaxis 0.3 MG - Active Diovan 320 mg tablet take 1 tablet by oral route every day 320 MG - Active amlodipine 10 mg tablet take 1 tablet by oral route every day 10 MG - Active Procedures Procedure Date Dilated Exam Performed And Documented REFRACTION Ophth Serv: Med Exam; Comp Est Ophth Serv: Med Exam; Comp Est 19 Ophth Serv: Med Exam; Comp Est 17 <content ID='ProcedureDescri ption_5' xmlns='[email or web address]:[email or web address]'>Ophth Exten W/ret Draw W/i&r;</content> <content ID='ProcedureDescri ption_6' xmlns='[email or web address]:[email or web address]:[email or web address]'>Ophth Exten W/ret Draw W/i&r;</content> Offic/outpt E&m Estab Low-mod 7 Postop F/u Visit Incld Global 6 Cely Lacrimal Punctum; By Plug 6 Ophth Serv: Med Exam; Comp New 16 InflammaDry InflammaDry Osmolarity Testing Osmolarity Testing Advance Directives Directive Yes / No Effective Date File Name No Information Encounters Encounter Description Practice Location Reason(s) For Visit Diagnoses Date Provider Providers Copied on Encounter [facility], [address] [place] [address] [address], [place], [place], [id number] , tel: [phone] [facility] Diabetes (chief complaint) Type 2 diabetes mellitus without complicationsHyperten sive retinopathy of both eyesAge-related nuclear cataract, bilateralDry eye syndrome of bilateral lacrimal glandsVitreous degeneration, bilateralPresbyopia May- 0 Hoffert OD [place]. [address], [place], [place], [id number] , . tel: [phone] Referring Provider: Dionna Gomez OD L, [address], [place], [address] . tel:[phone] [facility], [address], [place], [place], [id number] , tel: [phone] [facility] Diabetic eye exam (chief complaint) Decreased vision (chief complaint) Type 2 diabetes mellitus without complicationsAge-rela mariana nuclear cataract, bilateralVitreous degeneration, bilateralDry eye syndrome of bilateral lacrimal glands 9 Hoffert OD [place]. [address], [place], [place], [id number] , . tel: [phone] Referring Provider: Dionna Gomez OD L, [address], [place], [address] . tel:[phone] [facility], [address], [place], [place], [address] , tel: [phone] [facility] Diabetic eye exam (chief complaint) Cataract (chief complaint) Dry eye (chief complaint) Age-related nuclear cataract, bilateralDry eye syndrome of bilateral lacrimal glandsVitreous detachment of right eyeVitreous detachment of left eyeType 2 diabetes mellitus without complications 7 Hoffert OD [place]. [address], [place], [place], [id number] , . tel: [phone] Referring Provider: Dionna Gomez OD L, [address], [place], [address] . tel:[phone] Offic/outpt E&m Estab Low-mod [facility] [place], [address], [address] [place] [address] , tel: [phone] [facility] Dry eye (chief complaint) Dry eye syndrome of bilateral lacrimal glands 7 Hoffert OD [place]. [address], [address] [place] [address] , . tel: [phone] Referring Provider: Dionna Gomez OD L, [address] [place] [address], [address] . tel:[phone] [facility], [address] [place] [address], [address] [place] [address] , tel: [phone] [facility] dry eye (chief complaint) Dry eye syndrome of bilateral lacrimal glands 6 Hoffert OD [place]. [address] [place] [address], [address] [place] [address] , . tel: [phone] Referring Provider: Dionna Gomez OD L, [address] [place] [address], [address] . tel:[phone] [facility], [address], [address] [place] [address] , tel: [phone] [facility] Dry eyes (chief complaint) Dry eye syndrome of bilateral lacrimal glands 6 Hoffert OD [place]. [address], [address] [place] [address] , . tel: [phone] Referring Provider: Dionna Gomez [place], [address], [address] [place] [address] . tel:[phone] [facility], [address], [place], [place], [id number] , tel: [phone] [facility] watery eyes (chief complaint) Diabetic eye exam (chief complaint) Dry eye syndrome of bilateral lacrimal glandsType 2 diabetes mellitus without complicationsType 2 diabetes mellitus with mild nonproliferative diabetic retinopathy without macular edema, left eyeVitreous degeneration, bilateralCataractAge- related nuclear cataract, bilateralDry eye syndrome of right lacrimal glandDry eye syndrome of left lacrimal gland Sondra Villareal. [address], [place], [place], [id number] , . [phone] Referring Provider: Dionna Gomez OD Zenaida, [address] [facility] [address], [place], [address] . tel:[phone] Family History Family Member Type Diagnosis Age At Onset No Information Payers Payer name Insurance type Covered constitution party ID Melissa ochoa(s) Medicare MB [id number] [employer] [id number] Social History Type Description Quantity Date Captured Comments Alcohol Use Details No Caffeine Use Details Unknown Tobacco Use Status Occasional cigarette smoker Smoking Status Current some day smoker Smoking Tobacco Use Details Cigarette: No Details Available Cigarette: No Details Available Sex Female Chief Complaint And Reason For Visit From encounter dated '05/30/2019 14:55'. Diabetes (chief complaint). Description: The 73 yr old female pt presents for a 1 yr diabetic eye exam.Feels vision is not as clear as it used to be. Has always had light sensitivity, no new onset. Does not feel comfortable driving at night anymore though because she is unable to see clearly. No discomfort in either eye. Has been working to manage diabetes better, but notes blood sugar readings have been higher than normal lately. Reason For Referral Reason For Referral No Information Plan Of Treatment Date Type Action Status Patient Education Dry Eyes: Care Instruct ions completed Patient Education Dry Eyes: Care Instruct ions completed Patient Education Dry Eyes: Care Instruct ions completed Patient Education Type 2 Diabetes: Care I nstructions completed Patient Education Dry Eyes: Care Instruct ions completed History Of Present Illness Encounter Date Complaint History Of Prese nt Illness Diabetes The 73 yr old fe male pt presents for a 1 yr diabetic eye exam.Feels vision is not as clear as it used to be. Has always had light sensitivity, no new onset. Does not feel comfortable driving at night anymore though because she is unable to see clearly. No discomfort in either eye. Has been working to manage diabetes better, but notes blood sugar readings have been higher than normal lately. Diabetic eye exam The 72 year ol d female patient presents for a 1 year follow up of diabetes type II.Monitors blood sugar regularly and last A1C was 6.2. Vision adequate for daily tasks, but notices slight decrease in distance vision. Decreased vision The 72 year old female patient presents for an evaluation of decrease vision OU.Feels that there has been a slight change to DVA. Feels vision is slightly blurry and tries not to drive at night. Notes itchy, dry eyes and uses AT to alleviate. Cataract Patient presents with Cataracts OU. Patient is unaware of any vision changes since last visit. Patient denies any problems with glare/halos. Dry eye Patient presents for one year follow up for dry eyes in both eyes. Patient denies any pain or discomfort. Patient states that her eyes have felt watery in last 3 weeks. Patient informs eyes become watery while outside walking but eyes do not feel watery while indoors. Diabetic eye exam Patient presen ts for a 1 year Diabetic eye exam. Patient reports last A1C to be 10.10. Dry eye Patient presents for 6 week follow up concerning dry eyes. Patient was here on 03/14/16 and had punctal plugs placed in on 03/07/16. Patient states that since having plugs put in her eyes are less dry, less watery and no irritation noted. Patient denies burning and gritty sensations that she was feeling before plugs. Patient states that the results of punctal plugs have been wonderful. Patient had tear lab done on 02/23/16 and scored 21 on dry eye questionnaire. dry eye Pt presents for 1 week follow up for punctal plugs. Pt notices a major difference in symptoms. Eyes no longer burn or feel gritty Dry eyes Patient presents for 2 week follow up for plugs for dry eyes in both eyes. Patient states her eyes have gotten better since her last visit 02/23/2016. Patient states she has been using the refresh eye drops 5x daily, patient has also been using a warm mask twice daily. Patient states the swelling has gone down as well. Patient states her eyes still feel wet, not as bad as it used to be. Patient states that the eyes are the same, one does not feel worse than the other. Moetent was prescribed restatsis, she is allergic. Patient states the last time she used artificial eye drops was last night. watery eyes Diabetic eye exam Patient has elliott d type two diabetis for 10 years. Patient states that she takes her blood sugar every other day and her last blood sugar was 190 last night. Patient states that she blood sugar usually doesnt fluctuate. Last A1C reading of 9.4 in december. Patient uses insulin and Januvia. Patient states she is unable to be active due to eyes. Patient states that she has experienced hazey decreased vision in her left eye. Functional Status Date Functional Assessmen t No Information Instructions Date Instruction Additional Infor elzbieta Return in 1 year luis eduardo Gomez OD for Complete Dilated Fundus Exam. Related to Type 2 diabetes mellitus without complications Impression/Plan Related to Hyper tensive retinopathy of both eyes Impression/Plan Related to Age-r elated nuclear cataract, bilateral Impression/Plan Related to Type 2 diabetes mellitus without complications Impression/Plan Related to Presb yopia Impression/Plan Related to Vitre ous degeneration, bilateral Impression/Plan Related to Dry e ye syndrome of bilateral lacrimal glands Return in 1 year luis eduardo Gomez OD for Complete Dilated Fundus Exam. Related to Type 2 diabetes mellitus without complications Impression/Plan Related to Dry e ye syndrome of bilateral lacrimal glands Impression/Plan Related to Vitre ous degeneration, bilateral Impression/Plan Related to Age-r elated nuclear cataract, bilateral Impression/Plan Related to Type 2 diabetes mellitus without complications Return in 1 year Dionna Steele OD for Complete Dilated Fundus Exam. Related to Type 2 diabetes mellitus without complications Impression/Plan - Discussed dry eye syndrome with patient. Begin artificial tears (TheraTears) four times a day into both eyes. Warm compress twice a day for at least 10 minutes. Recommend omega-3 fatty acids in diet form or supplement 2000 mg/day (As allowed). If artificial tears alone do not provide relief return to clinic for further treatment. Related to Dry eye syndrome of bilateral lacrimal glands Follow up - Return in 1 year with Dionna Gomez OD for Complete Dilated Fundus Exam. Related to Type 2 diabetes mellitus without complications Impression/Plan - U laurence examination, there was no diabetic retinopathy present today. The importance of good diet control and monitoring of HgA1c and blood sugar was discussed. The patient should follow up with their primary medical doctor as directed or within six to twelve months. Related to Type 2 diabetes mellitus without complications Impression/Plan - D iscussed cataract status with patient. Non visually significant at this time. Will monitor cataract status at next exam or sooner if any vision changes are noticed. Related to Age-related nuclear cataract, bilateral Impression/Plan - P VD appears stable at this time. Flashes and Floaters discussed, signs and symptoms of Retinal Detachment or Retinal tear discussed, patient is aware to be seen immediately for increased or new symptoms. Related to Vitreous detachment of left eye Impression/Plan - P VD appears stable at this time. Flashes and Floaters discussed, signs and symptoms of Retinal Detachment or Retinal tear discussed, patient is aware to be seen immediately for increased or new symptoms. Related to Vitreous detachment of right eye As scheudled with [facility] Related to Dry eye syndrome of bilateral lacrimal glands Follow up - As scheudled with [facility] Related to Dry eye syndrome of bilateral lacrimal glands Impression/Plan - P t is noticing full relief with current treatment. CPM. RTC for annaul or sooner if any changes Related to Dry eye syndrome of bilateral lacrimal glands as scheduled for dry eye follow up Related to Dry eye syndrome of bilateral lacrimal glands Follow up - as sche duled for dry eye follow up Related to Dry eye syndrome of bilateral lacrimal glands Impression/Plan - P t is responding well to plugs. Continue with current treatment Related to Dry eye syndrome of bilateral lacrimal glands Return in 1 week luis eduardo jason Patricia OD, Crystal for dry eye check. Related to Dry eye syndrome of bilateral lacrimal glands Follow up - Return in 1 week with Patricia OD, Crystal for dry eye check. Related to Dry eye syndrome of bilateral lacrimal glands Impression/Plan - D iscussed pathophysiology of dry eye with patient. Patient is unable to obtain relief with artificial tears alone and is allergic to Restasis. Risks/Benefits of silicone punctual plugs discussed in detail. Petite [place] punctal plug OD and Small [place] punctal plug OS inserted in office without complication. One drop of ofloxacin was inserted in to the eye(s) prior to insertion. See consent sheet for plug specifications. Return in 1 week for follow up or sooner if any discomfort is noted. Related to Dry eye syndrome of bilateral lacrimal glands Return in 6 weeks [facility] for dry eye eval and repeat testing. poss plugs Related to Dry eye syndrome of bilateral lacrimal glands Return in 1 year luis eduardo gomez Patricia OD, Crystal for CEE Related to Type 2 diabetes mellitus with mild nonproliferative diabetic retinopathy without macular edema, left eye Follow up - Return in 1 year with Patricia OD, Crystal for CEE Related to Type 2 diabetes mellitus with mild nonproliferative diabetic retinopathy without macular edema, left eye Impression/Plan - M ild isolated heme today. . No macular edema present. Stressed importance of tight glucose control and importance of maintaining follow up appointments with managing doctor. Patient was educated on the effects of diabetes in the eyes. Diabetic report sent to PCP/township clerk. Yearly dilated fundus examination recommended. Related to Type 2 diabetes mellitus with mild nonproliferative diabetic retinopathy without macular edema, left eye Impression/Plan - N O retinopathy OD, see plan for OS Related to Type 2 diabetes mellitus without complications Impression/Plan - P VD appears stable at this time. Flashes and Floaters discussed, signs and symptoms of Retinal Detachment or Retinal tear discussed, patient is aware to be seen immediately for increased or new symptoms. Related to Vitreous degeneration, bilateral Impression/Plan - D iscussed cataract status with patient. Non visually significant at this time. Will monitor cataract status at next exam or sooner if any vision changes are noticed. Related to Cataract Follow up - Return in 6 weeks with [facility] for dry eye eval and repeat testing. poss plugs Related to Dry eye syndrome of bilateral lacrimal glands Impression/Plan - Tear lab osmolarity and Inflammadry RPS was ordered today due to DEQ-5 score. Repeat testing indicated in 6 weeks due to increased osmolarity and asymmetry between the eye (Tear Lab). Light Positive inflammatory RPS result (Inflammadry RPS). Patient was educated on tear lab findings. Begin preservative free artificial tears qid, warm compress bid X 10 mintures. Start restasis bid due to inflammadry results. RTC 6 weeks for repeat testing. COnsider adding steroid or plugs in future. Related to Dry eye syndrome of bilateral lacrimal glands Assessments Type Assessment Date assessment Type 2 diabetes mellitus without complications assessment Hypertensive retinopathy of both eyes assessment Age-related nuclear cataract, bi lateral assessment Dry eye syndrome of bilateral la crimal glands assessment Vitreous degeneration, bilateral assessment Presbyopia impression Status: Stable impression Status: Symptomatic impression Status: Stable impression Status: Asymptomatic impression Status: Stable impression Status: Stable Patient Care Teams Name Effective Dates (start - stop) Status Members No Information
--- NOTE | 2025-03-05 11:50 | MHC.OFFVISWM ---
VS Expanded 03/05/25 12:04 BP 126/59 L Blood Pressure Location Lt brachial Blood Pressure Position Sitting Pulse 65 Pulse Source Pulse Oximeter Temp 97.1 F Temperature Source Temporal Artery Scan Pulse Oximetry 94 Oxygen Delivery Method Room Air Height 5 ft 4.5 in Weight 166 lb 8 oz BMI 28.1 Body Fat % 33.5 Body Fat Mass 55.8 Fat Free Mass 110.8 Visceral Fat Rating 10.0 Body Water % 46 Body Water Mass 77.8 Muscle Mass/Score 105 Basal Metabolic Rate/Score 1,480 Intake Visit Reasons: (OV) s/p Panniculectomy 06/20/24 Software Test Analyst Required: No Accompanied by: Self / Same As Patient Allergies azithromycin Allergy (Mild, Verified 03/05/25 11:56) Hives cyclosporine Allergy (Mild, Verified 03/05/25 11:56) Hives iodine Allergy (Mild, Verified 03/05/25 11:56) Anaphylaxis Latex, Natural Rubber Allergy (Mild, Verified 03/05/25 11:56) Anaphylaxis morphine Allergy (Mild, Verified 03/05/25 11:56) Headache Penicillins Allergy (Mild, Verified 03/05/25 11:56) Hives umeclidinium (From Incruse Ellipta) Allergy (Mild, Verified 03/05/25 11:56) Hives EPINEPHRINE Allergy (Mild, Uncoded 07/04/24 10:10) RAPID HEARTBEAT Medication List - Last Reconciled 03/05/25 by LYNN Kirby albuterol sulfate 90 mcg/actuation 2 inhalations inhalation Q4-6H PRN albuterol sulfate 2.5 mg inhalation BID PRN amlodipine 5 mg PO DAILY atorvastatin (Lipitor) 40 mg PO QPM blood sugar diagnostic (FreeStyle Lite Strips) As directed cetirizine (Zyrtec) 10 mg PO DAILY chlorthalidone 50 mg PO DAILY desoximetasone 0.25% 1 appl topical DAILY PRN docusate sodium (Colace) 400 mg PO BID econazole nitrate 1% 1 appl topical DAILY PRN epinephrine (EpiPen) 0.3 mg IM Q4H PRN fluocinonide 0.05% 1 appl topical BID-QID PRN fluticasone propion-salmeterol 230-21 mcg/actuation 1 puff inhalation BID hydroxyzine HCl 25 mg PO BEDTIME losartan 100 mg PO DAILY [magnesium 1 tab PO BID] multivitamin 1 tab PO DAILY trazodone 100 mg PO BEDTIME triamcinolone acetonide 0.1% 1 appl topical BID-TID PRN zinc gluconate 50 mg PO DAILY HPI Comments Details: This a 79 yo female who is s/p LSG without hiatal hernia repair on 08/03/[address] White. She is also status post panniculectomy performed on 06/20/[address] Restrepo. Weight today is 166.8 pounds, with a BMI of 28.1. 3.8lb weight gain since last OV in November. Initial weight 235.4 pounds starting the program on 05/02/2022 and operative weight 210 pounds. No complaints of nausea, emesis, abdominal pain or reflux. Reports infrequent but normal bowel movements every 1-2 days and uses stool softeners regularly. Has been attending support groups. Meal plan: changed at last visit by Ayo Goodman protein 2 scoops at 6-8 unjury fruit shake 1/2 scoop (21 gm) meal with 6 forks protein and 6 forks veg No further snacking at night. She may have half an apple if necessary 40 oz fluids Exercise plan: was walking 5 mi daily has not been to the gym and having trouble getting the motivation to return [facility] Medical History Back pain Hiatal hernia GERD (gastroesophageal reflux disease) Dry eyes Osteoarthritis Eczema Diabetes Asthma HTN (hypertension) Obesity Surgical History Hx of bladder endoscopy S/P panniculectomy History of sleeve gastrectomy (08/03/22) Hx of oral surgery History of eyelid surgery Hx of colonoscopy Hx of cholecystectomy Hx of unilateral salpingectomy Hx of unilateral oophorectomy Hx of tonsillectomy Hx of appendectomy Family History Mother No problems noted. Father No problems noted. Brother Diabetes Brother Diabetes Brother Cancer Heart disease Social History Are you a primary care support representative to a significant other at home: No Do you presently have visiting nurse or other home services: No Alcohol intake: never Patient Tobacco Use Status: Former Tobacco user Tobacco use type: Cigarette Second Hand Smoke Exposure: No service: No Current occupational status: retired Physical Exam Vital Signs: Last Vital Signs Temp 97.1 F 03/05/25 12:04 Pulse 65 03/05/25 12:04 BP 126/59 L 03/05/25 12:04 Pulse Ox 94 03/05/25 12:04 Oxygen Delivery Method Room Air 03/05/25 12:04 BMI result Body Mass Index 28.1 Assessment & Plan Assessment & Plan (1) Overweight: Code(s): E66.3 - Overweight Category: Medical (2) S/P laparoscopic sleeve gastrectomy: Code(s): Z98.84 - Bariatric surgery status Category: Medical (3) S/P panniculectomy: Code(s): Z98.890 - Other specified postprocedural states Category: Medical Plan Encouraged pt to get back on track with exercise. She recognizes that she is lacking in this again. She will try a meal plan of one Fairlife shake, one protein bar, and 1 meal 5 forks, and if needs to snack have fruit, veg, or something high in protein like yogurt, CC, cheese stick, meat stick. Offered [facility] [facility] and pt will consider. Will text her in AM to remind her to exercise. She can text me weekly with measurements for accountability if she finds this beneficial. RTC 4mo.
[2025-03-05 12:04] VITALS: BP 126/59; PULSE 65; TEMP 36.2; O2SAT 94; BMI 28.1
--- OUTSIDE RECORDS SUMMARY | 2025-03-05 14:14 | XMS_ITS | Encounter Summary ---
Author Organization [facility] Address [address] [facility] [address] [place] [address] Phone Care Team Providers Care Communications Advisor Name Role Phone Elyse Vasquez MD Primary Care Provider [phone] Encounter Details Date Type Department Care Team (Late st Contact Info) Description 09/15/2021 Procedure Pass [address] [address] Social History Tobacco Use Types Packs/Day Years [...] 6:21 AM EST Sexual Orientation Straight 02/09/2019 6: 21 AM EST documented as of this encounter Plan of Treatment Upcoming Encounters Date Type Department Care Team (Late st Contact Info) Description 09/27/2024 Procedure Pass [address] [address] 05/06/2025 10:15 AM EST Appointment [address] [address] Elyse Vasquez MD [address] [place] [address] [phone] [email or web address] 06/29/2025 10:45 AM EDT Appointment [facility] [address] [place] [address] Elvia Rae NP [address] [place] [id number] documented as of this encounter Visit Diagnoses Not on filedocumented in this encounter Care Teams Communications Advisor Relationship Specialty Start Date End Date Elyse Vasquez MD [email or web address] PCP - General Family Medicine 10/10/17 documented as of this encounter Additional Source Comments The information contained in this document represents components of the legal health record. It is not the complete legal health record.[facility]
--- OUTSIDE RECORDS SUMMARY | 2025-03-05 14:14 | XMS_ITS | Clinical Summary ---
Author Organization [facility] Address [address] [address] Phone Care Team Providers Care Lime Puller Name Role Phone Elyse Vasquez MD Primary Care Provider Allergies Active Allergy Reactions Criticality Noted Date Comments Azithromycin (Bulk) Hives 02/05/2015 Cyclosporine 12/20/2018 Epinephrine 02/09/2019 Dental epinephrine Iodine And Iodide Containing Products 02/05/2015 Latex, Natural Rubber Rash Low 02/05/2015 Morphine 02/05/2015 Penicillins 02/05/2015 Medications Medication-Free Text NovoLOG Solution, Sig: Subcutaneous Active betamethasone valerate 0.1 % cream 1 application to affected area Externally Once a day Active Medication-Free Text Zinc 10 mg Tablet, Sig: Orally daily Active vitamin E 1000 UNIT capsule Orally Once daily Active Medication-Free Text Vitamin D-3 1000 mg Tablet, Sig: Orally Once daily Active esomeprazole (NEXIUM) 40 MG capsule 1 capsule Orally Once a day Active Medication-Free Text multivitamin Active meloxicam (MOBIC) 15 MG tablet Take 1 tablet by mouth daily. Active SITagliptin (JANUVIA) 100 MG tablet Orally Once daily Ac tive hydrOXYzine (ATARAX) 25 MG tablet Orally Once daily Ac tive hydroCHLOROthiaz domingo (HYDRODIURIL) 25 MG tablet Take 1 tablet by mouth daily. Active fluocinonide 0.05 % external solution Externally Active fenofibrate (LOFIBRA) 160 MG tablet 1 capsule with a meal Orally Once a day Active valsartan (DIOVAN) 320 MG tablet 1 Orally Once a day Active desoximetasone (TOPICORT) 0.25 % ointment 1 application to affected area Externally Once a day Active cod liver oil Cap Orally Active atorvastatin (LIPITOR) 40 MG tablet Take 1 tablet by mouth daily. Active amLODIPine (NORVASC) 10 MG tablet as directed Active Medication-Free Text Cholestyramine 4 GM/DOSE Powder, Si Orally Twice a day Active CALCIUM ORAL 1 tab Oral three times daily Active econazole nitrate 1 % cream 01/05/20 16 Active EPINEPHrine (EPIPEN 2-ZAHEER) 0.3 mg/0.3 mL auto-injector 11/03/19 16 Active insulin aspart U-100 (NOVOLOG FLEXPEN U-100 INSULIN) 100 unit/mL (3 mL) InPn injection pen 07/20/19 16 Active losartan (COZAAR) 100 MG tablet Take 100 mg by mouth daily. Active aspirin 81 mg chewable tablet Take 81 mg by mouth daily. Active cetirizine (ZYRTEC) 10 MG tablet Take 10 mg by mouth daily. Active hydrOXYzine (VISTARIL) 25 MG capsule Take 25 mg by mouth daily. Active insulin detemir U-100 (LEVEMIR) 100 unit/mL (3 mL) InPn injection pen inject by subcutaneous route per prescriber's instructions. Insulin dosing requires individualization. Active HUMULIN R, KWIKPEN 500 unit/mL (3 mL) subcutaneous injection Inject 40 Units under the skin daily before lunch. 01/14/20 20 Active fluticasone propionate (FLOVENT HFA) 110 mcg/actuation inhaler Inhale 1 puff into the lungs 2 (two) times a day. Active insulin regular, human (HUMULIN R U-500, CONC, KWIKPEN SUBQ) Inject 45 Units under the skin daily before breakfast. Active insulin regular, human (HUMULIN R U-500, CONC, KWIKPEN SUBQ) Inject 130 Units under the skin Daily before dinner. Active etodolac (LODINE) 200 MG capsule Take 200 mg by mouth 2 (two) times a day. 04/15/19 22 Active FLUOCINONIDE-EMO LLIENT 0.05 % cream APPLY ONCE DAILY TO AFFECTED AREA 03/18/20 21 Active albuterol 90 mcg/actuation inhaler Inhale 2 puffs into the lungs every 4 (four) hours as needed. 03/30/20 21 Active traZODone (DESYREL) 50 MG tablet TAKE 1 TO 2 TABLETS BY MOUTH EVERY DAY 09/23/19 25 Active amLODIPine (NORVASC) 5 MG tablet Take 1 tablet by mouth every morning. 10/15/19 25 Active Active Problems Problem Noted Date Diagnosed Date Lesion of lip 01/28/2020 Encounters Date Type Department Care Team Description 01/23/2025 Transcribe Orders Virtual Department [address] [place] [address] Elvia Rae NP Asymptomatic menopausal state (Primary Dx) from Last 3 Months Immunizations Immunization Administration Dates Next Due Tdap 02/08/2019 Family History Medical History Relation Comments Breast cancer Maternal Aunt 1 Ovarian cancer Maternal Aunt 2 Relation Status Comments Maternal Aunt 1 Maternal Aunt 2 Social History Tobacco Use Types Packs/Day Years Used Date Smoking Tobacco: Former Cigarettes 2 29.5 0 11/01/1966 - 05/04/1996 Smokeless Tobacco: Never Tobacco Cessation:Counseling Given: Not Answered Alcohol Use Standard Drinks/Week Comments Never 0 (1 standard drink = 0.6 oz pur e alcohol) Education Answer Date Recorded Are you interested in more education? Not on den e 07/29/2022 Are you concerned about learning? Not on file 07/29/2022 No 07/29/2022 No 07/29/2022 Digital Access Answer Date Recorded No 08/29/2022 No 08/29/2022 Reliable internet access at home? Not on file 08/29/2022 Device with a working camera? Not on file Intimate Partner Violence Answer Date R ecorded Are you denied basic needs s uch as food, clothing, or medical care? No 11/06/2024 In the past 12 months have y ou been in a relationship with a person who hurts, threatens, or tries to control you? No 11/06/2024 Are you denied basic needs s uch as food, clothing, or medical care? No 11/06/2024 In the past 12 months have y ou been in a relationship with a person who hurts, threatens, or tries to control you? No 11/06/2024 Comments No Sex and Gender Information Value Date Recorded Sex Assigned at Female 02/09/2019 6:21 AM EST Legal Sex Female 11:29 AM EDT Gender Identity Female 02/09/2019 6:21 AM EST Sexual Orientation Straight 02/09/2019 6: 21 AM EST Last Filed Vital Signs Vital Sign Reading Time Taken Comments Blood Pressure 131/62 11/06/2024 9:35 AM EDT Pulse 61 11/06/2024 9:35 AM EDT Temperature 36.4 C (97.5 F) 11/06/2024 9:25 AM EDT Respiratory Rate 14 11/06/2024 9:35 AM EDT Oxygen Saturation 99% 11/06/2024 9:35 AM EDT Inhaled Oxygen Concentration - - Weight 71.7 kg (158 lb) 10/31/2024 9:40 AM EDT Height 162.6 cm (5' 4 ) 10/31/2024 9:40 AM EDT Body Mass Index 27.12 10/31/2024 9:40 AM EDT Plan of Treatment Upcoming Encounters Date Type Department Care Team (Late st Contact Info) Description 09/27/2024 Procedure Pass [address] [address] 05/06/2025 10:15 AM EST Appointment [address] [address] Elyse Vasquez MD [address] [place] [address] 06/29/2025 10:45 AM EDT Appointment [facility]ensity [address] [address] Elvia Rae NP [address] [place] [address] Health Maintenance Due Date Last Done Comments LIPID PANEL 1945 DEPRESSION SCREENING 1959 HEPATITIS C SCREENING 10/01/1965 COLOGUARD 10/01/1992 FIT TEST 10/01/1992 FOBT 10/01/1992 SIGMOIDOSCOPY 10/01/1992 VIRTUAL COLONOSCOPY 10/01/1992 OSTEOPOROSIS SCREENING INITIAL (ONE-TIME) 10/01/2012 CREATININE LEVEL 11/06/2021 11/06/2020 POTASSIUM LEVEL 11/06/2021 11/06/2020 INFLUENZA VACCINE (#1) 2024 , 12/24/2022, 11/22/2021, Additional history exists COVID-19 VACCINE ( season) 2024 08/12/2024, 01/02/2024, 01/03/2023, Additional history exists Adult Td,Tdap Booster 02/08/2029 02/08/2019 , 01/19/2015, 01/06/2006, Additional history exists COLONOSCOPY 11/07/2031 11/06/2024 COLORECTAL CANCER SCREENING 11/07/2031 ZOSTER VACCINES Completed 10/18/2017, 10/2017, 04/30/2008 PNEUMOCOCCAL VACCINES (50+ years) Completed 11/27/2017, 01/23/2017, 01/20/2015, Additional history exists RSV VACCINE Completed 12/27/2022 SMOKING STATUS SCREENING (Once After 26 Yrs) Completed 10/31/2024 HEPATITIS A VACCINES Aged Out No long er eligible based on patient's age to complete this topic HIB VACCINES Aged Out No longer eligi ble based on patient's age to complete this topic MENINGOCOCCAL VACCINES (ACWY) Aged Out No longer eligible based on patient's age to complete this topic MENINGOCOCCAL VACCINES (B) Aged Out N o longer eligible based on patient's age to complete this topic Medical Devices Not on file Procedures Procedure Name Priority Date/Time Associated Diagnosis Comments OUTSIDE PATHOLOGY 12/23/2024 ENDOSCOPY, COLON 11/06/2024 8:38 AM EDT BASIC METABOLIC PANEL (BMP) STAT 11/06/2020 10:03 AM EDT from Last 3 Months or Most Recently Relevant to Health Maintenance Results * Outside Pathology (12/23/2024) us Scanning Interface Provider PATHOLOGY ORDERABLES Final Result * ENDOSCOPY, COLON (11/06/2024 8:38 AM EDT) Narrative Transcriptions Vadim Ferguson MD - 11/06/2024 8:38 AM EDT [facility] Patient Name: Ruth Oates Attending MD:: VADIM FERGUSON MD, Procedure Date: 11/06/2024 8:38 AM Date of : 1945 Age: 79 Admit Type: Outpatient Gender: Female Room: [place] [address] Referring MD: Elyse Vasquez MD Exam Type: Colonoscopy Indications: Screening for colorectal malignant neoplasm, Last colonoscopy: September 2014 Medications: Monitored Anesthesia Care Procedure: Informed consent was obtained from the patientafter discussion of the indications, limitations, alternatives, benefits, and risks of the procedure. Risks specifically discussed include but are not limited to medication reactions, missed lesions, bleeding, perforation, or the need for emergent surgery. Throughout the procedure, the patient's blood pressure, pulse, end-tidal CO2, and oxygensaturations were monitored continuously. The Colonoscope was introduced through the anus and advanced to the terminal ileum, with identificationof the appendiceal orifice and IC valve. Thecolonoscopy was performed without difficulty. The patient tolerated the procedure well. The quality of thebowel preparation was good. The terminal ileum, ileocecal valve, appendiceal orifice, and rectum were photographed. Complications: No immediate complications. Estimated blood loss:None. Findings: The terminal ileum appeared normal. Examination of the right colon was repeated in retroflexion and again in NBI. Retroflexion wasalso performed in the rectum. Multiple diverticula were found in the sigmoidcolon. Internal hemorrhoids were found duringretroflexion. The hemorrhoids were moderate. A 7 mm polyp was found in the descending colon. The polyp was sessile. The polyp was removed with acold snare. Resection and retrieval were complete. The exam was otherwise without abnormality. Impression: - The examined portion of the ileum was normal. - Diverticulosis in the sigmoid colon. - Internal hemorrhoids. - One 7 mm polyp in the descending colon, removedwith a cold snare. Resected and retrieved. - The examination was otherwise normal. Recommendation: - Patient has a contact number available for emergencies. The signsand symptoms of potential delayed complications were discussed with the patient. Return to normal activities tomorrow. Written discharge instructions were provided to the patient. - Await pathology results. - Repeat colonoscopy in 7 years for surveillance. - Return to GI office as previously scheduled. Vadim Ferguson VADIM FERGUSON MD 11/06/2024 9:12:52 AM This report has been signed electronically. Number of Addenda: 0 Note Initiated On: 11/06/2024 8:38 AM Procedure Code(s): --- Professional --- 22629, Colonoscopy, flexible; with removal of tumor(s), polyp(s), or other lesion(s) by snare technique --- Technical --- 86109, Colonoscopy, flexible; with removal of tumor(s), polyp(s), or other lesion(s) by snare technique CPT copyright 2021 [employer]. All rights reserved. The codes documented in this report are preliminary and upon director of home care hospice reviewmay be revised to meet current compliance requirements. Procedure Date: 11/06/2024 8:38:[address] [place] [address] us Elyse Vasquez MD GI PROCEDURE ORDERABLES Fin al Result * (ABNORMAL) Basic metabolic panel (11/06/2020 10:03 AM EDT) SODIUM 142 133 - 146 mmol/L [facility] CHLORIDE 104 96 - 108 mmol/L [facility] POTASSIUM 4.0 3.3 - 5.1 mmol/L [facility] CO2 29 21 - 35 mmol/L [facility] BUN 16 6 - 19 mg/dL [facility] CREATININE 0.60 0.5 - 1.5 mg/dL [facility] GLUCOSE 151(H) 70 - 99 mg/dL [facility] CALCIUM 10.0 8.4 - 10.3 mg/dL [facility] EGFR 90 >59 mL/min/1.7 3m2 [facility] Comment:Estimated glomerular filtration rate calculated using the CKD-EPI equation. ANION GAP 13 10 - 20 mmol/L [facility] Blood 11/06/2020 10:0 3 AM EDT 11/06/2020 10:11 AM EDT us Morgan Castro MD LAB BLOOD BKR ORD ERABLES Final Result [address] [address] from Last 3 Months or Most Recently Relevant to Health Maintenance Insurance MEDICARE PART A & B [employer] MEDEX SUPPLEMENT MEDICARE PART A & B Artim[employer] ABEX SUPPLEMENT MEDICARE PART A & B Repairogen MEDEX SUPPLEMENT MEDICARE PART A & B [employer] MEDEX SUPPLEMENT MEDICARE PART A & B [employer] MEDEX SUPPLEMENT MEDICARE PART A & B [employer] MEDEX SUPPLEMENT MEDICARE PART A & B [employer] CROSS MEDEX SUPPLEMENT Rep[employer] MEDEX SUPPLEMENT MEDICARE PART A & B [employer] CROSS MEDEX SUPPLEMENT Advance Directives For more information, please contact: [phone] (9AM - 5PM [facility], Monday-Monday) Healthcare Agents on File Name Relationship [facility] Elyse O'Richey Relative .Primary Health Care Agent (Proxy form on file) Care Teams Lime Puller Relationship Specialty Start Date End Date Elyse Vasquez MD PCP - General Family Medicine 10/10/17 Additional Source Comments The information contained in this document represents components of the legal health record. It is not the complete legal health record.[facility]
--- OUTSIDE RECORDS SUMMARY | 2025-03-05 14:14 | XMS_ITS | Encounter Summary ---
Author Organization [facility] Address [address] [facility] [facility] [address] [place] [address] Phone Care Team Providers Care Speech Professor Name Role Phone Elyse Vasquez MD Primary Care Provider [phone] Encounter Details Date Type Department Care Team (Late st Contact Info) Description 09/16/2020 Procedure Pass [address] [address] Social History Tobacco Use Types Packs/Day Years Used Date Smoking Tobacco: Former Cigarettes Q uit: 1998 Smokeless Tobacco: Never Alcohol Use Standard Drinks/Week [...] st Contact Info) Description 09/27/2024 Procedure Pass [address] [address] 05/06/2025 10:15 AM EST Appointment [address] [address] Elyse Vasquez MD [address] [place] [phone] 06/29/2025 10:45 AM EDT Appointment [facility], Bone Density - [facility] [address] [place] [address] Elvia Rae NP [address] [place] [address] documented as of this encounter Visit Diagnoses Not on filedocumented in this encounter Additional Health Concerns Infection Onset Date Last Indicated Resolved Time CoV-Risk 06/20/2021 06/22/2021 07/03/2021 1:21 AM EDT documented as of this encounter Care Teams Speech Professor Relationship Specialty Start Date End Date Elyse Vasquez MD [email or web address] PCP - General Family Medicine 10/10/17 documented as of this encounter Additional Source Comments The information contained in this document represents components of the legal health record. It is not the complete legal health record.[facility]
--- OUTSIDE RECORDS SUMMARY | 2025-03-05 14:14 | XMS_ITS | Encounter Summary ---
Author Organization [facility] Address [address] [employer] [facility] ([place], [place]) [address] [place] [address] Phone Care Team Providers Care Warehouse Man Name Role Phone Elyse Vasquez MD Primary Care Provider Encounter Details Date Type Department Care Team (Late st Contact Info) Description 10/16/2019 Transcribe Orders [facility] [address] [place] [address] Aishwarya Malik, RACHELE [address] [place] [phone] [email or web address] Acute bronchitis, unspecified organism (Primary Dx) Social History Tobacco Use Types Packs/Day Years [...] Encounters Date Type Department Care Team (Late Contact Info) Description 09/27/2024 Procedure Pass [address] [address] 05/06/2025 10:15 AM EST Appointment [address] [place] [address] Elyse Vasquez MD [address] [place] [address] [email or web address] 06/29/2025 10:45 AM EDT Appointment [facility], Bone Density [address] [address] Elvia Rae NP [address] [place] [phone] documented as of this encounter Results * Pulmonary Function Test Reason for Exam: Bronchitis (copd vs. asthma); Type of PFT Test: Spirometrywith bronchodilator, Lung Volumes, DLCO; Performing Location: [facility] (10/17/2019 9:50 AM EDT) [facility] Signature FEV1 1.56 liters FVC 2.03 liters FEV1/FVC 77 % TLC 3.54 liters DLCO 18.6 ml/mmHg sec Anatomical Region Laterality Modality Other Impressions 10/17/2019 9:50 AM EDT PULMONARY FUNCTION STUDIES Full pulmonary function studies were performed on this 74 y.o. year-old female for evaluation of acute bronchitis and asthma. Review of the medical record reveals that the patient is a past smoker. Prior pulmonary function studies are available for comparison, performed on 08/11/2011. SPIROMETRY: The FEV1 is mildly impaired at 1.56 L or 79% predicted. The FVC is mildly impaired at 2.03 L or 73% predicted. The FEV1/FVC ratio is normal at 77%. After the administration of a bronchodilator agent, there is no significant change. Mid flows are impaired but peak flows are preserved. FLOW-VOLUME LOOPS: Evaluation of the flow-volume loops reveals normal morphology of both the inspiratory and expiratory limbs with no significant difference when comparing the tracings performed pre- and post-bronchodilator. LUNG VOLUME MEASUREMENTS BY PLETHYSMOGRAPHY: The total lung capacity is mildly impaired at 3.54 L or 74% predicted. The functional residual capacity is mildly impaired at 1.67 L or 76% predicted. Of note, the ERV is markedly impaired at 30% predicted, likely representing the imprint of body habitus. DIFFUSION CAPACITY: The diffusion capacity is mildly impaired at 18.6 mL/mmHg sec or 78% predicted, however normalizes to 165% predicted when adjusted for alveolar volume. COMPARISON TO PRIOR STUDIES: When comparing to prior studies, there has been no significant change except that the mild restrictive ventilatory defect is new compared to a TLC of 83% predicted 8 years ago in the context of a 7 pound weight gain (previously 215 pounds, currently 2 pounds). Resting oxygen saturation is 95% on room air. IMPRESSION: Abnormal pulmonary function studies as evidenced by a mild restrictive ventilatory defect associated with a proportional mild impairment in diffusion capacity which, the context of a markedly impaired ERV, may be secondary to extrapulmonary restriction and the imprint of body habitus, though early interstitial lung disease, pulmonary vascular disease and/anemia could also be contributing to this. Spirometry reveals no evidence of airflow limitation; if a diagnosis of asthma is in question, a methacholine challenge study could be obtained to further evaluate this. us Provider Not In System PhD PFT ORDERABLES Final Result documented in this encounter Visit Diagnoses Diagnosis Acute bronchitis, unspecified organism- Primary Acute bronchitis, unspecified organism documented in this encounter Additional Health Concerns Infection Onset Date Last Indicated Resolved Time CoV-Risk 06/26/2020 06/26/2020 07/06/2020 1:24 AM EDT CoV-Risk 06/20/2021 06/22/2021 07/03/2021 1:21 AM EDT documented as of this encounter Care Teams Warehouse Man Relationship Specialty Start Date End Date Elyse Vasquez MD [email or web address] PCP - General Family Medicine 10/10/17 documented as of this encounter Additional Source Comments The information contained in this document represents components of the legal health record. It is not the complete legal health record.[facility]
--- OUTSIDE RECORDS SUMMARY | 2025-03-05 14:14 | XMS_ITS | Encounter Summary ---
Author Organization [facility] Address [address] [facility] [address] [place] [address] Phone Care Team Providers Care Product Applications Scientist Name Role Phone Elyse Vasquez MD Primary Care Provider [phone] Encounter Details Date Type Department Care Team (Late st Contact Info) Description 09/16/2020 Ancillary Orders Virtual Department [address] [place] [address] Elyse Vasquez MD [address] [place] [address] [email or web address] Breast screening Social History Tobacco Use Types Packs/Day Years [...] (Late Contact Info) Description 09/27/2024 Procedure Pass [address] [address] 05/06/2025 10:15 AM EST Appointment [address] [address] Elyse Vasquez MD [address] [place] [address] [email or web address] 06/29/2025 10:45 AM EDT Appointment [facility] D[facility] - [facility] [address] [place] [address] Elvia Rae NP [address] [place] [phone] documented as of this encounter Results * BI MAMMOGRAM SCREENING WITH TOMOSYNTHESIS WITH CAD (BILATERAL) (12/04/2020 9:32 AM EDT) Anatomical Region Laterality Modality Breast Left, Breast Right, Breast Bilateral Bila teral Mammography 12/04/2020 10:1 4 AM EDT Impressions 12/04/2020 10:16 AM EDT No mammographic evidence of malignancy. Recommend annual surveillance. BI-RADS CATEGORY: 2 - Benign finding. DENSITY: The breast tissue is almost entirely fat. Narrative 12/04/2020 10:16 AM EDT 75-year-old female with no current breast symptoms. Comparison made to previous on 12/04/2019 and as far back as 10/28/2010. Interpretation made in conjunction with computer-aided detection and tomosynthesis. The breasts are almost entirely fatty. Stable right breast nodularity. There are no suspicious masses, areas of architectural distortion, or suspicious clusters of microcalcifications. Procedure Note Morgan Driver MD - 12/04/2020 75-year-old female with no current breast symptoms. Comparison made toprevious on 12/04/2019 and as far back as 10/28/2010. Interpretation made inconjunction with computer-aided detection and tomosynthesis. The breasts are almost entirely fatty. Stable right breast nodularity. There are no suspicious masses, areas of architectural distortion, orsuspicious clusters of microcalcifications. IMPRESSION: No mammographic evidence of malignancy. Recommend annual surveillance. BI-RADS CATEGORY: 2 - Benign finding. DENSITY: The breast tissue is almost entirely fat. us Elyse Vasquez MD IMG MG EXAMS Final Resul t documented in this encounter Visit Diagnoses Diagnosis Breast screening Breast screening, unspecified Breast screening Breast screening, unspecified documented in this encounter Additional Health Concerns Infection Onset Date Last Indicated Resolved Time CoV-Risk 06/20/2021 06/22/2021 07/03/2021 1:21 AM EDT documented as of this encounter Care Teams Product Applications Scientist Relationship Specialty Start Date End Date Elyse Vasquez MD [email or web address] PCP - General Family Medicine 10/10/17 documented as of this encounter Additional Source Comments The information contained in this document represents components of the legal health record. It is not the complete legal health record.[facility]
--- OUTSIDE RECORDS SUMMARY | 2025-03-05 14:14 | XMS_ITS | Encounter Summary ---
Author Organization [facility] Address [address] [facility] [address] [place] [address] Phone Care Team Providers Care Pharmacy Technologist Name Role Phone Elyse Vasquez MD Primary Care Provider [phone] Encounter Details Date Type Department Care Team (Latest Contact Info) Description 06/26/2020 Transcribe Orders Virtual Department [address] [place] [address] Elvia Rae NP [address] [place] [phone] Fever, unspecified fever cause (Primary Dx); Muscle ache; Stuffy and runny nose Social History Tobacco Use Types Packs/Day Years [...] st Contact Info) Description 09/27/2024 Procedure Pass [address] [address] 05/06/2025 10:15 AM EST Appointment [address] [place] [address] Elyse Vasquez MD [address] [place] [address] [email or web address] 06/29/2025 10:45 AM EDT Appointment [facility], Bone Density [address] [address] Elvia Rae NP [address] [place] [phone] documented as of this encounter Results * COVID-19 PCR Order (06/26/2020 2:12 PM EDT) COVID Testing Status Specimen received in analyzing lab. Results should be available within 24 to 48 hrs. [facility] Symptomatic? YES [facility] 06/26/2020 2:12 PM EDT 06/26/2020 3:07 PM EDT us Elvia Rae [facility] GENERAL ORDERABLES nal Result Performing Organization Address City/State/[facility] Co de Phone Number [facility] [address] [place] [address] [facility] [address] [place] [address] documented in this encounter Visit Diagnoses Diagnosis Fever, unspecified fever cause- Primary Muscle ache Unspecified myalgia and myositis Stuffy and runny nose Other diseases of nasal cavity and sinuses documented in this encounter Additional Health Concerns Infection Onset Date Last Indicated Resolved Time CoV-Risk 06/26/2020 06/26/2020 07/06/2020 1:24 AM EDT CoV-Risk 06/20/2021 06/22/2021 07/03/2021 1:21 AM EDT documented as of this encounter Care Teams Pharmacy Technologist Relationship Specialty Start Date End Date Elyse Vasquez MD [email or web address] PCP - General Family Medicine 10/10/17 documented as of this encounter Additional Source Comments The information contained in this document represents components of the legal health record. It is not the complete legal health record.[facility]
--- OUTSIDE RECORDS SUMMARY | 2025-03-05 14:14 | XMS_ITS | Encounter Summary ---
Author Organization [facility] Address [address] [facility] [address] [place] [address] Phone Care Team Providers Care Natural Gas Plant Supervisor Name Role Phone Elyse Vasquez MD Primary Care Provider [phone]- [phone] Encounter Details Date Type Department Care Team (Late Contact Info) Description 09/26/2022 Procedure Pass [address] [address] Social History Tobacco Use Types Packs/Day Years [...] with a working camera? Not on file Comments No Sex and Gender Information Value Date Recorded Sex Assigned at Female 02/09/2019 6:21 AM EST Legal Sex Female 11:29 AM EDT Gender Identity Female 02/09/2019 6:21 AM EST Sexual Orientation Straight 02/09/2019 6: 21 AM EST documented as of this encounter Plan of Treatment Upcoming Encounters Date Type Department Care Team (Late Contact Info) Description 09/27/2024 Procedure Pass [address] [address] 05/06/2025 10:15 AM EST Appointment [address] [address] Elyse Vasquez MD [address] [place] [address] 06/29/2025 10:45 AM EDT Appointment [facility], Bone Density - [address] [address] Elvia Rae NP [address] [place] [address] documented as of this encounter Visit Diagnoses Not on filedocumented in this encounter Care Teams Natural Gas Plant Supervisor Relationship Specialty Start Date End Date Elyse Vasquez MD PCP - General Family Medicine 10/10/17 documented as of this encounter Additional Source Comments The information contained in this document represents components of the legal health record. It is not the complete legal health record.[facility]
--- OUTSIDE RECORDS SUMMARY | 2025-03-05 14:14 | XMS_ITS | Encounter Summary ---
Author Organization [facility] Address [address] [employer] [facility] [address] [place] [address] Phone Care Team Providers Care Drill Rig Operator Helper Name Role Phone Elyse Vasquez MD Primary Care Provider [phone]- [phone] Encounter Details Date Type Department Care Team (Late st Contact Info) Description 12/30/2019 Transcribe Orders [facility] [address] [place] [address] Aishwarya Malik, RACHELE [address] [place] [phone] [email or web address] Social History Tobacco Use Types Packs/Day Years [...] (Late Contact Info) Description 09/27/2024 Procedure Pass [address] [address] 05/06/2025 10:15 AM EST Appointment [address] [address] Elyse Vasquez MD [address] [place] [address] 06/29/2025 10:45 AM EDT Appointment [facility], Bone Density - [facility] [address] [place] [address] Elvia Rae NP [address] [place] [address] documented as of this encounter Visit Diagnoses Not on filedocumented in this encounter Additional Health Concerns Infection Onset Date Last Indicated Resolved Time CoV-Risk 06/26/2020 06/26/2020 07/06/2020 1:24 AM EDT CoV-Risk 06/20/2021 06/22/2021 07/03/2021 1:21 AM EDT documented as of this encounter Care Teams Drill Rig Operator Helper Relationship Specialty Start Date End Date Elyse Vasquez MD [email or web address] PCP - General Family Medicine 10/10/17 documented as of this encounter Additional Source Comments The information contained in this document represents components of the legal health record. It is not the complete legal health record.[facility]
--- OUTSIDE RECORDS SUMMARY | 2025-03-05 14:14 | XMS_ITS | Encounter Summary ---
Author Organization [facility] Address [address] [employer] [facility] [address] [place] [address] Phone Care Team Providers Care Library Monitor Name Role Phone Elyse Vasquez MD Primary Care Provider [phone]- [phone] Encounter Details Date Type Department Care Team (Late st Contact Info) Description 09/27/2024 Transcribe Orders Virtual Department [address] [place] [address] Elyse Vasquez MD [address] [place], [place] [phone] [email or web address] Breast screening (Primary Dx) Social History Tobacco Use Types [...] st Contact Info) Description 09/27/2024 Procedure Pass [address] [address] 05/06/2025 10:15 AM EST Appointment [address] [address] Elyse Vasquez MD [address] [place] [address] [email or web address] 06/29/2025 10:45 AM EDT Appointment [facility] Bone Density [address] [address] Elvia Rae NP [address] [place] [address] Scheduled Orders Name Type Priority Associated Diagnoses Orde r Schedule Mammogram Screening (Bilateral) Imaging Routine Breast screening Expected: 10/27/2024, Expires: 09/27/2025 documented as of this encounter Visit Diagnoses Diagnosis Breast screening- Primary Breast screening, unspecified documented in this encounter Care Teams Library Monitor Relationship Specialty Start Date End Date Elyse Vasquez MD PCP - General Family Medicine 10/10/17 documented as of this encounter Additional Source Comments The information contained in this document represents components of the legal health record. It is not the complete legal health record.[facility]
--- OUTSIDE RECORDS SUMMARY | 2025-03-05 14:14 | XMS_ITS | Encounter Summary ---
Author Organization [facility] Address [address] [employer] [facility] [address] [place] [address] Phone Care Team Providers Care Fish Conservationist Name Role Phone Elyse Vasquez MD Primary Care Provider [phone]- [phone] Encounter Details Date Type Department Care Team (Late st Contact Info) Description 12/03/2019 Procedure Pass [address] [address] Social History Tobacco Use Types Packs/Day Years [...] st Contact Info) Description 09/27/2024 Procedure Pass [address] [address] 05/06/2025 10:15 AM EST Appointment [address] [address] Elyse Vasquez MD [address] [place] [address] 06/29/2025 10:45 AM EDT Appointment [facility], Bone Density - [facility] [address] [place] [address] Elvia Rae, RACHELE [address] [place] [phone] documented as of this encounter Visit Diagnoses Not on filedocumented in this encounter Additional Health Concerns Infection Onset Date Last Indicated Resolved Time CoV-Risk 06/26/2020 06/26/2020 07/06/2020 1:24 AM EDT CoV-Risk 06/20/2021 06/22/2021 07/03/2021 1:21 AM EDT documented as of this encounter Care Teams Fish Conservationist Relationship Specialty Start Date End Date Elyse Vasquez MD PCP - General Family Medicine 10/10/17 documented as of this encounter Additional Source Comments The information contained in this document represents components of the legal health record. It is not the complete legal health record.[facility]
--- OUTSIDE RECORDS SUMMARY | 2025-03-05 14:14 | XMS_ITS | Encounter Summary ---
Author Organization [facility] Address [address] [employer] [facility] [address] [place] [address] Phone Care Team Providers Care Telephone Interviewer Name Role Phone Elyse Vasquez MD Primary Care Provider [phone]- [phone] Encounter Details Date Type Department Care Team (Late Contact Info) Description 09/02/2019 Ancillary Orders Virtual Department [address] [place] [address] Elyse Vasquez MD [address] [place] [address] [email or web address] Breast screening Social History Tobacco Use Types [...] (Late Contact Info) Description 09/27/2024 Procedure Pass [address] [address] 05/06/2025 10:15 AM EST Appointment [address] [address] Elyse Vasquez MD [address] [place] [address] [email or web address] 06/29/2025 10:45 AM EDT Appointment , Bone Density - [facility] [address] [place] [address] Elvia Rae NP [address] [place] [phone] documented as of this encounter Results * BI MAMMOGRAM SCREENING WITH TOMOSYNTHESIS WITH CAD (BILATERAL) (12/04/2019 11:46 AM EDT) Anatomical Region Laterality Modality Breast Left, Breast Right, Breast Bilateral Bila teral Mammography 12/04/2019 12:2 2 PM EDT Impressions 12/04/2019 12:24 PM EDT No mammographic evidence of malignancy. BI-RADS CATEGORY: 1 - Negative. DENSITY: There are scattered fibroglandular densities. Narrative 12/04/2019 12:24 PM EDT Standard digital full-field 2-D C view and two-plane tomographic imaging was performed and compared with multiple prior studies, most recently 11/21/2018, with utilization of computer-aided detection. The breasts are composed of scattered fibroglandular densities. The stromal markings are essentially unchanged in overall appearance and distribution. No dominant spiculated mass, suspicious clustered microcalcifications, or focal zone of pathologic skin thickening or retraction are noted to have arisen in the interim. Procedure Note Meño Velasquez MD - 12/04/2019 Standard digital full-field 2-D C view and two-plane tomographic imagingwas performed and compared with multiple prior studies, most [id number]/21/2019, with utilization of computer-aided detection. The breasts are composed of scattered fibroglandular densities. Thestromal markings are essentially unchanged in overall appearance anddistribution. No dominant spiculated mass, suspicious clusteredmicrocalcifications, or focal zone of pathologic skin thickening orretraction are noted to have arisen in the interim. IMPRESSION: No mammographic evidence of malignancy. BI-RADS CATEGORY: 1 - Negative. DENSITY: There are scattered fibroglandular densities. us Elyse Vasquez MD IMG MG EXAMS Final Resul t documented in this encounter Visit Diagnoses Diagnosis Breast screening Breast screening, unspecified Breast screening Breast screening, unspecified documented in this encounter Additional Health Concerns Infection Onset Date Last Indicated Resolved Time CoV-Risk 06/26/2020 06/26/2020 07/06/2020 1:24 AM EDT CoV-Risk 06/20/2021 06/22/2021 07/03/2021 1:21 AM EDT documented as of this encounter Care Teams Telephone Interviewer Relationship Specialty Start Date End Date Elyse Vasquez MD [email or web address] PCP - General Family Medicine 10/10/17 documented as of this encounter Additional Source Comments The information contained in this document represents components of the legal health record. It is not the complete legal health record.[facility]
--- OUTSIDE RECORDS SUMMARY | 2025-03-05 14:14 | XMS_ITS | Encounter Summary ---
Author Organization [facility] Address [address] [employer] [facility] [address] [place] [address] Phone Care Team Providers Care Sign Designer Name Role Phone Elyse Vasquez MD Primary Care Provider [phone]- [phone] Encounter Details Date Type Department Care Team (Late st Contact Info) Description 08/28/2018 Ancillary Orders Virtual Department [address] [place] [address] Elyse Vasquez MD [address] [place] [address] [email or web address] Breast screening Social History Tobacco Use Types Packs/Day Years Used Date Smoking Tobacco: Never Assessed Comments No Sex and Gender Information Value Date Recorded Sex Assigned at Female 02/09/2019 6:21 AM EST Legal Sex Female 11:29 AM EDT Gender Identity Female 02/09/2019 6:21 AM EST Sexual Orientation Straight 02/09/2019 6: 21 AM EST documented as of this encounter Plan of Treatment Upcoming Encounters Date Type Department Care Team (Late st Contact Info) Description 09/27/2024 Procedure Pass [address] [address] 05/06/2025 10:15 AM EST Appointment [address] [address] Elyse Vasquez MD [address] [place] [phone] [email or web address] 06/29/2025 10:45 AM EDT Appointment [facility], Bone Density - [facility] [address] [place] [address] Elvia Rae NP [address] [place] [address] documented as of this encounter Results * BI MAMMOGRAM SCREENING WITH TOMOSYNTHESIS WITH CAD (BILATERAL) (11/21/2018 9:47 AM EDT) Anatomical Region Laterality Modality Breast Left, Breast Right, Breast Bilateral Bila teral Mammography 11/21/2018 10:5 9 AM EDT Impressions 11/21/2018 11:04 AM EDT BILATERAL BREASTS: Benign, no evidence of malignancy. Normal interval follow-up is recommended in 12 months. Bi-RADS: BI-RADS CATEGORY: 2 - Benign finding. DENSITY: There are scattered fibroglandular densities. POS - CDHMAMA Narrative 11/21/2018 11:04 AM EDT STUDY: Bilateral screening mammography with tomosynthesis and CAD TECHNIQUE: Bilateral full-field digital screening mammography is obtained and read in conjunction with computer-aided detection. Tomosynthesis as well as 2-D C view imaging were obtained. COMPARISON: Comparison made to multiple prior, most recent November 20, 2017, and most remote November 08, 2012. BREAST COMPOSITION: There are scattered areas of fibroglandular density RIGHT BREAST: No significant masses, calcifications or other abnormalities are seen. LEFT BREAST: History of previous excisional biopsy. No significant masses, calcifications or other abnormalities are seen. Procedure Note Katty Torre MD - 11/21/2018 STUDY: Bilateral screening mammography with tomosynthesis and CAD TECHNIQUE: Bilateral full-field digital screening mammography is obtainedand read in conjunction with computer-aided detection. Tomosynthesis aswell as 2-D C view imaging were obtained. COMPARISON: Comparison made to multiple prior, most recent November, and most remote November 08, 2012. BREAST COMPOSITION: There are scattered areas of fibroglandulardensity RIGHT BREAST: No significant masses, calcifications or otherabnormalities are seen. LEFT BREAST: History of previous excisional biopsy. No significantmasses, calcifications or other abnormalities are seen. IMPRESSION: BILATERAL BREASTS: Benign, no evidence of malignancy. Normal intervalfollow-up is recommended in 12 months. Bi-RADS: BI-RADS CATEGORY: 2 - Benign finding. DENSITY: There are scattered fibroglandular densities. POS - CDHMAMA us Elyse Vasquez MD IMG MG EXAMS Final Resul t documented in this encounter Visit Diagnoses Diagnosis Breast screening Breast screening, unspecified Breast screening Breast screening, unspecified documented in this encounter Additional Health Concerns Infection Onset Date Last Indicated Resolved Time CoV-Risk 06/26/2020 06/26/2020 07/06/2020 1:24 AM EDT CoV-Risk 06/20/2021 06/22/2021 07/03/2021 1:21 AM EDT documented as of this encounter Care Teams Sign Designer Relationship Specialty Start Date End Date Elyse Vasquez MD [email or web address] PCP - General Family Medicine 10/10/17 documented as of this encounter Additional Source Comments The information contained in this document represents components of the legal health record. It is not the complete legal health record.[facility]
--- OUTSIDE RECORDS SUMMARY | 2025-03-05 14:15 | XMS_ITS | Encounter Summary ---
Author Organization [facility] Address [address] [place] [address] Phone Care Team Providers Care Barrel Straightener Name Role Phone Elyse Vasquez MD Primary Care Provider [phone]- [phone] Encounter Details Date Type Department Care Team (Latest Contact Info) Description 01/23/2025 Transcribe Orders Virtual Department 30 [place] [address] Elvia Rae NP [address] [place] [phone] Asymptomatic menopausal state (Primary Dx) Social History Tobacco Use Types [...] st Contact Info) Description 09/27/2024 Procedure Pass [address] [address] 05/06/2025 10:15 AM EST Appointment [address] [address] Elyse Vasquez MD [address] [place] [address] 06/29/2025 10:45 AM EDT Appointment [facility] Bone Density [address] [address] Elvia Rae NP [address] [place] [address] Scheduled Orders Name Type Priority Associated Diagnoses Orde r Schedule DXA Screening Imaging Routine Asymptomatic menopausal state Expected: 02/22/2025, Expires: 01/23/2026 documented as of this encounter Visit Diagnoses Diagnosis Asymptomatic menopausal state- Primary documented in this encounter Care Teams Barrel Straightener Relationship Specialty Start Date End Date Elyse Vasquez MD PCP - General Family Medicine 10/10/17 documented as of this encounter Additional Source Comments The information contained in this document represents components of the legal health record. It is not the complete legal health record.[facility]
--- OUTSIDE RECORDS SUMMARY | 2025-03-05 14:15 | XMS_ITS | Encounter Summary ---
Author Organization [facility] Address [address] [facility] [address] [place] [address] Phone Care Team Providers Care Children'S Service Supervisor Name Role Phone Elyse Vasquez MD Primary Care Provider [phone]- [phone] Encounter Details Date Type Department Care Team (Late st Contact Info) Description 10/10/2017 Ancillary Orders Virtual Department [address] [place] [address] Elyse Vasquez MD [address] [place] [address] [email or web address] Breast screening Social History Tobacco Use Types Packs/Day Years Used Date Smoking Tobacco: Never Assessed Comments Unknown Sex and Gender Information Value Date Recorded Sex Assigned at Female 02/09/2019 6:21 AM EST Legal Sex Female 11:29 AM EDT Gender Identity Female 02/09/2019 6:21 AM EST Sexual Orientation Straight 02/09/2019 6 :21 AM EST documented as of this encounter Plan of Treatment Upcoming Encounters Date Type Department Care Team (Late st Contact Info) Description 09/27/2024 Procedure Pass [address] [address] 05/06/2025 10:15 AM EST Appointment [address] [address] Elyse Vasquez MD [address] [place] [phone] 06/29/2025 10:45 AM EDT Appointment [facility], Bone Density - [facility] [address] [place] [address] Elvia Rae NP [address] [place] [address] documented as of this encounter Results * BI MAMMOGRAM SCREENING WITH TOMOSYNTHESIS WITH CAD (BILATERAL) (11/20/2017 9:02 AM EDT) Anatomical Region Laterality Modality Breast Left, Breast Right, Breast Bilateral Bila teral Mammography 11/20/2017 10:1 3 AM EDT Impressions 11/20/2017 10:15 AM EDT No mammographic change indicative of malignancy. Routine screening is recommended. BI-RADS CATEGORY: 2 - Benign finding. DENSITY: The breast tissue is almost entirely fat. POS -CDHMAMA Narrative 11/20/2017 10:15 AM EDT Bilateral full-field digital screening mammography is obtained and read in conjunction with computer-aided detection. Tomosynthesis as well as 2-D C view imaging of both breasts in two planes also obtained. Comparison made to multiple prior, most recent 11/17/2016, and most remote 11/07/2011. No dominant mass, architectural distortion, worrisome asymmetry, or suspicious calcification is identified. No skin or nipple finding of concern is appreciated. There continues to be regression in prominence of the elliptical density in the inferior right breast. Procedure Note Sergei Alejandra MD - 11/20/2017 Bilateral full-field digital screening mammography is obtained and read inconjunction with computer-aided detection. Tomosynthesis as well as 2-D Cview imaging of both breasts in two planes also obtained. Comparison madeto multiple prior, most recent 11/17/2016, and most remote 11/07/2011. No dominant mass, architectural distortion, worrisome asymmetry, orsuspicious calcification is identified. No skin or nipple finding ofconcern is appreciated. There continues to be regression in prominence ofthe elliptical density in the inferior right breast. IMPRESSION: No mammographic change indicative of malignancy. Routine screening isrecommended. BI-RADS CATEGORY: 2 - Benign finding. DENSITY: The breast tissue is almost entirely fat. POS -CDHMAMA us Elyse Vasquez MD IMG MG EXAMS Final Resul t documented in this encounter Visit Diagnoses Diagnosis Breast screening Breast screening, unspecified Breast screening Breast screening, unspecified documented in this encounter Additional Health Concerns Infection Onset Date Last Indicated Resolved Time CoV-Risk 06/26/2020 06/26/2020 07/06/2020 1:24 AM EDT CoV-Risk 06/20/2021 06/22/2021 07/03/2021 1:21 AM EDT documented as of this encounter Care Teams Children'S Service Supervisor Relationship Specialty Start Date End Date Elyse Vasquez MD [email or web address] PCP - General Family Medicine 10/10/17 documented as of this encounter Additional Source Comments The information contained in this document represents components of the legal health record. It is not the complete legal health record.[facility]
--- OUTSIDE RECORDS SUMMARY | 2025-03-05 14:15 | XMS_ITS | Encounter Summary ---
Author Organization [facility] Address [address] [facility] [address] [place] [address] Phone Care Team Providers Care Tin Tie Machine Operator Automatic Name Role Phone Elyse Vasquez MD Primary Care Provider [phone]- [phone] Encounter Details Date Type Department Care Team (Late st Contact Info) Description 09/19/2023 Transcribe Orders Virtual Department [address] [place] [address] Elyse Vasquez MD [address] [place], [place] [phone] [email or web address] Breast screening (Primary Dx) Social History Tobacco [...] st Contact Info) Description 09/27/2024 Procedure Pass [address] [address] 05/06/2025 10:15 AM EST Appointment [address] [address] Elyse Vasquez MD [address] [place] [address] 06/29/2025 10:45 AM EDT Appointment [facility] Bone Density [address] [address] Elvia Rae NP [address] [place] [phone] documented as of this encounter Results * BI MAMMOGRAM SCREENING WITH TOMOSYNTHESIS WITH CAD (BILATERAL) (12/12/2023 12:51 PM EDT) Anatomical Region Laterality Modality Breast Left, Breast Right, Breast Bilateral Bila teral Mammography 12/12/2023 7:34 PM EDT Impressions 12/12/2023 7:35 PM EDT No mammographic evidence of malignancy in either breast. Annual screening mammography is recommended. BI-RADS 1 NEGATIVE The patient will be notified of the results and recommendations. Narrative 12/12/2023 7:35 PM EDT BI MAMMOGRAM SCREENING WITH TOMOSYNTHESIS WITH CAD (BILATERAL) Additional patient information: Screening. COMPARISON: Comparison is made with relevant prior imaging. Breast composition: There are scattered areas of fibroglandular density. FINDINGS: No abnormal masses, suspicious calcifications, or other significant findings are identified mammographically in either breast. Procedure Note Nevaeh Wray MD - 12/12/2023 BI MAMMOGRAM SCREENING WITH TOMOSYNTHESIS WITH CAD (BILATERAL) Additional patient information: Screening. COMPARISON: Comparison is made with relevant prior imaging. Breast composition: There are scattered areas of fibroglandular density. FINDINGS: No abnormal masses, suspicious calcifications, or other significantfindings are identified mammographically in either breast. IMPRESSION: No mammographic evidence of malignancy in either breast. Annual screening mammography is recommended. BI-RADS 1 NEGATIVE The patient will be notified of the results and recommendations. us Elyse Vasquez MD IMG MG EXAMS Final Resul t documented in this encounter Visit Diagnoses Diagnosis Breast screening- Primary Breast screening, unspecified Breast screening Breast screening, unspecified documented in this encounter Care Teams Tin Tie Machine Operator Automatic Relationship Specialty Start Date End Date Elyse Vasquez MD PCP - General Family Medicine 10/10/17 documented as of this encounter Additional Source Comments The information contained in this document represents components of the legal health record. It is not the complete legal health record.[facility]
--- OUTSIDE RECORDS SUMMARY | 2025-03-05 14:15 | XMS_ITS | Encounter Summary ---
Author Organization [facility] Address [address] [facility] [address] [place] [address] Phone Care Team Providers Care Cryptological Technician Name Role Phone Elyse Vasquez MD Primary Care Provider [phone]- [phone] Encounter Details Date Type Department Care Team (Late st Contact Info) Description 11/06/2024 Procedure Pass [facility] Endoscopy Admitting Dept Virtual Department [address] [place] [address] Social History Tobacco Use Types Packs/Day Years [...] Contact Info) Description 09/27/2024 Procedure Pass [address] [address] 05/06/2025 10:15 AM EST Appointment [address] [address] Elyse Vasquez MD [address] [place] [address] 06/29/2025 10:45 AM EDT Appointment [facility] Bone Density [address] [address] Elvia Rae NP [address] [place] [address] documented as of this encounter Visit Diagnoses Not on filedocumented in this encounter Care Teams Cryptological Technician Relationship Specialty Start Date End Date Elyse Vasquez MD PCP - General Family Medicine 10/10/17 documented as of this encounter Additional Source Comments The information contained in this document represents components of the legal health record. It is not the complete legal health record.[facility]
--- OUTSIDE RECORDS SUMMARY | 2025-03-05 14:15 | XMS_ITS | Encounter Summary ---
Author Organization [facility] Address [address] [facility] [address] [place] [address] Phone Care Team Providers Care Soda Maker Name Role Phone Elyse Vasquez MD Primary Care Provider [phone]- [phone] Encounter Details Date Type Department Care Team (Late Contact Info) Description 09/19/2023 Procedure Pass [address] [address] Social History Tobacco Use Types Packs/Day Years [...] (Late Contact Info) Description 09/27/2024 Procedure Pass [address] [address] 05/06/2025 10:15 AM EST Appointment [address] [address] Elyse Vasquez MD [address] [place] [address] 06/29/2025 10:45 AM EDT Appointment [facility], Bone Density - [address] [address] Elvia Rae NP [address] [place] [phone] documented as of this encounter Visit Diagnoses Not on filedocumented in this encounter Care Teams Soda Maker Relationship Specialty Start Date End Date Elyse Vasquez MD PCP - General Family Medicine 10/10/17 documented as of this encounter Additional Source Comments The information contained in this document represents components of the legal health record. It is not the complete legal health record.[facility]
--- OUTSIDE RECORDS SUMMARY | 2025-03-05 14:15 | XMS_ITS | Encounter Summary ---
Author Organization [facility] Address [address] [facility] [address] [place] [address] Phone Care Team Providers Care Supervisor Sewing Room Name Role Phone Elyse Vasquez MD Primary Care Provider [phone]- [phone] Reason for Referral * MRI/CAT Scan - Closed Specialty Diagnoses / Procedures Referred By Contac t Referred To Contact Radiology Diagnoses Chest pain, unspecified type Procedures NC Myocardial Perfusion Pharmacologic Stress Multiple John Lizama MD Phone: tel: fax: [email or web address] Referral ID Status Reason Start Date Expiration Date Visits Re quested Visits Authorized [id number] Closed 11/13/2020 11/13/2021 4 4 Encounter Details Date Type Department Care Team (Late st Contact Info) Description 11/13/2020 Transcribe Orders Virtual Department 30 [place] [address] John Lizama MD [address] [place], [place] [phone] [email or web address] Chest pain, unspecified type (Primary Dx) Social History Tobacco Use Types [...] st Contact Info) Description 09/27/2024 Procedure Pass [address] [address] 05/06/2025 10:15 AM EST Appointment [address] [address] Elyse Vasquez MD [address] [place] [address] 06/29/2025 10:45 AM EDT Appointment [facility] Bone Density [address] [address] Elvia Rae NP [address] [place] [phone] documented as of this encounter Results * NC Myocardial Perfusion Pharmacologic Stress Multiple (11/30/2020 12:23 PM EDT) Anatomical Region Laterality Modality Heart, Vascular Nuclear Medicine 11/30/2020 12:2 6 PM EDT Impressions 11/30/2020 12:56 PM EDT Patient's cardiac stress test report is not available at the time of this dictation. Correlate with cardiology whether there is suboptimal heart rate response which would reduces exam sensitivity. No ischemia or infarction. Normal ejection fraction of 75%. Narrative 11/30/2020 12:56 PM EDT COMPARISON: None. DOSE: 9.9 mCi at rest and 32.7 mCi at stress of Tc99m Sestamibi TECHNIQUE: Patient's cardiac stress test report is not available at the time of this dictation. Correlate with cardiology. NUCLEAR MEDICINE CARDIAC SPECT FINDINGS: Left ventricle is normal in size from stress to rest. No perfusion defects. Normal wall motion and thickening with an LVEF of 75%. T.I.D. Ratio: 1.03 which is within normal limits. Procedure Note Morgan Driver MD - 11/30/2020 COMPARISON: None. DOSE: 9.9 mCi at rest and 32.7 mCi at stress of Tc99m Sestamibi TECHNIQUE: Patient's cardiac stress test report is not available atthe time of this dictation. Correlate with cardiology. NUCLEAR MEDICINE CARDIAC SPECT FINDINGS: Left ventricle is normal in size from stress to rest. No perfusiondefects. Normal wall motion and thickening with an LVEF of 75%. T.I.D. Ratio: 1.03 which is within normal limits. IMPRESSION: Patient's cardiac stress test report is not available at the time ofthis dictation. Correlate with cardiology whether there is suboptimalheart rate response which would reduces exam sensitivity. No ischemiaor infarction. Normal ejection fraction of 75%. John Vera MD CV NM CARDIAC Fi nal Result documented in this encounter Visit Diagnoses Diagnosis Chest pain, unspecified type- Primary Chest pain, unspecified type documented in this encounter Additional Health Concerns Infection Onset Date Last Indicated Resolved Time CoV-Risk 06/20/2021 06/22/2021 07/03/2021 1:21 AM EDT documented as of this encounter Care Teams Supervisor Sewing Room Relationship Specialty Start Date End Date Elyse Vasquez MD PCP - General Family Medicine 10/10/17 documented as of this encounter Additional Source Comments The information contained in this document represents components of the legal health record. It is not the complete legal health record.[facility]
--- OUTSIDE RECORDS SUMMARY | 2025-03-05 14:15 | XMS_ITS | Encounter Summary ---
Author Organization [facility] Address [address] [facility] [address] [place] [address] Phone Care Team Providers Care Fourdrinier Machine Operator Name Role Phone Elyse Vasquez MD Primary Care Provider [phone]- [phone] Encounter Details Date Type Department Care Team (Late Contact Info) Description 11/30/2020 Ancillary Orders Non-Invasive Cardiology [address] [place] [address] John Lizama MD [address] [place] [address] [email or web address] Chest pain, unspecified type Social History Tobacco Use Types Packs/Day Years [...] (Late Contact Info) Description 09/27/2024 Procedure Pass [address] [address] 05/06/2025 10:15 AM EST Appointment [address] [place] [address] Elyse Vasquez MD [address] [place] [address] 06/29/2025 10:45 AM EDT Appointment [facility], Bone Density - [address] [address] Elvia Rae, RACHELE [address] [place] [phone] documented as of this encounter Results * NC Stress Result for Nuclear Stress Test (11/30/2020 4:04 PM EDT) Max BP Systolic 230 mmHg [facility] Max BP Diastolic 104 mmHg [facility] Max HR 117 BPM [facility] Resting HR 75 BPM [facility] Resting BP Systolic 160 mmHg [facility] Resting BP Diastolic 84 mmHg [facility] Peak METS 1.0 METS [facility] Peak HR 85 BPM [facility] Peak BP Systolic 152 mmHg [facility] Peak BP Diastolic 68 mmHg [facility] Anatomical Region Laterality Modality Heart Other 11/30/2020 10:1 9 AM EDT 11/30/2020 4:02 PM EDT Narrative 12/01/2020 10:03 AM EDT Response to Stress The patient exercised for minutes seconds, achieving 1.0 METS at peak exercise. Baseline blood pressure was 160/84 mmHg, and baseline heart rate was 75 bpm. Peak blood pressure was 152/68 mmHg. The patient achieved a peak heart rate of 85 bpm, which is% of their maximum predicted heart rate. Rate pressure product was [address]. REPORT- Test was performed as a walking Regadenoson test due to hypertension at rest. 0.4 mg Regadenoson (lexiscan) given IV push over 10 seconds as per protocol immediately followed by injection of Tc99m Sestamibi by Nayeli nuclear test technician. 1. EKG - Baseline EKG showed sinus ryhthm. 2. SYMPTOMS - No chest pain, she did report an increase in shortness of breath which lasted about 3 minutes into recovery and resolved spontaneously. 3. PHYSIOLOGY - Resting HR was 117bpm. After Lexiscan injection, HR 90bpm. BP at rest 170/100, BP 230/102 after the injection of Lexiscan, BP 152/68 on discharge from stress lab. 4. ARRHYTHMIAS - None Conclusion - There were no EKG changes suggestive for ischemia or symptoms concerning for angina. Hypertensive throughout testing. Nuclear images pending and will be reported separately. Madonna Loya TE[employer] T[employer] F[employer] WORKER with Dr. Lopez . John Vera MD CV NM CARDIAC Fi nal Result documented in this encounter Visit Diagnoses Diagnosis Chest pain, unspecified type Chest pain, unspecified type documented in this encounter Additional Health Concerns Infection Onset Date Last Indicated Resolved Time CoV-Risk 06/20/2021 06/22/2021 07/03/2021 1:21 AM EDT documented as of this encounter Care Teams Fourdrinier Machine Operator Relationship Specialty Start Date End Date Elyse Vasquez MD [email or web address] PCP - General Family Medicine 10/10/17 documented as of this encounter Additional Source Comments The information contained in this document represents components of the legal health record. It is not the complete legal health record.[facility]
== END 2025-03-05 12:43 | disposition home or self-care (01) ==
LOC: HO.HBS 11:49
PROVIDERS: PCP Family Medicine; Visit Provider Physician Assistant Surgical
DX: E66.3 Overweight (principal); Z68.28 Body mass index [BMI] 28.0-28.9, adult; Z90.3 Acquired absence of stomach [part of]; Z98.890 Other specified postprocedural states; Z98.84 Bariatric surgery status
CPT/HCPCS: 99213; G2211

== ENCOUNTER → 2025-03-05 11:48 | Outpatient (BNVA) | payer MEDICARE, SELFPAY | PROVIDERS: PCP Family Medicine; Visit Provider Physician Assistant Surgical | DX: E66.3 Overweight (principal); Z68.28 Body mass index [BMI] 28.0-28.9, adult; Z90.3 Acquired absence of stomach [part of]; Z98.890 Other specified postprocedural states; Z87.891 Personal history of nicotine dependence | CPT/HCPCS: 99212 ==